=== PATIENT | male | born 1970 | race Caucasian/White ===

== ENCOUNTER 2022-10-02 09:51 | Emergency (ER) | payer MEDICAID, SELFPAY ==
[2022-10-02 10:01] VITALS: BP 131/90; PULSE 102; RESP 20; TEMP 36.6; O2SAT 99; BMI 19.4
[2022-10-02 10:34] LABS: Ammonia 62 umol/L (13-55)
[2022-10-02 10:37] LABS: Hemoglobin 12.1 g/dl (14.0-18.0); Mean Corpuscular HGB Conc 35.6 g/dl (31.0-36.0); Mean Corpuscular Hemoglobin 34.6 pg (27.0-33.0); Mean Corpuscular Volume 97.1 fL (80.0-98.0); Red Cell Distribution Width 13.5 % (11.0-16.0); White Blood Count 4.3 X10*3/uL (4.8-10.8)
[2022-10-02 10:43] LABS: Alanine Aminotransferase 107 U/L (0-40); Albumin Level 2.8 g/dL (3.5-5.0); Alkaline Phosphatase 347 U/L (39-117); Anion Gap 9 (12-20); Aspartate Amino Transferase 83 U/L (5-37); Bilirubin Direct 0.8 mg/dL (0.0-0.5); Bilirubin Total 1.5 mg/dL (0.0-1.0); Blood Urea Nitrogen 15 mg/dL (9-16); Calcium 8.6 mg/dL (8.4-10.2); Carbon Dioxide 26 mmol/L (22-29); Chloride 105 mmol/L (96-108); Creatinine Clr Calc Pharmacy 69.5; Estimated Glomerular Filt Rate > 60; Glucose Random 290 mg/dL (60-115); Lipase 21 U/L (8-78); Potassium 4.4 mmol/L (3.3-5.1); Sodium 136 mmol/L (135-145); Total Protein 8.1 g/dL (6.5-8.0)
[2022-10-02 10:44] LABS: B Type Natriuretic Peptide < 10 pg/mL (<100)
[2022-10-02 11:30] LABS: Mean Platelet Volume 10.5 fL (9.4-12.4); Platelet Count 87 X10*3/uL (160-400)
--- NOTE | 2022-10-02 17:39 | ED_ITS ---
POC Glucose 251 H (60-115) mg/dL Random Glucose (60-115) mg/dL Calcium (8.4-10.2) mg/dL Total Bilirubin (0.0-1.0) mg/dL Direct Bilirubin (0.0-0.5) mg/dL AST (5-37) U/L ALT (0-40) U/L Alkaline Phosphatase (39-117) U/L Ammonia (13-55) umol/L B-Natriuretic Peptide < 10 (<100) pg/mL Total Protein (6.5-8.0) g/dL Albumin (3.5-5.0) g/dL Lipase (8-78) U/L Medications Administered Discontinued Medications Generic Name Dose Route Start Last Admin Trade Name Freq PRN Reason Stop Dose Admin Carvedilol 3.125 mg 10/02/22 18:06 10/02/22 18:18 Carvedilol 3.125 Mg Tablet PO 10/02/22 18:07 3.125 mg ONCE ONE Administration Protocol Furosemide 20 mg 10/02/22 18:06 10/02/22 18:18 Furosemide 20 Mg Tablet PO 10/02/22 18:07 20 mg ONCE ONE Administration Protocol Lactulose 20 gm 10/02/22 18:06 10/02/22 18:18 Lactulose 20 Gm/30 Ml Solution PO 10/02/22 18:07 20 gm ONCE ONE Administration Discharge Plan Discharge Clinical Impression: Hepatic cirrhosis due to chronic hepatitis C infection Patient Disposition: Home, Self-Care Instructions: Cirrhosis (ED), Ascites (ED) Additional Instructions: 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 Follow-up as outpatient report to ED if increase Shortness of breath Prescriptions: New Biktarvy 50-200-25 mg tablet 1 tab PO DAILY Qty: 30 3RF carvedilol 3.125 mg tablet 3.125 mg PO BID Qty: 60 2RF Rx Instructions: must administer with a meal/food doxepin 25 mg capsule 25 mg PO BEDTIME Qty: 30 2RF furosemide 20 mg tablet 20 mg PO QAM Qty: 30 2RF gabapentin 400 mg capsule 800 mg PO BID Qty: 120 2RF lactulose 20 gram/30 mL solution 10 g PO BID Qty: 1200 0RF paroxetine HCl [Paxil] 10 mg tablet 10 mg PO QPM Qty: 30 2RF sofosbuvir-velpatasvir [Epclusa] 400-100 mg tablet 1 tab PO DAILY Qty: 30 0RF spironolactone 50 mg tablet 50 mg PO QAM Qty: 30 2RF Referrals: Regis Frost MD [Physician] - 2 weeks Interventions: ED Discharge Assessment Last Done: 10/02/22 19:17 Discharge Date/Time: 10/02/22 19:17 HPI - Abdominal Pain General Chief Complaint: Abdominal Pain Stated Complaint: abd pain fluid back up Time Seen by Provider: 10/02/22 17:37 Source: patient Mode of arrival: ambulatory Limitations: no limitations History of Present Illness HPI narrative: Patient 52 years old with history of HIV hepatitis-C cirrhosis with ascites just moved from [place] asking for paracentesis. Patient had last% disease a month ago only 1 L of fluid was removed at this time patient does have slight distention of the abdomen without any significant shortness of breath no abdominal pain no fever. Patient ran out of his medication 2 days ago has not taking his furosemide denies any abdominal pain no fever or chills patient looking for GI and asking for medication refills denies any confusion. Blood pressure at time of examination was 102/65 pulse rate 78 saturating 96% at room air Related Data Previous Rx's Medication Instructions Recorded bictegravir 50 mg-emtricitabine 1 tab PO DAILY #30 tabs 10/02/22 200 mg-tenofovir alafenam 25 mg tablet (Biktarvy) carvedilol 3.125 mg tablet 3.125 mg PO BID #60 tabs 10/02/22 doxepin 25 mg capsule 25 mg PO BEDTIME #30 caps 10/02/22 furosemide 20 mg tablet 20 mg PO QAM #30 tabs 10/02/22 gabapentin 400 mg capsule 800 mg PO BID #120 caps 10/02/22 lactulose 20 gram/30 mL oral 10 g (15 mL) PO BID #1,200 mL 10/02/22 solution paroxetine HCl 10 mg tablet (Paxil) 10 mg PO QPM #30 tabs 10/02/22 sofosbuvir 400 mg-velpatasvir 100 1 tab PO DAILY #30 tabs 10/02/22 mg tablet (Epclusa) spironolactone 50 mg tablet 50 mg PO QAM #30 tabs 10/02/22 Allergies Allergy/AdvReac Type Severity Reaction Status Date / Time No Known Allergies Allergy Verified 10/02/22 17:47 Review of Systems Review of Systems Yes all other systems are reviewed and are negative [facility] Past Medical History Medical History (Updated 10/03/22 @ 00:00 by Bibiana Frye) Diabetes mellitus Social History Social History Smoked in Last 30 Days: No Use of substances other than those prescribed or required for medical reasons: No Advance Directives: No Advance Directives Information Provided: No Physical Exam ED Vital Signs: Vital Signs - 24 hr 10/02/22 10:01 10/02/22 17:40 Temperature 97.9 F 98.3 F Pulse Rate 102 H 78 Respiratory Rate 20 18 Blood Pressure 131/90 H 102/65 Pulse Oximetry 99 96 Oxygen Delivery Method Room Air Room Air BMI result Body Mass Index 19.4 Appearance: Alert. Oriented X3. No acute distress. Emaciated Eyes: PERRLA, No Nystagmus ENT: Pharynx normal. Oral Mucosa moist Neck: Normal inspection. Neck supple. CVS: Normal heart rate and rhythm. Pulses normal. Respiratory: No respiratory distress. Equal air entry bilateral, no wheezing/rales/rhonchi Abdomen: Soft free fluid+. Bowel sounds are present, no mass palpable, no CVA tenderness Skin: Skin warm and dry. Normal skin color. Normal skin turgor. Extremities: No lower extremity edema. No calf tenderness Neuro: Oriented X 3. No motor deficit. Medical Decision Making Lab Data MDM Lab Attestation statement: I reviewed the patient's lab results. Result Diagrams: 10/02/22 10:15 10/02/22 10:15 Labs: Lab Results 10/02/22 10/02/22 10/02/22 Range/Units 10:15 10:15 10:15 WBC 4.3 L (4.8-10.8) X10*3/uL RBC 3.50 L (4.60-5.80) X10*6/uL Hgb 12.1 L (14.0-18.0) g/dl Hct 34.0 L (42.0-52.0) % MCV 97.1 (80.0-98.0) fL MCH 34.6 H (27.0-33.0) pg MCHC 35.6 (31.0-36.0) g/dl RDW 13.5 (11.0-16.0) % Plt Count 87 L (160-400) X10*3/uL MPV 10.5 (9.4-12.4) fL Absolute Nucleated RBC 0.000 (0.0-0.012) X10*3/uL Nucleated RBC % (auto) 0.0 (0.0-0.2) /100WBC Sodium 136 (135-145) mmol/L Potassium 4.4 (3.3-5.1) mmol/L Chloride 105 (96-108) mmol/L Carbon Dioxide 26 (22-29) mmol/L Anion Gap 9 L (12-20) BUN 15 (9-16) mg/dL Creatinine 0.83 (0.5-1.4) mg/dL Estim Creat Clear Calc 69.5 Estimated GFR > 60 POC Glucose (60-115) mg/dL Random Glucose 290 H (60-115) mg/dL Calcium 8.6 (8.4-10.2) mg/dL Total Bilirubin 1.5 H (0.0-1.0) mg/dL Direct Bilirubin 0.8 H (0.0-0.5) mg/dL AST 83 H (5-37) U/L ALT 107 H (0-40) U/L Alkaline Phosphatase 347 H (39-117) U/L Ammonia 62 H (13-55) umol/L B-Natriuretic Peptide (<100) pg/mL Total Protein 8.1 H (6.5-8.0) g/dL Albumin 2.8 L (3.5-5.0) g/dL Lipase 21 (8-78) U/L 10/02/22 10/02/22 Range/Units 10:15 18:07 WBC (4.8-10.8) X10*3/uL RBC (4.60-5.80) X10*6/uL Hgb (14.0-18.0) g/dl Hct (42.0-52.0) % MCV (80.0-98.0) fL MCH (27.0-33.0) pg MCHC (31.0-36.0) g/dl RDW (11.0-16.0) % Plt Count (160-400) X10*3/uL MPV (9.4-12.4) fL Absolute Nucleated RBC (0.0-0.012) X10*3/uL Nucleated RBC % (auto) (0.0-0.2) /100WBC Sodium (135-145) mmol/L Potassium (3.3-5.1) mmol/L Chloride (96-108) mmol/L Carbon Dioxide (22-29) mmol/L Anion Gap (12-20) BUN (9-16) mg/dL Creatinine (0.5-1.4) mg/dL Estim Creat Clear Calc Estimated GFR
[2022-10-02 17:40] VITALS: BP 102/65; PULSE 78; RESP 18; TEMP 36.8; O2SAT 96
[2022-10-02 18:12] LABS: Glucose, Whole Blood 251 mg/dL (60-115)
[2022-10-02] MEDS: carvediloL 3.125 MG TABLET PO (18:18)
[2022-10-02] MEDS: Lactulose 20 GM/30 ML SOLUTION PO (18:18)
[2022-10-02] MEDS: Furosemide 20 MG TABLET PO (18:18)
--- NOTE | 2022-10-02 19:17 | PC.NURSE ---
Discharge instructions reviewed with pt. Pt verbalizes understanding.
== END 2022-10-02 19:17 | disposition home or self-care (01) ==
LOC: HO.ED 18:49
PROVIDERS: Emergency Provider Internal Medicine
DX: B18.2 Chronic viral hepatitis C (principal); K74.60 Unspecified cirrhosis of liver; R06.02 Shortness of breath; Z79.899 Other long term (current) drug therapy
CPT/HCPCS: 36415; 80048; 80076; 82140; 82947; 83690; 83880; 85027; 99283; 99284

== ENCOUNTER 2022-10-27 14:40 | Outpatient (REF) | payer OTHER, SELFPAY | END 2022-10-27 14:41 | disposition home or self-care (01) | LOC: HO.LAB 14:40 | PROVIDERS: Visit Provider Internal Medicine | DX: B18.2 Chronic viral hepatitis C (principal); K74.60 Unspecified cirrhosis of liver; B20 Human immunodeficiency virus [HIV] disease; Z79.899 Other long term (current) drug therapy | CPT/HCPCS: 99202 ==

== ENCOUNTER 2022-11-01 10:50 | Outpatient (REF) | payer OTHER, SELFPAY ==
[2022-11-01 12:30] LABS: INTERNATIONAL NORM RATIO 1.1 (0.9-1.1); Prothrombin Time 12.8 SEC (10.0-13.1)
[2022-11-01 13:07] LABS: Alanine Aminotransferase 87 U/L (0-40); Albumin Level 3.1 g/dL (3.5-5.0); Alkaline Phosphatase 200 U/L (39-117); Aspartate Amino Transferase 82 U/L (5-37); Bilirubin Direct 0.6 mg/dL (0.0-0.5); Bilirubin Total 1.3 mg/dL (0.0-1.0); Gamma Glutamyl Transpeptidase 322 U/L (11-51); Iron 76 mcg/dL (45-160); Percent Iron Saturation 27 % (15-50); Total Iron Binding Capacity 280 mcg/dL (228-428); Total Protein 8.6 g/dL (6.5-8.0); Unsaturated Iron Binding 204 ug/dL
[2022-11-01 13:41] LABS: Folate 15.3 ng/mL (> or = 4.0); Vitamin B12 1897 pg/mL (200-900)
[2022-11-01 13:49] LABS: Ferritin 76 ng/mL (20-250); Vitamin D 25-OH Total 17.7 ng/mL (>30)
[2022-11-02 10:18] LABS: HBS Num1 18.67 mIU/mL (0-7.99); HBsAGNum1 0.26 S/CO (0.00-0.99); Hepatitis B Surface Antigen Negative (Negative); ~Hepatitis B Surface Antibody REACTIVE (Nonreactive)
[2022-11-02 10:21] LABS: Hepatitis A Antibody IgG REACTIVE (Nonreactive); ~Hepatitis A Antibody IgG 10.11 S/CO (0.00-0.99)
[2022-11-02 12:14] LABS: HIV AB/AG Reactive (Nonreactive)
[2022-11-02 12:48] LABS: Absolute CD4 Count 365 cells/uL (490-1740); Absolute CD8 Count 342 cells/uL (180-1170); Absolute Lymphocytes 1146 cells/uL (850-3900); CD4 CD8 Ratio 1.07 (0.86-5.00); Percent CD4 Cells 32 % (30-61); Percent CD8 Cells 30 % (12-42)
[2022-11-02 12:49] LABS: HBc Num1 8.12 S/CO (0.00-0.79)
[2022-11-02 12:53] LABS: HBc Num2 7.63 S/CO; HBc Num3 8.43 S/CO; Hepatitis B Core Antibody Reactive (Nonreactive)
== END 2022-11-01 10:51 | disposition home or self-care (01) ==
LOC: HO.LAB 10:50
PROVIDERS: Visit Provider Internal Medicine
DX: B20 Human immunodeficiency virus [HIV] disease (principal); B18.2 Chronic viral hepatitis C; K74.60 Unspecified cirrhosis of liver
CPT/HCPCS: 36415; 80076; 82306; 82607; 82728; 82746; 82784; 82977; 83540; 85610; 86015; 86255; 86256; 86360; 86376; 86704; 86706; 86708; 86803; 87340; 87389

== ENCOUNTER → 2022-11-08 11:24 | Outpatient (BNVA) | payer OTHER, SELFPAY | PROVIDERS: Visit Provider Internal Medicine | DX: B20 Human immunodeficiency virus [HIV] disease (principal); B19.20 Unspecified viral hepatitis C without hepatic coma; K74.60 Unspecified cirrhosis of liver; A63.0 Anogenital (venereal) warts | CPT/HCPCS: 99202 ==

== ENCOUNTER 2022-11-24 10:02 | Outpatient (REF) | payer MEDICAID, SELFPAY ==
[2022-11-24 11:03] LABS: Potassium Urine Random 21.2 mmol/L
[2022-12-01 09:33] LABS: Hepatitis C Genotype 1a
== END 2022-11-24 10:03 | disposition home or self-care (01) ==
LOC: HO.LAB 10:02
PROVIDERS: Visit Provider Internal Medicine
DX: B18.2 Chronic viral hepatitis C (principal); K74.60 Unspecified cirrhosis of liver
CPT/HCPCS: 36415; 84133; 84300; 87902

== ENCOUNTER → 2022-11-28 12:33 | Outpatient (BNVA) | payer MEDICAID, SELFPAY | PROVIDERS: Visit Provider Internal Medicine | DX: B18.2 Chronic viral hepatitis C (principal); K74.60 Unspecified cirrhosis of liver; B20 Human immunodeficiency virus [HIV] disease; R76.8 Other specified abnormal immunological findings in serum | CPT/HCPCS: 99212 ==

== ENCOUNTER 2022-11-30 08:07 | Outpatient (REF) | payer MEDICAID, SELFPAY ==
[2022-11-30 09:31] LABS: Anion Gap 12 (12-20); Blood Urea Nitrogen 11 mg/dL (9-16); Calcium 8.3 mg/dL (8.4-10.2); Carbon Dioxide 27 mmol/L (22-29); Chloride 100 mmol/L (96-108); Estimated Glomerular Filt Rate > 60; Glucose Random 359 mg/dL (60-115); Potassium 3.9 mmol/L (3.3-5.1); Sodium 135 mmol/L (135-145)
[2022-12-03 08:03] LABS: HIV RNA PCR Qn Copies <20 DETECTED copies/mL (NOT DETECTED); HIV RNA PCR Qn Log Copies <1.30 DETECTED (NOT DETECTED)
[2022-12-11 19:29] LABS: Hepatitis Delta Antibody NEGATIVE
== END 2022-11-30 08:08 | disposition home or self-care (01) ==
LOC: HO.LAB 08:07
PROVIDERS: Visit Provider Internal Medicine
DX: Z11.4 Encounter for screening for human immunodeficiency virus [HIV] (principal); K74.60 Unspecified cirrhosis of liver; B20 Human immunodeficiency virus [HIV] disease; R76.8 Other specified abnormal immunological findings in serum; Z79.899 Other long term (current) drug therapy
CPT/HCPCS: 36415; 80048; 82105; 86692; 87536

== ENCOUNTER 2023-01-02 08:15 | Outpatient (REF) | payer MEDICAID, SELFPAY ==
--- NOTE | ~2023-01-02 | US_ITS ---
EXAMINATION: US ABDOMEN COMPLETE CLINICAL INFORMATION: Chronic viral hepatitis C. COMPARISON: None available. TECHNIQUE: Real-time imaging of the abdominal viscera. FINDINGS: PANCREAS: The pancreas appears unremarkable, without masses or ductal dilatation, with the exception of the tail which is obscured by bowel gas. ABDOMINAL AORTA: The aorta demonstrates calcific atherosclerotic changes without evidence of aneurysm. INFERIOR VENA CAVA: Visualized portions are normal. LIVER: The liver is extremely heterogeneous in echotexture. There is an area of calcification in the left lobe of the liver that measures 3 x 4 x 4 mm. There is a 1.6 x 1.2 x 1.1 cm liver mass seen adjacent to the gallbladder fossa with heterogeneous echogenicity. There is no intrahepatic biliary duct dilatation seen. DOPPLER INTERROGATION: The portal venous system is patent with normal hepatopedal flow. The main, right and left hepatic arteries are patent. Velocity in the main hepatic artery is 45 cm/s. Middle left and right hepatic veins are normal and patent. The IVC is patent with a normal waveform. GALLBLADDER: The gallbladder wall is thickened at 6 mm with fluid seen within the wall of the gallbladder. A 3 mm gallbladder polyp is seen. COMMON BILE DUCT: Normal in caliber measuring 0.7 cm in diameter. RIGHT KIDNEY: Two cysts are noted in the right kidney measuring 1.4 and 1.6 cm. One has a thin septum. These are benign Bosniak class I and II and need no additional imaging or followup. No hydronephrosis. No renal calculi or focal parenchymal lesions. The kidney measures 8.9 cm in maximum dimension. LEFT KIDNEY: No hydronephrosis. No renal calculi or focal parenchymal lesions. The kidney measures 11.0 cm in maximum dimension. SPLEEN: The spleen is enlarged measuring 13.2 cm in maximum dimension. FREE FLUID: None. US/US duplex arterial venous comp IMPRESSION: 1. Heterogeneous liver with a 1.6 cm mass adjacent to the gallbladder fossa. MRI is recommended for further evaluation. 2. Thickened gallbladder wall with fluid in the wall and gallbladder polyp. Please correlate clinically.
== END 2023-01-02 08:16 | disposition home or self-care (01) ==
LOC: HO.US 08:15
PROVIDERS: Visit Provider Internal Medicine
DX: B18.2 Chronic viral hepatitis C (principal); K74.60 Unspecified cirrhosis of liver
CPT/HCPCS: 76700; 93975

== ENCOUNTER → 2023-01-15 13:21 | Outpatient (BNVA) | payer MEDICAID, SELFPAY | PROVIDERS: Visit Provider Internal Medicine | DX: K74.60 Unspecified cirrhosis of liver (principal); B18.2 Chronic viral hepatitis C; B20 Human immunodeficiency virus [HIV] disease; R16.0 Hepatomegaly, not elsewhere classified; R76.8 Other specified abnormal immunological findings in serum; Z79.899 Other long term (current) drug therapy | CPT/HCPCS: 99212 ==

== ENCOUNTER 2023-01-24 13:42 | Outpatient (REF) | payer MEDICAID, SELFPAY ==
--- NOTE | ~2023-01-24 | CT_ITS ---
EXAMINATION: CT ABDOMEN AND PELVIS WITH CONTRAST CLINICAL INFORMATION: Left lower quadrant abdominal pain COMPARISON: Ultrasound abdomen 01/02/2023 TECHNIQUE: Multidetector volumetric images were obtained from the superior aspect of the liver through the pubic symphysis following administration 85 mL of Omnipaque 350 intravenous contrast. Sagittal and coronal reformatted images were obtained on the technologist's workstation. Oral contrast: No This CT examination was performed using dose optimization techniques as appropriate, variously including the following: *Automated exposure control *Adjustment of mA and/or kV according to patient size (this includes techniques or standardized protocols for targeted exams where dose is matched to indication/reason for exam; i.e. extremities or head) *Use of iterative reconstruction technique DLP: 246 mGy-cm FINDINGS: LUNG BASES: The visualized lung bases are unremarkable. LIVER, GALLBLADDER, AND BILIARY TREE: The liver has a cirrhotic appearance without nodular border. Again seen is a mass adjacent to the gallbladder measuring 1.7 x 1.8 cm which is much better seen on both the prior ultrasound MRI. This is consistent with malignancy although not felt to be classic for hepatocellular carcinoma. Percutaneous biopsy could always be performed if necessary. No biliary ductal dilatation is seen. The gallbladder is contracted and not well evaluated. PANCREAS: Unremarkable. SPLEEN: Spleen is enlarged measuring 15 ccm. Splenic calcification is seen along with repeat imaging of a 1.4 cm subcapsular hypodensity thought to be a hemangioma on the prior MRI. ADRENAL GLANDS: Unremarkable. KIDNEYS AND URETERS: The kidneys are normal in size, shape, and attenuation. Multiple hypodensities seen in both kidneys are all of which measure water density with the exception of 1.5 cm right mid kidney mass which measures about 30 Hounsfield units, probably a hyperattenuating cyst as only cysts were seen on the prior ultrasound. No hydronephrosis, hydroureter, or calculi seen. No perinephric stranding. BLADDER: Unremarkable. GASTROINTESTINAL TRACT: The small and large bowel are unremarkable. The appendix is unremarkable. ABDOMINAL WALL: No significant hernia is appreciated. LYMPH NODES: No retroperitoneal lymphadenopathy. VASCULAR: Unremarkable. PELVIC VISCERA: Mild BPH. Seminal vesicles appear normal OSSEOUS STRUCTURES: Unremarkable. CT/CT abdomen pelvis w IV con IMPRESSION: 1. Cirrhotic-appearing liver with a 1.8 cm mass adjacent to the gallbladder. This is consistent with malignancy although not felt to be classic for hepatocellular carcinoma. Percutaneous biopsy could always be performed if necessary. 2. Splenomegaly. 3. Bilateral Bosniak class I renal cysts which need no additional follow-up. 4. Other incidental findings as described above. Fleischner guidelines were followed.
[2023-01-24] MEDS: iohexoL 350 MG/ML 100 ML INFUS..BTL IV (17:08)
[2023-01-24] MEDS: Barium Sulfate Oral (Berry) 450 ML ORAL.SUSP 900 ML PO (17:08)
== END 2023-01-24 13:43 | disposition home or self-care (01) ==
LOC: HO.CT 13:42
PROVIDERS: PCP General Practice; Visit Provider Nurse Practitioner Primary Care
DX: R10.32 Left lower quadrant pain (principal); R31.9 Hematuria, unspecified
CPT/HCPCS: 74177; Q9967

== ENCOUNTER 2023-01-25 13:44 | Outpatient (REF) | payer MEDICAID, SELFPAY ==
--- NOTE | ~2023-01-25 | MR_ITS ---
EXAMINATION: MR ABDOMEN WITHOUT AND WITH CONTRAST CLINICAL INFORMATION: Hepatomegaly. History of chronic hepatitis C. Mass identified within the liver on prior imaging exams. COMPARISON: Ultrasound abdomen from 01/02/2023. CT abdomen from 01/24/2023. Abdomen MRI from 08/26/2022. TECHNIQUE: MR abdomen was performed without and with use of 4 mL intravenous Gadavist. Postcontrast images are performed in multiphase dynamic sequences. Imaging was performed in 3 planes. FINDINGS: LUNG BASES: The visualized lung bases are unremarkable. LIVER, GALLBLADDER, AND BILIARY TREE: The cirrhotic liver is relatively small with right lobe measuring 10.8 cm in craniocaudal dimension. There is a slightly heterogeneous, reticular pattern of enhancement of the liver parenchyma, consistent with presence of liver fibrosis in this patient with history of chronic hepatitis. Compared to the prior MRI from 08/26/2022, there has been resolution of the complex T2 hyperintense, peripherally enhancing segment 4 lesion. Instead, this follow-up MRI shows a residual small 0.8 cm focus of intrinsic T1 signal shortening which could represent proteinaceous material or blood products at site of a prior hepatic abscess. No evidence of any arterial hyperenhancing liver lesion. There are no foci that exhibit contrast washout or capsular features. The portal and hepatic veins are patent. The gallbladder is underdistended and not optimally evaluated. No overt cholelithiasis. There are no dilated bile ducts. The common bile duct is 0.4 cm diameter. PANCREAS: Unremarkable. SPLEEN: Chronic splenomegaly. Spleen measures up to 14.5 cm maximum dimension. A 1.2 cm T2 hyperintense subcapsular lesion in the lateral spleen enhances heterogeneously after contrast administration and this is stable compared to 08/26/2022. Imaging features are suggestive of cavernous hemangioma. No new splenic lesion. ADRENAL GLANDS: Normal. KIDNEYS AND URETERS: Kidneys are normal in size. No hydronephrosis or perinephric edema. There are a few simple cysts of the kidneys. No renal imaging follow-up is recommended for simple cysts. GASTROINTESTINAL TRACT: No dilated loops of bowel. No mesenteric fat stranding or free fluid. ABDOMINAL WALL: Unremarkable. LYMPH NODES: No pathologic sized lymph nodes. VASCULAR: Abdominal aorta is normal in caliber. The celiac trunk and its branches are widely patent. The SMA, SUSANNE and renal arteries are normal. Inferior vena cava is normal. Splenic, portal and hepatic veins are patent. There are esophageal and perigastric varices. OSSEOUS STRUCTURES: No suspicious bone lesions. MR/MR abdomen wo/w con IMPRESSION: * Cirrhotic liver, varices and splenomegaly. * No imaging evidence of hepatocellular carcinoma. * Compared to prior MRI from 08/26/2022, there has been resolution of the complex rim-enhancing lesion of segment 4 that previously measured up to approximately 5 cm. Instead, this follow-up MRI shows a small 0.8 cm focus of intrinsic T1 signal shortening from blood products or proteinaceous material at the site of the suspected abscess. No interval development of a hyperenhancing liver lesion or lymphadenopathy.
== END 2023-01-25 13:45 | disposition home or self-care (01) ==
LOC: HO.MRI 13:44
PROVIDERS: Visit Provider Internal Medicine
DX: R16.0 Hepatomegaly, not elsewhere classified (principal); R74.01 Elevation of levels of liver transaminase levels
CPT/HCPCS: 74183; A9585

== ENCOUNTER → 2023-03-09 10:57 | Outpatient (BNVA) | payer MEDICAID, SELFPAY | PROVIDERS: PCP General Practice; Visit Provider Internal Medicine Endocrinology, Diabetes & Metabolism | DX: E11.9 Type 2 diabetes mellitus without complications (principal); Z79.4 Long term (current) use of insulin | CPT/HCPCS: 82947; 99202 ==

== ENCOUNTER → 2023-03-28 13:58 | Outpatient (BNVA) | payer MEDICAID, SELFPAY | PROVIDERS: PCP General Practice; Visit Provider Internal Medicine | DX: B18.2 Chronic viral hepatitis C (principal); K74.60 Unspecified cirrhosis of liver; B20 Human immunodeficiency virus [HIV] disease; R76.8 Other specified abnormal immunological findings in serum; R16.0 Hepatomegaly, not elsewhere classified | CPT/HCPCS: 99212 ==

== ENCOUNTER 2023-04-06 12:15 | Outpatient (REF) | payer MEDICAID, SELFPAY ==
[2023-04-06 13:00] LABS: Hematocrit 40.1 % (42.0-52.0); Hemoglobin 14.3 g/dl (14.0-18.0); Mean Corpuscular HGB Conc 35.7 g/dl (31.0-36.0); Mean Corpuscular Hemoglobin 32.9 pg (27.0-33.0); Mean Corpuscular Volume 92.2 fL (80.0-98.0); Mean Platelet Volume 11.5 fL (9.4-12.4); Red Blood Count 4.35 X10*6/uL (4.60-5.80); Red Cell Distribution Width 15.1 % (11.0-16.0); White Blood Count 3.5 X10*3/uL (4.8-10.8)
[2023-04-06 13:05] LABS: Platelet Count 75 X10*3/uL (160-400)
[2023-04-06 13:12] LABS: Prothrombin Time 11.6 SEC (10.0-13.1)
[2023-04-06 13:31] LABS: Amphetamine Screen Urine Not Detected (Not Detect); Barbiturates, Urine Not Detected (Not Detect); Benzodiazepines Screen Urine Not Detected (Not Detect); Cannabinoid Screen Urine Not Detected (Not Detect); Cocaine Screen Urine Not Detected (Not Detect); Fentanyl, urine Not Detected (Not Detect); Opiate Screen Urine Not Detected (Not Detect); Phencyclidine Screen Urine Not Detected (Not Detect); Potassium Urine Random 12.8 mmol/L
[2023-04-06 13:39] LABS: Alanine Aminotransferase 72 U/L (0-40); Albumin Level 2.9 g/dL (3.5-5.0); Alkaline Phosphatase 139 U/L (39-117); Anion Gap 8 (12-20); Aspartate Amino Transferase 77 U/L (5-37); Bilirubin Total 1.5 mg/dL (0.0-1.0); Blood Urea Nitrogen 14 mg/dL (9-16); Calcium 9.2 mg/dL (8.4-10.2); Carbon Dioxide 26 mmol/L (22-29); Chloride 109 mmol/L (96-108); Estimated Glomerular Filt Rate > 60; Glucose Random 153 mg/dL (60-115); Potassium 4.1 mmol/L (3.3-5.1); Sodium 139 mmol/L (135-145); Total Protein 7.4 g/dL (6.5-8.0)
[2023-04-07 18:48] LABS: HepC Viral Load 1270000 IU/mL (NOT DETECTED)
== END 2023-04-06 12:16 | disposition home or self-care (01) ==
LOC: HO.LAB 12:15
PROVIDERS: PCP General Practice; Visit Provider Internal Medicine
DX: B19.20 Unspecified viral hepatitis C without hepatic coma (principal)
CPT/HCPCS: 80053; 80307; 84133; 84300; 85027; 85610; 87522

== ENCOUNTER 2023-04-27 10:53 | Outpatient (AMB) | payer MEDICAID, SELFPAY ==
--- NOTE | 2023-04-27 11:42 | A.OFFVIS_ITS ---
Intake Intake Visit Reasons: DM Equipment Or Machinery Cleaner Required: No Accompanied by: Self / Same As Patient Allergies No Known Allergies Allergy (Verified 03/28/23 14:00) HPI Comprehensive Diabetes Asmnt Most Recent Diabetes Results: Creatinine 0.92 mg/dL (0.5-1.4) 04/06/23 Blood Urea Nitrogen 14 mg/dL (9-16) 04/06/23 Sodium 139 mmol/L (135-145) 04/06/23 Potassium 4.1 mmol/L (3.3-5.1) 04/06/23 Chloride 109 mmol/L (96-108) H 04/06/23 Carbon Dioxide 26 mmol/L (22-29) 04/06/23 Calcium 9.2 mg/dL (8.4-10.2) 04/06/23 AST 77 U/L (5-37) H 04/06/23 ALT 72 U/L (0-40) H 04/06/23 Total Protein 7.4 g/dL (6.5-8.0) 04/06/23 Albumin 2.9 g/dL (3.5-5.0) L 04/06/23 [facility] Medical History Cirrhosis Diabetes mellitus Hepatitis C HIV (human immunodeficiency virus infection) Venereal warts Surgical History History of esophagogastroduodenoscopy (EGD) Family History Paternal Grandfather Colon cancer Social History Alcohol intake: current Alcohol intake frequency: holidays/special occasions only Tobacco use type: Cigarette Cigarettes Per Day: 3 Assessment & Plan Assessment & Plan (1) Diabetes mellitus: Code(s): E11.9 - Type 2 diabetes mellitus without complications Plan: Diabetes self-management education and support participation record Assessment/scale: 1= needs instructed? 2= needs review? 3= comprehend keep point? 4= demonstrates understanding/ competent? NC= Not Covered Topics Learning Objective: Initial visit Initial or post srvc Initial or post srvc Initial or post srvc Initial or post srvc Initial or post srvc Post srvc Comments Pre Edu-assessment/plan Outcome or reassess Outcome or reassess Outcome or reassess Outcome or reassess Outcome or reassess Outcome or reassess Diabetes pathophysiology 1 Healthy eating 2 Being active 1 Taking medication 1 Monitoring glucose Acute complication Chronic complicated Lifestyle and healthy coping Diabetes distress in support ?Diabetes pathophysiology: ?Defined diabetes med identify own type of diabetes; list 3 options for treating diabetes Healthy eating: ?Described effect of type, amount and ?timing of food on blood glucose; list 3 methods for planning meal Being active: ?State effect of exercise on blood glucose level Taking medication: ?State effect of diabetes medications on diabetes; name diabetes medications taking, action and side effects Monitoring glucose: ?Identify recommended blood glucose targets and personal target Acute complication: ?List symptoms and treatment of hyper and hypoglycemia, DKA, sick day guidelines and guidelines for severe weather or situations of crisis and diabetes supply manage Chronic complication: ?To find the relationship of blood glucose levels to long- term complications of diabetes in screening and preventative measures Lifestyle and healthy coping: ?Described lifestyle and healthy coping strategies to rule out diabetes self-management Diabetes to stress and support: ?Recognize Diabetes to stress and be able to identified support options Learning objectives: The patient was provided with verbal and written education on the following topics as outlined below. The patient met all learning objectives and was able to verbalize understanding and provide teach back of education topics discussed . The patient was provided with the opportunity to ask questions and all questions were answered. Patient Assessment Assess patient education level/literacy/barriers Patient's last A1c on 01/01/2023 11%, patient has upcoming appointment with Dr. Jones May 2023 where he will be due for next A1c Patient questions/concerns, patient reports he has been taking Humalog 15 units before meals, Lantus 10 units at bedtime, patient does report that occasionally he will forget to take Lantus because he falls asleep. Recommended to patient he move Lantus 10 units to time of day where he will be able to take it consistently in addition increase Lantus to 14 units Discussed with patient insulin action of Humalog, patient reports he took 15 units approximately 845 a.m. had a glass of start very quick at time of appointment patient's glucose was 100 mg/dL, trend arrow was pointing straight downward. Explained to patient this indicated the patient would be at high risk for having hypoglycemic event if he did not treat with fast acting carbohydrate. Patient's prescription for Humalog reads start 5 units before meals, patient has increase this independently because he felt that 5 units was not stop enough insulin Recommended to patient he take Humalog 6 units with small meals, Humalog 10 units with large meals What is Diabetes? Pathophysiology How the body produces and uses insulin Identify type of DM Risk factors Signs of Diabetes Brief overview of Diabetes Management Monitoring blood sugar Following a meal plan Regular exercise Maintaining a healthy weight Taking medication as needed Members of the care team (PCP, RN, MA, RD, CDE, police booking officer) Blood glucose monitoring When/how often to test Target blood sugar ranges Patient is currently using freestyle Lyle 2, at this visit we were unable to connect to [facility] [employer] due to error on patient's smart phone Patient's average glucose for the last 14 days to 25 mg/dL Patient is 75% above target At target 24% Below target 1% Introduction to Nutrition Importance of healthy diet in managing DM Diet is personalized to individual preference Review patient?s regular diet/food preferences Who prepares meals/does food shopping/ Dining out?/ Barriers? How diet effects glucose Eating 3 balanced meals a day with small, healthy snacks between meals Review food groups Carbohydrates: What is a carbohydrate/Which food/food groups are considered carbohydrates Effect of carbohydrates on blood glucose Portion sizes Reading food labels Basic carb counting (if applicable per nursing assessment) Plate method Meal planning Recommendations: Follow plate method, consistent carbs and read nutritional labels. Smart Goal: Patient will test glucose prior to each meal, take Humalog 15 minutes prior to meal Educational Materials: The patient was provided with the following written educational materials: Planning Healthy Meals Handout Patient Response to instructions: Comprehension of Instructions: Fair Readiness to make changes: Contemplation How confident they feel about making fair Medications: Discontinued flash glucose sensor (FreeStyle Lyle 2 Sensor kit) Discontinued Reason: Doctor's Order As directed- change every 14 days 2 ea 5RF flash glucose scanning reader (FreeStyle Lyle 2 [place]) Discontinued Reason: Doctor's Order As directed 1 ea 0RF Patient Instructions: Include regular daily activity. ADA recommends 30 minutes of exercise 5 days a week. Weight loss talk to PCP or Pastry Cook Apprentice before starting new plan. Test blood sugar as directed; Fasting and 2hpp largest meal. Watch trends in results. Utilize results and to assess how food, physical activity and medications affect blood sugar results. Bring glucometer or CGM to next visit. Be knowledgeable about diabetes medication, its action, side effects, efficacy, toxicity, prescribed dosage, appropriate timing and frequency of administration, effect of missed and delayed doses and instructions for storage, travel and safety. Increase Lantus 10 units to Lantus 14 units Humalog 6 units small meals Humalog 10 units for large meals follow up with nurse in 6 weeks Coding Level of Care Code Est Pt Level 1 (19024) Diagnoses Diabetes mellitus E11.9
== END 2023-04-27 11:54 | disposition home or self-care (01) ==
PROVIDERS: PCP General Practice; Visit Provider Registered Nurse Diabetes Educator
DX: E11.9 Type 2 diabetes mellitus without complications (principal)

== ENCOUNTER → 2023-04-27 10:53 | Outpatient (BNVA) | payer MEDICAID, SELFPAY | PROVIDERS: Visit Provider Registered Nurse Diabetes Educator | DX: E11.9 Type 2 diabetes mellitus without complications (principal) | CPT/HCPCS: 99211 ==

== ENCOUNTER 2023-05-01 09:55 | Outpatient (AMB) | payer MEDICAID, SELFPAY ==
[2023-05-01 10:03] VITALS: BMI 19.5
--- NOTE | 2023-05-01 10:03 | MHC.AMNUTRGE ---
Intake VS Expanded 05/01/23 10:03 05/14/23 12:34 Height 5 ft 1 in 5 ft 1 in Weight 103 lb 4 oz 103 lb BMI 19.5 19.5 Intake Visit Reasons: DM2 Allergies No Known Allergies Allergy (Verified 03/28/23 14:00) HPI Nutrition Presentation Details Pt presents for MNT for T2DM . Pt was referred by Dr. Jones, optical fabricator Pt has hx of Hep C , cirrhosis and is currently on Lantus once/day and Humalog with meals and has rx for glucose sensor Pt reports doing well, having difficulties with trevor 3 gluc sensor (Pt was referred to DM educator who provided assistance at the end of the visit) Pt reports eating well. Pt verbalizes role of healthy plate method and role of lean protein foods for glucose control. Pt reports he is gradually gaining weight (from 95 lbs in 2021 and has maintained wt of 103 lbs since 02/2023. Food frequency fruits:0-1/d vegetables: 2 serving/d dairy: 1-2 /d protein : poultry/beef/fish/eggs/ starches: starchy veg/rice/pasta/breads, choosing complex/simple carbs combination ETH 1-2 yr smoking: denies CTT-Bcnible-Pf.Jeor Equation Height 5 ft 1 in Weight 103 lb Resting Metabolic Rate 1189.19 Calculated Activity Level Mild Activity Calories Needed to Maintain Weight 1635.14 Diagnosis Nutrition problem #1 food nutri know defi As related to (etiology) #1 diagnosis As evidenced by (sign/symptom) #1 knowledge deficit of diet Most Recent Diabetes Results: Creatinine 0.92 mg/dL (0.5-1.4) 04/06/23 Blood Urea Nitrogen 14 mg/dL (9-16) 04/06/23 Sodium 139 mmol/L (135-145) 04/06/23 Potassium 4.1 mmol/L (3.3-5.1) 04/06/23 Chloride 109 mmol/L (96-108) H 04/06/23 Carbon Dioxide 26 mmol/L (22-29) 04/06/23 Calcium 9.2 mg/dL (8.4-10.2) 04/06/23 AST 77 U/L (5-37) H 04/06/23 ALT 72 U/L (0-40) H 04/06/23 Total Protein 7.4 g/dL (6.5-8.0) 04/06/23 Albumin 2.9 g/dL (3.5-5.0) L 04/06/23 [facility] Medical History Cirrhosis Diabetes mellitus Hepatitis C HIV (human immunodeficiency virus infection) Venereal warts Surgical History History of esophagogastroduodenoscopy (EGD) Family History Paternal Grandfather Colon cancer Social History Alcohol intake: current Alcohol intake frequency: holidays/special occasions only Tobacco use type: Cigarette Cigarettes Per Day: 3 Assessment & Plan Assessment & Plan (1) Diabetes mellitus: Comment: RECOMMEND Nutritional Supplement related to Cirrhosis: Ensure high protein once a day Code(s): E11.9 - Type 2 diabetes mellitus without complications Plan: Est kcal needs as per MSJ: 47 kg (40% carb, 30% protein/fat) Est fluid needs as per 25-30 ml/d: 1170 Est prot per day as per 1 g/kg bw: 47 Recommend fiber intake : 8-10 g per day and gradually increase to 25-28 g per day for women and 35-38 g for men or as tolerated Recommend sodium intake per day : less than 2000 mg Educated patient on: ( R = reviewed V = verbalizes understanding N/R = needs review N/A = not applicable Food sources of carbohydrate, adequate serving sizes and its role in various health conditions: V Differences between complex carbohydrates a simple carbohydrates, role of fiber in diet: V Differences between types of fats and role in diet (mono on saturated fat fatty acids, saturated fatty acids, trans fats): V Food sources of sodium in salt and healthy modifications for heart health in kidney health: V Vitamins and minerals: V Healthy plate method concept: R V Physical activity: Benefits a precaution: R V Hypoglycemia protocol (rule of 15): R V Dietary prevention of Hyperglycemia: R V Patient Instructions: Choose low sodium sources of foods Follow healthy plate method at dinner time Include protein foods in each meal and snack, opt for variety (legumes, eggs, poultry , lean beef/pork, cheese , tofu ) Continue abstaining from alcohol Have a nutritional supplement instead of skipping a meal Coding Level of Care Code Nutr Indiv Intake (21018) Diagnoses Diabetes mellitus E11.9 Time Spent (min) 30
[2023-05-14 12:34] VITALS: BMI 19.5
== END 2023-05-01 10:45 | disposition home or self-care (01) ==
PROVIDERS: PCP General Practice; Visit Provider Dietitian, Registered
DX: E11.9 Type 2 diabetes mellitus without complications (principal)

== ENCOUNTER → 2023-05-01 09:55 | Outpatient (BNVA) | payer MEDICAID, SELFPAY | PROVIDERS: Visit Provider Dietitian, Registered | DX: E11.9 Type 2 diabetes mellitus without complications (principal) | CPT/HCPCS: 97802 ==

== ENCOUNTER 2023-05-25 13:55 | Outpatient (AMB) | payer MEDICAID, SELFPAY ==
--- NOTE | 2023-05-25 13:58 | A.OFFVIS_ITS ---
Intake Vital Signs 05/25/23 14:01 Height 5 ft 1 in Weight 104 lb 7.986 oz BMI 19.7 BP 112/82 Blood Pressure Location Lt brachial Position Sitting Pulse 74 Pulse Source Pulse Oximeter Intake Visit Reasons: F/up Type 2 DM Intake Note: Patient present today to follow up on Type 2 Diabetes Mellitus. Patient receives DME supplies through: Pharmacy Last Diabetic Eye exam: 02/2023 Last Podiatry Visit: 04/2023 Random Glucose: 442 mg/dl 2:12 pm, 425 mg/dl 3:22 pm, patient requested to have it checked again 449 mg/dl 3:23 pm. 284 mg/dl 4:12 pm. HgA1C: 9.1% Manager Surgery Required: No Accompanied by: Self / Same As Patient Allergies No Known Allergies Allergy (Verified 05/25/23 14:03) Medication List - Last Reconciled 05/25/23 by René Jones MD amiloride 10 mg (2 x 5 mg) PO DAILY 30 days wctvvwncf-kpsqlfsz-efczzms ala 50-200-25 mg (Biktarvy) 1 tab PO DAILY 30 days blood sugar diagnostic (FreeStyle Lite Strips) As directed-checks 4 X/day blood-glucose meter (FreeStyle Lite Meter kit) As directed blood-glucose sensor (FreeStyle Lyle 3 Sensor device) As directed change every 14 days carvedilol 3.125 mg PO BID doxepin 25 mg PO BEDTIME furosemide 40 mg (2 x 20 mg) PO QAM 30 days gabapentin 800 mg (2 x 400 mg) PO BID glucagon 3 mg/actuation (Baqsimi) 3 mg intranasal ONCE imiquimod 5% 1 appl topical 3XW 14 days insulin glargine (Lantus Solostar U-100 Insulin) 10 units (0.1 mL) subcut QPM insulin lispro (Humalog KwikPen (U-100) Insulin) 4 units (0.04 mL) subcut TID lancets (FreeStyle Lancets) As directed checks 4 X/day paroxetine HCl (Paxil) 10 mg PO QPM peg 3350-electrolytes 236-22.74-6.74 -5.86 gram (Golytely) 240 mL PO Q10M sofosbuvir-velpatasvir 400-100 mg (Epclusa) 1 tab PO DAILY 24 weeks HPI HPI Comments History of Present Illness Details 52 YO M who is seen in consultation for T2DM at the request of PCP. He has end-stage liver disease and cirrhosis Initially diagnosed with T2DM in 3 yrs . Was initially started on treatment with metformin . Current regimen 10 units Lantus Humalog 4 units prior to meals Unfortunately, patient did not bring any log book or sensor the follow-up visit Not Reports low sugars . Family history of T2DM in mother , father Type 2 DM . Has eyes checked yearly, last eye exam 3 mos ago , denies retinopathy. Denies neuropathy,Not sees podiatry. Denies nephropathy,Not on DOLORES/ARB. Has HLD, Not on statin. . Denies CAD. Not Had diabetes education. He was having difficulty obtaining Lyle as well as Lantus insulin and missed several doses. His point of care today's appointment is >400 PFSH Medical History Cirrhosis Diabetes mellitus Hepatitis C HIV (human immunodeficiency virus infection) Venereal warts Surgical History History of esophagogastroduodenoscopy (EGD) Family History Paternal Grandfather Colon cancer Social History Alcohol intake: current Alcohol intake frequency: holidays/special occasions only Tobacco use type: Cigarette Cigarettes Per Day: 3 Advance Directives: No Advance Directives Information Provided: No Physical Exam Vital Signs: Last Vital Signs Pulse 74 05/25/23 14:01 BP 112/82 05/25/23 14:01 BMI result Body Mass Index 19.7 Absence of Cushingoid features. Absence of acromegalic features. Neck exam reveals nl size thyroid about 15 gms. No thyroid nodules palpable. No carotid bruits present. Lungs CTA. Heart S1 S2, Reg R/R. No M/R/ G. Skin exam reveals absence of vitiligo or acanthosis nigricans. Abdominal exam reveals Soft NT/ND with NA BS. No organomegaly present. Neck Other: . Extrem Other: Visual exam of foot performed. No ulcerations or open lesions. No onchomycosis, no callouses.Pulses 2 + distally Sensation intact to monofilament exam. Vibratory sensation sensed is intact with 128 Hz tuning fork Office Meds Humalog U-100 Insulin Performing Provider: René Jones MD Administered by: Tato Paulino RN on 05/25/23 14:19 Dose Route Admin Location Lot Number Expiration Date [facility] [employer] Work[employer] 10 unit subcut [id number] 09/14/24 9522-5487-78 [employer] Comments: patient gave consent for insulin administration. 10 units of humalog given SQ per Dr. Jones's orders. Patient tolerated well. water given. Results AMB Hemoglobin A1c AMB Hemoglobin A1c 9.1 % Last Edit by Duyen Blanchard on 05/25/23 14:22 Results Reviewed Results Reviewed: 05/25/23 14:09 Glucose, Whole Blood Routine 05/25/23 15:22 Glucose, Whole Blood Routine Laboratory Last Values Glucose (Clinic) 425 mg/dL (60-115) H* 05/25/23 15:22 Hgb A1c (Clinic) 9.1 % (4.0-6.0) H 05/25/23 14:21 Assessment & Plan Assessment & Plan (1) Diabetes mellitus: Comment: RECOMMEND Nutritional Supplement related to Cirrhosis: Ensure high protein once a day Code(s): E11.9 - Type 2 diabetes mellitus without complications Plan: This is a 52-year-old male with a history of type 2 diabetes in the setting of end-stage liver disease and cirrhosis being treated with , basal- bolus insulin insulin with poor glycemic control and no known microvascular or macrovascular complications. The plan is reinitiate a Lyle 2 . Because of the end-stage liver disease and cirrhosis would discontinue the Januvia and use insulin to treat. He was given 10 units of Humalog insulin today's appointment. He was also given a sample of Lyle 3 as well as Tresiba insulin until he is able access Lantus. Also I prescribed a freestyle Lite glucometer which could be downloaded. Will also check lipid profile and microalbumin to creatinine ratio. Went over correlation of poor glycemic control to development and progression of complications. Tresiba U 100 samples given to patient lot number [id number] expiration date 01/12/2025 Because point care le about 1 hour after Humalog administration, patient was instructed to go the [facility] for further evaluation and hydration. However he reinstitute with the Lyle had a fingerstick done which showed is point care reduced down to the mid 200 range. He was sent home but told to go to the emergency room shows blood sugar rise over 400 Orders: Orders AMB Insulin Lispro Injection Practice Supplied Today E11.9 - Type 2 diabetes mellitus without complications AMB Hemoglobin A1c Today E11.9 - Type 2 diabetes mellitus without complications Coding Level of Care Code Est Pt Level 4 (40900) Diagnoses Diabetes mellitus E11.9
[2023-05-25 14:01] VITALS: BP 112/82; PULSE 74; BMI 19.7
[2023-05-25 14:13] LABS: Glucose, Whole Blood 442 mg/dL (60-115)
[2023-05-25 15:29] LABS: Glucose, Whole Blood 425 mg/dL (60-115)
[2023-05-28 07:30] LABS: Glucose, Whole Blood 449 mg/dL (60-115)
[2023-05-28 09:09] LABS: Glucose, Whole Blood 284 mg/dL (60-115)
== END 2023-05-25 15:31 | disposition home or self-care (01) ==
PROVIDERS: PCP General Practice; Visit Provider Internal Medicine Endocrinology, Diabetes & Metabolism
DX: E11.9 Type 2 diabetes mellitus without complications (principal)
CPT/HCPCS: 99214

== ENCOUNTER → 2023-05-25 13:55 | Outpatient (BNVA) | payer MEDICAID, SELFPAY | PROVIDERS: Visit Provider Internal Medicine Endocrinology, Diabetes & Metabolism | DX: E11.9 Type 2 diabetes mellitus without complications (principal); K72.10 Chronic hepatic failure without coma; K74.60 Unspecified cirrhosis of liver; B20 Human immunodeficiency virus [HIV] disease; B19.20 Unspecified viral hepatitis C without hepatic coma; Z83.3 Family history of diabetes mellitus; Z79.4 Long term (current) use of insulin; Z79.899 Other long term (current) drug therapy | CPT/HCPCS: 82947 ==

== ENCOUNTER 2023-05-25 15:55 | Emergency (ER) | payer MEDICAID, SELFPAY ==
--- NOTE | 2023-05-25 16:04 | ED_ITS ---
HPI - General Adult General Stated complaint: sugar is high/ sent from urgent care Related Data Home Medications ?Medication ?Instructions ?Recorded ?Confirmed doxepin 25 mg capsule 25 mg PO BEDTIME 01/15/23 07/27/23 Previous Rx's ?Medication ?Instructions ?Recorded gabapentin 400 mg capsule 800 mg (2 x 400 mg) PO BID #120 10/02/22 caps paroxetine HCl 10 mg tablet (Paxil) 10 mg PO QPM #30 tabs 10/02/22 furosemide 20 mg tablet 40 mg (2 x 20 mg) PO QAM 30 days 10/27/22 #60 tabs bictegravir 50 mg-emtricitabine 1 tab PO DAILY 30 days #30 tabs 11/08/22 200 mg-tenofovir alafenam 25 mg tablet (Biktarvy) imiquimod 5 % topical cream packet 1 appl topical 3XW 14 days #12 ea 11/08/22 blood-glucose meter (FreeStyle #1 ea 03/09/23 Lite Meter kit) glucagon 3 mg/actuation nasal 3 mg intranasal ONCE #2 ea 03/09/23 spray (Baqsimi) lancets 28 gauge (FreeStyle #100 ea 03/09/23 Lancets) insulin glargine 100 unit/mL (3 10 unit (0.1 mL) subcut QPM #15 mL 05/15/23 mL) subcutaneous pen (Lantus Solostar U-100 Insulin) carvedilol 3.125 mg tablet 6.25 mg (2 x 3.125 mg) PO BID #60 07/31/23 tabs insulin lispro 100 unit/mL 4 unit (0.04 mL) subcut TID #15 mL 08/06/23 subcutaneous pen atorvastatin 10 mg tablet 10 mg PO DAILY #90 tabs 08/27/23 blood-glucose sensor (FreeStyle #2 kits 09/17/23 Lyle 3 Sensor device) insulin pump cartridge,automated #1 ea 09/30/23 dose,BT with controller subcutaneous (Omnipod 5 G6 Intro Kit (Gen 5) subcutaneous cartridge with controller) blood-glucose sensor (Dexcom G6 #3 ea 10/16/23 Sensor device) insulin lispro 100 unit/mL See Rx Instructions subcut 10/18/23 subcutaneous solution (Humalog .COMPLEX #20 mL U-100 Insulin) blood-glucose transmitter (Dexcom #1 ea 11/05/23 G6 Transmitter device) insulin pump cart,automated,BT #5 ea 11/05/23 (Omnipod 5 G6 Pods (Gen 5) subcutaneous cartridge) blood sugar diagnostic (FreeStyle #100 strips 01/03/24 Lite Strips) Allergies Allergy/AdvReac Type Severity Reaction Status Date / Time No Known Allergies Allergy Verified 11/30/23 14:23 [facility] Past Medical History Medical History Hepatitis C Cirrhosis Venereal warts HIV (human immunodeficiency virus infection) Diabetes mellitus Surgical History History of esophagogastroduodenoscopy (EGD) Family History Family History Paternal Grandfather Colon cancer Social History Social History (Updated 07/31/23 @ 14:11 by Elodia Vera MD) Alcohol intake: current Alcohol intake frequency: holidays/special occasions only Patient Tobacco Use Status: Current everyday Tobacco user Tobacco use type: Cigarette Cigarettes Per Day: 4 Substance Use Type: IV Drugs Course Course Course Narrative: This is an RME: Additional HPI, ROS, PE not included below will be deferred to primary provider. Patient is a 52 year old male with a history of HIV, Hep B, Hep C and diabetes presenting today from endocriology after his blood glucose was found to be in the 400s. Given insulin and reportedly went up per endocrine. Reports intermittent blurred vision. Respiratory rate 16. Well- appearing. Plan: labs, urine Discharge Plan Discharge Clinical Impression: Eloped from emergency department Patient Disposition: Left Without Being Seen Interventions: LWBS Worksheet Last Done: 05/25/23 16:35 Discharge Date/Time: 05/25/23 16:36
== END 2023-05-25 16:36 | disposition left against medical advice (07) ==
LOC: HO.ED 16:32
PROVIDERS: Emergency Provider Emergency Medicine; PCP General Practice
DX: E11.65 Type 2 diabetes mellitus with hyperglycemia (principal); B20 Human immunodeficiency virus [HIV] disease; B19.10 Unspecified viral hepatitis B without hepatic coma; B19.20 Unspecified viral hepatitis C without hepatic coma; K74.60 Unspecified cirrhosis of liver; F17.210 Nicotine dependence, cigarettes, uncomplicated; Z79.899 Other long term (current) drug therapy; Z79.4 Long term (current) use of insulin
CPT/HCPCS: 82947; 83036; 96372; 99212; J1815

== ENCOUNTER 2023-05-31 10:54 | Outpatient (REF) | payer MEDICAID, SELFPAY ==
[2023-05-31 13:07] LABS: Potassium Urine Random 18.6 mmol/L
[2023-05-31 13:11] LABS: Cholesterol 218 mg/dL; HDL Cholesterol 53 mg/dL; LDL Cholesterol Calculated 138 mg/dl; Triglycerides 138 mg/dL
[2023-05-31 13:12] LABS: Creatinine Urine 35.33 mg/dL; Microalbum/Creatinine Ratio Ur 441.5 ug/mg cr
[2023-05-31 13:15] LABS: Anion Gap 7 (12-20); Blood Urea Nitrogen 17 mg/dL (9-16); Calcium 9.3 mg/dL (8.4-10.2); Carbon Dioxide 30 mmol/L (22-29); Chloride 106 mmol/L (96-108); Estimated Glomerular Filt Rate > 60; Glucose Random 102 mg/dL (60-115); Sodium 139 mmol/L (135-145)
== END 2023-05-31 10:55 | disposition home or self-care (01) ==
LOC: HO.LAB 10:54
PROVIDERS: Absent Provider Internal Medicine Endocrinology, Diabetes & Metabolism; PCP General Practice; Visit Provider Internal Medicine
DX: E11.9 Type 2 diabetes mellitus without complications (principal); Z79.899 Other long term (current) drug therapy
CPT/HCPCS: 36415; 80048; 80061; 82043; 84133; 84300

== ENCOUNTER 2023-06-08 13:49 | Outpatient (AMB) | payer MEDICAID, SELFPAY ==
--- NOTE | 2023-06-08 14:39 | A.OFFVIS_ITS ---
Intake Intake Visit Reasons: DM Application Integrator Required: No Accompanied by: Nephew or Niece Allergies No Known Allergies Allergy (Verified 05/25/23 14:03) HPI Comprehensive Diabetes Asmnt Most Recent Diabetes Results: Microalb/Creat Ratio 441.5 ug/mg cr 05/31/23 Cholesterol 218 mg/dL 05/31/23 HDL Cholesterol 53 mg/dL 05/31/23 Triglycerides 138 mg/dL 05/31/23 Creatinine 1.14 mg/dL (0.5-1.4) 05/31/23 Blood Urea Nitrogen 17 mg/dL (9-16) H 05/31/23 Sodium 139 mmol/L (135-145) 05/31/23 Potassium 4.0 mmol/L (3.3-5.1) 05/31/23 Chloride 106 mmol/L (96-108) 05/31/23 Carbon Dioxide 30 mmol/L (22-29) H 05/31/23 Calcium 9.3 mg/dL (8.4-10.2) 05/31/23 AST 77 U/L (5-37) H 04/06/23 ALT 72 U/L (0-40) H 04/06/23 Total Protein 7.4 g/dL (6.5-8.0) 04/06/23 Albumin 2.9 g/dL (3.5-5.0) L 04/06/23 [facility] Medical History Cirrhosis Diabetes mellitus Hepatitis C HIV (human immunodeficiency virus infection) Venereal warts Surgical History History of esophagogastroduodenoscopy (EGD) Family History Paternal Grandfather Colon cancer Social History Alcohol intake: current Alcohol intake frequency: holidays/special occasions only Tobacco use type: Cigarette Cigarettes Per Day: 3 Assessment & Plan Assessment & Plan (1) Diabetes mellitus: Comment: RECOMMEND Nutritional Supplement related to Cirrhosis: Ensure high protein once a day Code(s): E11.9 - Type 2 diabetes mellitus without complications Plan: Personal Continuous Glucose Monitor: Patients CGM information reviewed Reviewed patient's sensor data: Hypoglycemia: ? 1% Hyperglycemia:? 74% Time in Range:? 25% Average glucose for the last 2 weeks? 227 mg/dL Patient's insulin plan reads Lantus 10 units daily, and 4 units of Humalog before meals Patient reports Dr. Jones increased Humalog to 6 units and 8 units before large meals. Cannot find work load or documentation of this in visit notes Patient reports he took 10 units before meal of eggs, new 2 pieces of toast and small amount of hash browns, at visit today glucose was 64 mg/dL. Reviewed with patient how to treat hypoglycemia, patient given 4 oz of tea bibiana at visit, patient's glucose was 117 on Lyle 3 after drinking soda. Patient is interested in obtaining Omnipod 5. Reviewed with patient how to estimate carbohydrates at meals, patient given carb list of [place] foods and healthy plate handout Ask patient to fill out food logs for 2 weeks prior to next appointment with estimate of carbohydrates per meal and portion sizes. At next visit will review with patient how to calculate mealtime doses using insulin to carb ratio and sensitivity factor Patient also requested prescription for Glucerna, message sent to Dr. Jones. Reviewed how to interpret trend arrows Reminded patient that to check finger sticks if symptoms do not match sensor reading. Discussed lag time between finger stick and sensor data.? Patient able to insert sensor independently at home without issue.? Patient Instructions: Follow-up with Diabetes Education nurse in 1 month Coding Level of Care Code Est Pt Level 1 (73340) Diagnoses Diabetes mellitus E11.9
== END 2023-06-08 14:45 | disposition home or self-care (01) ==
PROVIDERS: PCP General Practice; Visit Provider Registered Nurse Diabetes Educator
DX: E11.9 Type 2 diabetes mellitus without complications (principal)

== ENCOUNTER → 2023-06-08 13:49 | Outpatient (BNVA) | payer MEDICAID, SELFPAY | PROVIDERS: PCP General Practice; Visit Provider Registered Nurse Diabetes Educator | DX: E11.9 Type 2 diabetes mellitus without complications (principal) | CPT/HCPCS: 99211 ==

== ENCOUNTER 2023-06-14 10:00 | Outpatient (AMB) | payer MEDICAID, SELFPAY ==
[2023-06-14 10:28] VITALS: BMI 19.5
--- NOTE | 2023-06-14 10:28 | A.OFFVIS_ITS ---
Intake VS Expanded 06/14/23 10:28 06/20/23 08:41 Height 5 ft 1 in 5 ft 1 in Weight 103 lb 2.821 oz 103 lb BMI 19.5 19.5 Intake Visit Reasons: DM Allergies No Known Allergies Allergy (Verified 05/25/23 14:03) HPI Nutrition Presentation Details Pt presents for MNT for T2DM .? Pt was referred by Dr. Jones, manager portable Pt has hx of Hep C , cirrhosis and is currently on Lantus once/day? and? Humalog with meals. Pt is utilizing trevor 3 gluc sensor ?with variable glucose level, ranging from 67'-300s. Pt admits to inconsistent carbohydrate intake depending on appetite. Pt reports appetite fluctuates. He is concerned about his weight, reports his usual weight is 110-115 lbs however he is maintaining at 103 mg/dl. Pt reports his diet varies: Breakfast: bagel with ham/cheese or egg/cheese , coffee with diet sugar and cream L: skips or fast food meals D: rice/beans, chicken > 3 cups of rice, 1 cup beans, 4 oz chicken, water or glass of milk snack glass of milk and pastry (strawberry short cake) Recent A1c at 9.1 % on 05/2023, and has rx for glucose sensor. PCP Dr. Flakita Dallas from [facility] Pt requesting ensure shakes , he reports shakes were provided in the past related to cirrhosis. EHY-Ivsrqzy-Qj.Jeor Equation Height 5 ft 1 in Weight 103 lb Resting Metabolic Rate 1189.19 Calculated Activity Level Mild Activity Calories Needed to Maintain Weight 1635.14 Most Recent Diabetes Results: Microalb/Creat Ratio 441.5 ug/mg cr 05/31/23 Cholesterol 218 mg/dL 05/31/23 HDL Cholesterol 53 mg/dL 05/31/23 Triglycerides 138 mg/dL 05/31/23 Creatinine 1.14 mg/dL (0.5-1.4) 05/31/23 Blood Urea Nitrogen 17 mg/dL (9-16) H 05/31/23 Sodium 139 mmol/L (135-145) 05/31/23 Potassium 4.0 mmol/L (3.3-5.1) 05/31/23 Chloride 106 mmol/L (96-108) 05/31/23 Carbon Dioxide 30 mmol/L (22-29) H 05/31/23 Calcium 9.3 mg/dL (8.4-10.2) 05/31/23 AST 77 U/L (5-37) H 04/06/23 ALT 72 U/L (0-40) H 04/06/23 Total Protein 7.4 g/dL (6.5-8.0) 04/06/23 Albumin 2.9 g/dL (3.5-5.0) L 04/06/23 [facility] Medical History Cirrhosis Diabetes mellitus Hepatitis C HIV (human immunodeficiency virus infection) Venereal warts Surgical History History of esophagogastroduodenoscopy (EGD) Family History Paternal Grandfather Colon cancer Social History Alcohol intake: current Alcohol intake frequency: holidays/special occasions only Tobacco use type: Cigarette Cigarettes Per Day: 3 Assessment & Plan Assessment & Plan (1) Diabetes mellitus: Comment: PCP: RECOMMEND Nutritional Supplement related to Cirrhosis: Ensure high protein once a day , Code(s): E11.9 - Type 2 diabetes mellitus without complications Plan: HPI Nutrition Presentation ? ? ? Details Pt presents for MNT for T2DM .? Pt was referred by Dr. Jones, manager portable Pt has hx of Hep C , cirrhosis and is currently on Lantus once/day? and? Humalog with meals? and has rx for glucose sensor Pt reports doing well, having difficulties? with trevor 3 gluc sensor (Pt was referred to DM educator who provided assistance at the end of the visit) Pt reports? eating well.? Pt verbalizes role of healthy plate method and role of lean protein foods for glucose control. Pt reports he is gradually gaining weight (from 95 lbs in 2021 and has maintained wt of 103 lbs since 02/2023. ? Food frequency fruits:0-1/d vegetables:? 2 serving/d dairy: 1-2 /d protein : poultry/beef/fish/eggs/ starches: starchy veg/rice/pasta/breads, choosing complex/simple carbs combination ETH 1-2 yr smoking: denies? ? XQZ-Zsivadz-OaStephaneor Equation ? ? ? Height 5 ft 1 in ? ? Weight 103 lb ? ? Resting Metabolic Rate 1189.19 ? ? Calculated Activity Level Mild Activity ? ? Calories Needed to Maintain Weight 1635.14 ? Diagnosis ? ? ? Nutrition problem #1 food nutri know defi ? ? As related to (etiology) #1 diagnosis ? ? As evidenced by (sign/symptom) #1 knowledge deficit of diet ? Most Recent Diabetes Results: ?? ? Creatinine 0.92 mg/dL (0.5-1.4) 04/06/23 ?? ? Blood Urea Nitrogen 14 mg/dL (9-16) 04/06/23 ?? ? Sodium 139 mmol/L (135-145) 04/06/23 ?? ? Potassium 4.1 mmol/L (3.3-5.1) 04/06/23 ?? ? Chloride 109 mmol/L (96-108)? H 04/06/23 ?? ? Carbon Dioxide 26 mmol/L (22-29) 04/06/23 ?? ? Calcium 9.2 mg/dL (8.4-10.2) 04/06/23 ?? ? AST 77 U/L (5-37)? H 04/06/23 ?? ? ALT 72 U/L (0-40)? H 04/06/23 ?? ? Total Protein 7.4 g/dL (6.5-8.0) 04/06/23 ?? ? Albumin 2.9 g/dL (3.5-5.0)? L 04/06/23 ? Est kcal needs as per MSJ:? 47 kg?(40% carb, 30% protein/fat) Est fluid needs as per 25-30 ml/d:???1600? Est prot per day as per 1 g/kg bw:???47?Recommend?fiber?intake :? 8-10 g per day and gradually increase to 25-28 g per day for women and 35-38 g for men or as tolerated Recommend?sodium?intake per day? : ? ? less than 2000 mg Educated patient on: (?R?= reviewed??V?= verbalizes understanding ??N/R?= needs review ??N/A?=? not applicable * Food sources of carbohydrate, adequate serving sizes and its role in various health conditions:? V? * protein sources of foods : R * Differences between complex carbohydrates a simple carbohydrates, role of fiber in diet:? V? * Differences between types of fats and role in diet (mono on saturated fat fatty acids, saturated fatty acids, trans fats):??V? * Food sources of sodium in salt and healthy modifications for heart health in kidney health:??? V * Vitamins and minerals: ???V * Healthy plate method concept:??R? V * Physical activity:? Benefits a precaution:??R? V? * Hypoglycemia protocol (rule of 15):??R? V? * Dietary prevention of Hyperglycemia:??R? V? Patient Instructions: Count grams of carbohydrates at dinner time, become familiar with carbohydrate counting. Choose high fiber sources of foods (beans, whole wheat breads, cereals, non starchy vegetables ) HAve a high protein ensure once a day instead of skipping meals Keep hydrated Coding Level of Care Code Nutr Indiv Subseq (53821) Diagnoses Diabetes mellitus E11.9 Time Spent (min) 30
[2023-06-20 08:41] VITALS: BMI 19.5
== END 2023-06-14 11:17 | disposition home or self-care (01) ==
PROVIDERS: PCP General Practice; Visit Provider Dietitian, Registered
DX: E11.9 Type 2 diabetes mellitus without complications (principal)

== ENCOUNTER → 2023-06-14 10:00 | Outpatient (BNVA) | payer MEDICAID, SELFPAY | PROVIDERS: PCP General Practice; Visit Provider Dietitian, Registered | DX: E11.9 Type 2 diabetes mellitus without complications (principal); Z79.4 Long term (current) use of insulin; Z71.3 Dietary counseling and surveillance | CPT/HCPCS: 97803 ==

== ENCOUNTER 2023-07-11 10:54 | Outpatient (REF) | payer MEDICAID, SELFPAY ==
[2023-07-11 11:10] LABS: MANUAL DIFF FLAG NO
[2023-07-11 11:42] LABS: Basophils Percent Auto 0.3 % (0-2); Eosinophils Absolute Auto 0.1 X10*3/uL (0.0-0.4); Eosinophils Percent Auto 1.6 % (0-4); Hematocrit 38.4 % (42.0-52.0); Hemoglobin 13.7 g/dl (14.0-18.0); Imm Gran Abs Auto 0.01 X10*3/uL (0.00-0.03); Imm Gran Pct Auto 0.3 % (0.0-0.4); Lymphocytes Absolute Auto 0.7 X10*3/uL (1.2-4.9); Lymphocytes Percent Auto 23.1 % (20-40); Mean Corpuscular HGB Conc 35.7 g/dl (31.0-36.0); Mean Corpuscular Hemoglobin 33.7 pg (27.0-33.0); Mean Corpuscular Volume 94.6 fL (80.0-98.0); Mean Platelet Volume 10.6 fL (9.4-12.4); Monocytes Absolute Auto 0.3 X10*3/uL (0.1-1.2); Monocytes Percent Auto 10.3 % (2-11); Neutrophils Percent Auto 64.4 % (45-73); Red Blood Count 4.06 X10*6/uL (4.60-5.80); Red Cell Distribution Width 14.5 % (11.0-16.0); White Blood Count 3.1 X10*3/uL (4.8-10.8)
[2023-07-11 11:44] LABS: Platelet Count 82 X10*3/uL (160-400)
[2023-07-11 12:25] LABS: Alanine Aminotransferase 55 U/L (0-40); Albumin Level 2.9 g/dL (3.5-5.0); Alkaline Phosphatase 122 U/L (39-117); Anion Gap 8 (12-20); Aspartate Amino Transferase 51 U/L (5-37); Bilirubin Total 1.3 mg/dL (0.0-1.0); Blood Urea Nitrogen 15 mg/dL (9-16); Calcium 8.4 mg/dL (8.4-10.2); Carbon Dioxide 28 mmol/L (22-29); Chloride 105 mmol/L (96-108); Estimated Glomerular Filt Rate > 60; Glucose Random 252 mg/dL (60-115); Potassium 3.8 mmol/L (3.3-5.1); Sodium 137 mmol/L (135-145); Total Protein 6.7 g/dL (6.5-8.0)
[2023-07-12 11:59] LABS: Absolute CD3 Count 498 cells/uL (840-3060); Absolute CD4 Count 264 cells/uL (490-1740); Absolute CD8 Count 228 cells/uL (180-1170); Absolute Lymphocytes 819 cells/uL (850-3900); CD4 CD8 Ratio 1.16 (0.86-5.00); Percent CD3 Cells 61 % (57-85); Percent CD4 Cells 32 % (30-61); Percent CD8 Cells 28 % (12-42)
[2023-07-12 15:43] LABS: HIV RNA PCR Qn Copies NOT DETECTED copies/mL (NOT DETECTED); HIV RNA PCR Qn Log Copies NOT DETECTED (NOT DETECTED)
== END 2023-07-11 10:55 | disposition home or self-care (01) ==
LOC: HO.LAB 10:54
PROVIDERS: PCP General Practice; Visit Provider Internal Medicine
DX: Z21 Asymptomatic human immunodeficiency virus [HIV] infection status (principal)
CPT/HCPCS: 36415; 80053; 85025; 86359; 86360; 87536

== ENCOUNTER 2023-07-31 11:02 | Day surgery (SDC) | payer MEDICAID, SELFPAY ==
[2023-07-27 12:37] VITALS: BMI 19.6
--- NOTE | 2023-07-30 10:38 | HO.ANESPROP2 ---
Documented by User: iSs Ramos NP 07/30/23 10:43 HPI - Anesthesia Eval Consult details Narrative: 52yo M for Upper Endoscopy and Colonoscopy HCV with cirrhosis - no ascites / para's noted in record. [facility] Active Problems Active Problems: All Active Problems (Updated 06/20/23 @ 08:45 by Lacey Mello, RD, LDN) Liver mass (Acute) Hepatitis B core antibody positive (Acute) senior living current use of diuretic (Acute) Colon cancer screening (Acute) HIV (human immunodeficiency virus infection) (Acute) Hepatitis C (Acute) Cirrhosis (Acute) Venereal warts (Acute) Diabetes mellitus (Acute) Past Medical History Medical History Hepatitis C Cirrhosis Venereal warts HIV (human immunodeficiency virus infection) Diabetes mellitus Family History Family History Paternal Grandfather Colon cancer Surgical History Surgical History History of esophagogastroduodenoscopy (EGD) Social History Social History (Updated 07/31/23 @ 14:11 by Elodia Vera MD) Alcohol intake: current Alcohol intake frequency: holidays/special occasions only Patient Tobacco Use Status: Current everyday Tobacco user Tobacco use type: Cigarette Cigarettes Per Day: 4 Substance Use Type: IV Drugs Meds Allergies Allergy/AdvReac Type Severity Reaction Status Date / Time No Known Allergies Allergy Verified 07/31/23 11:56 Home Medications Medication Instructions Recorded Confirmed Last Taken Type doxepin 25 mg capsule 25 mg PO BEDTIME 01/15/23 07/27/23 07/29/23 History Exam Exam Date and Time: July 30, 2023 1038 Height,Weight and Vital Signs: Height 5 ft 1 in Weight 47.174 kg Pertinent Lab Results Pertinent Lab Results: Laboratory Tests 07/11/23 11:09 Sodium 137 Potassium 3.8 Chloride 105 Carbon Dioxide 28 Anion Gap 8 L BUN 15 Creatinine 1.03 Calcium 8.4 D Total Bilirubin 1.3 H AST 51 H ALT 55 H Alkaline Phosphatase 122 H Total Protein 6.7 Albumin 2.9 L Total Lymphocytes 819 L % CD3 Cells 61 Absolute CD3 Count 498 L % CD4 Cells 32 Absolute CD4 Count 264 L Narrative Narrative: MR abdomen wo/w con 2022 IMPRESSION: * Cirrhotic liver, varices and splenomegaly. * No imaging evidence of hepatocellular carcinoma. CT abdomen pelvis w IV con 2022 IMPRESSION: 1. Cirrhotic-appearing liver with a 1.8 cm mass adjacent to the gallbladder. This is consistent with malignancy although not felt to be classic for hepatocellular carcinoma. Percutaneous biopsy could always be performed if necessary. 2. Splenomegaly. 3. Bilateral Bosniak class I renal cysts which need no additional follow-up. 4. Other incidental findings as described above. Assessment and Plan Assessment Anesthesia Assessment: Chart Reviewed Documented by User: Elodia Vera MD 07/31/23 14:25 HPI - Anesthesia Eval Consult details Narrative: 52yo M for Upper Endoscopy and Colonoscopy HCV with cirrhosis - Patient has had abdominal paracentesis in the past while in [place]. H/o drug use in the past. Stopped 1 year ago after he developed ?cancer. Unclear. 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 Needed upper endoscopy Past Medical History Medical History Hepatitis C Cirrhosis Venereal warts HIV (human immunodeficiency virus infection) Diabetes mellitus Family History Family History Paternal Grandfather Colon cancer Family history of problems with anesthesia: No Surgical History Surgical History History of esophagogastroduodenoscopy (EGD) History of Problems with Anesthesia: No Social History Social History (Updated 07/31/23 @ 14:11 by Elodia Vera MD) Alcohol intake: current Alcohol intake frequency: holidays/special occasions only Patient Tobacco Use Status: Current everyday Tobacco user Tobacco use type: Cigarette Cigarettes Per Day: 4 Substance Use Type: IV Drugs Meds Allergies Allergy/AdvReac Type Severity Reaction Status Date / Time No Known Allergies Allergy Verified 07/31/23 11:56 Home Medications Medication Instructions Recorded Confirmed Last Taken Type doxepin 25 mg capsule 25 mg PO BEDTIME 01/15/23 07/27/23 07/29/23 History Exam Height,Weight and Vital Signs: Height 5 ft 1 in Weight 47.174 kg Vital Signs Temp Pulse Resp BP Pulse Ox O2 Del Method 07/31/23 11:52 97.4 F 78 16 146/83 H 99 Room Air Pertinent Lab Results Pertinent Lab Results: Laboratory Tests 07/11/23 11:09 Sodium 137 Potassium 3.8 Chloride 105 Carbon Dioxide 28 Anion Gap 8 L BUN 15 Creatinine 1.03 Calcium 8.4 D Total Bilirubin 1.3 H AST 51 H ALT 55 H Alkaline Phosphatase 122 H Total Protein 6.7 Albumin 2.9 L Total Lymphocytes 819 L % CD3 Cells 61 Absolute CD3 Count 498 L % CD4 Cells 32 Absolute CD4 Count 264 L Lab Results 07/31/23 07/31/23 Range/Units 12:08 13:35 WBC 3.6 L (4.8-10.8) X10*3/uL RBC 4.43 L (4.60-5.80) X10*6/uL Hgb 14.9 (14.0-18.0) g/dl Hct 41.2 L (42.0-52.0) % MCV 93.0 (80.0-98.0) fL MCH 33.6 H (27.0-33.0) pg MCHC 36.2 H (31.0-36.0) g/dl RDW 13.8 (11.0-16.0) % Plt Count 69 L (160-400) X10*3/uL MPV 10.9 (9.4-12.4) fL Absolute Nucleated RBC 0.000 (0.0-0.012) X10*3/uL Nucleated RBC % (auto) 0.0 (0.0-0.2) /100WBC PT 12.8 (11.1-13.3) SEC INR 1.1 (0.9-1.1) POC Glucose 137 H (60-115) mg/dL Airway Mallampati Class: II TM Dist: >3cm Neck ROM: Full Loose/Missing/Broken Teeth: Yes (Poor dentition. Broken front teeth, many missing) Heart: RRR Lungs: CTAB Assessment and Plan Assessment Anesthesia Assessment: Anesthesia Plan Discussed Final Anesthetic Review Family History of Problems with Anesthesia: No History of Problems with Anesthesia: No NPO: Yes ASA Class: III Final Preanesthetic Review: No Changes in Pt Med Stat, Meds/Allgs Chart Reviewed, Consent Obtained/Reviewed and Anes Risks/Benef Reviewed Patient Risk: Intermediate Procedure Risk: Intermediate Assessment/Block/Sedation in SS: Assess/Block/Sedation-SS Anesthetic Plan Anesthetic Plan: MAC: Disposition: Standard PACU
[2023-07-31 11:43] VITALS: BMI 19.3
[2023-07-31 11:52] VITALS: BP 146/83; PULSE 78; RESP 16; TEMP 36.3; O2SAT 99
[2023-07-31] MEDS: Lactated Ringers 1,000 ML 100 ML IVCONT (12:07)
[2023-07-31 12:12] LABS: Glucose, Whole Blood 137 mg/dL (60-115)
[2023-07-31] MEDS: Sodium Phosphate,Mono-Dibasic 133 ML ENEMA PR (12:40)
--- NOTE | 2023-07-31 13:10 | PC.NURSE ---
Fleet enema administered per Dr Weaver as prep results were not clear. Pt self administered with improved/clear results.
--- NOTE | 2023-07-31 13:49 | P.OP_ITS ---
Operative Note Operative Note Date of Service: 07/31/23 Narrative: Procedure:?Esophagogastroduodenoscopy and colonoscopy Endoscopist:?Maame Weaver MD Indication:?Cirrhosis, anemia Anesthesia Provider:?Dr Mario Alberto Ponce Anesthesia Type:?MAC Instrument:?Olympus GIF-H190, PCF-H190L EGD Procedure:?? The procedure, indications, preparation and potential complications were reviewed with the patient who indicated understanding and gave written informed consent to proceed. A physical exam was performed. The endoscope was introduced through the mouth, and advanced to the second part of duodenum. The mucosa was carefully examined on slow withdrawal of the endoscope. There were no immediate complications. Patient tolerated the pro cedure well. EGD Findings:? * Esophagus:? Normal mucosa noted in the entire esophagus. 3 large columns of varices without high risk stigmata were noted in the lower esophagus extending from GEJ at 38 to 30 cm. * Stomach:? Diffuse congestion and erythema in mosaic pattern consistent with portal hypertensive gastropathy was noted in the whole stomach. * Duodenum:? Congestion and edema was noted in the duodenum to the extent examined. Cold forceps biopsies were taken from the duodenum bulb and 2nd portion of duodenum to rule out celiac sprue. Additional intervention: The scope was removed and a HeartThis 7-shooter kit was installed on the gastroscope in the usual fashion. The scope was then reintroduced through the mouth and 3 bands were deployed in a spiral fashion from 37 cm to 33 cm. Complete collapse of esophageal varices was noted at the end of banding. Colonoscopy Procedure:? The patient was then turned for the colonoscopy. A digital rectal exam was performed which was normal.? A distal attachment cap was affixed to the tip of the scope and the colonoscope was then inserted through the anus and advanced through the colon to the cecum at 70 cm and terminal ileum. Appendiceal orifice and ileocecal valve were identified. Mucosa was carefully examined under high definition white light as the instrument was slowly withdrawn in a retrograde panoramic fashion. Retroflexion was performed in rectum. The procedure was not difficult. There were no immediate obvious complications. The quality of the prep was BBPS: 3+2+2 = adequate Withdrawal time: 12 minutes Limitations: No limitation. Findings: Mucosa: Normal mucosa to cecum and terminal ileum. Protruding lesions: * 2 sessile polyp of size 2-4 mm were noted in the transverse colon. Cold snare polypectomy and cold forceps polypectomy was performed. The polyps were completely removed and retrieved. * 1 sessile polyp of size 3 mm was noted in the sigmoid colon. Cold snare polypectomy was performed. The polyp was completely removed and retrieved. * Medium internal hemorrhoids without stigmata of recent bleeding. Impression: 1. Esophageal varices (banding) 2. Portal hypertensive gastropathy 3. Portal hypertensive duodenopathy 4. Normal colon and terminal ileum mucosa 5. Total of 3 polyps removed 6. Medium internal hemorrhoids Recommendations:?? * Carvedilol dose will be increased to 6.25mg BID * Await pathology results. * Colonoscopy in 3-5 years depending on the path * Will review liver function including MELD-Na after completing HCV tx to determine transplant candidacy
[2023-07-31 13:58] LABS: Hematocrit 41.2 % (42.0-52.0); Hemoglobin 14.9 g/dl (14.0-18.0); Mean Corpuscular HGB Conc 36.2 g/dl (31.0-36.0); Mean Corpuscular Hemoglobin 33.6 pg (27.0-33.0); Mean Platelet Volume 10.9 fL (9.4-12.4); Red Blood Count 4.43 X10*6/uL (4.60-5.80); Red Cell Distribution Width 13.8 % (11.0-16.0); White Blood Count 3.6 X10*3/uL (4.8-10.8)
[2023-07-31 14:00] LABS: Platelet Count 69 X10*3/uL (160-400)
[2023-07-31 14:12] LABS: INTERNATIONAL NORM RATIO 1.1 (0.9-1.1); Prothrombin Time 12.8 SEC (11.1-13.3)
[2023-07-31 15:38] VITALS: BP 109/72; PULSE 93; RESP 17; TEMP 36.1; O2SAT 99
[2023-07-31 15:53] VITALS: BP 137/95; PULSE 80; RESP 16; O2SAT 100
[2023-07-31 16:08] VITALS: BP 149/89; PULSE 76; RESP 14; TEMP 36.4; O2SAT 100
--- NOTE | 2023-07-31 16:30 | PC.NURSE ---
Addendum entered by Edmund Bentley 07/31/23 16:49: Dr. Weaver at bedside cleared patient to be discharged after receiving magic mouthwash. Original Note: Patient has small amount of rectal bleeding and discomfort in throat. Dr. Weaver made aware. Will order magic mouthwash and to see patient again prior to his discharge
[2023-07-31] MEDS: Mag&Al/Sim/Diphenhyd/Lidocaine 10 ML ORAL.SUSP PO (16:42)
== END 2023-07-31 16:49 ==
LOC: HO.SSS 11:03
PROVIDERS: Nurse Practitioner; PCP General Practice; Visit Provider Internal Medicine
PROC: (CPT 45385; principal; 2023-07-31 13:10)
DX: K74.60 Unspecified cirrhosis of liver (principal); D64.9 Anemia, unspecified; R16.1 Splenomegaly, not elsewhere classified; E11.9 Type 2 diabetes mellitus without complications; Z86.010 Personal history of colon polyps; D12.3 Benign neoplasm of transverse colon; K63.5 Polyp of colon; K64.8 Other hemorrhoids; K76.6 Portal hypertension; K31.89 Other diseases of stomach and duodenum; I85.00 Esophageal varices without bleeding; A63.0 Anogenital (venereal) warts; B20 Human immunodeficiency virus [HIV] disease; B18.2 Chronic viral hepatitis C; Z79.899 Other long term (current) drug therapy; Z79.4 Long term (current) use of insulin; F17.210 Nicotine dependence, cigarettes, uncomplicated
CPT/HCPCS: 45385; 45380; 43244; 43239; 36415; 82947; 85027; 85610; 88305

== ENCOUNTER → 2023-07-31 11:02 | Outpatient (BNV) | payer MEDICAID, SELFPAY | PROVIDERS: PCP General Practice; Visit Provider Internal Medicine | DX: K74.60 Unspecified cirrhosis of liver (principal); I85.00 Esophageal varices without bleeding; D64.9 Anemia, unspecified; K64.8 Other hemorrhoids; D12.3 Benign neoplasm of transverse colon; K63.5 Polyp of colon | CPT/HCPCS: 43239; 43244; 45380; 45385 ==

== ENCOUNTER 2023-08-20 08:51 | Outpatient (AMB) | payer MEDICAID, SELFPAY ==
[2023-08-20 09:12] VITALS: BMI 20.1
--- NOTE | 2023-08-20 09:12 | A.OFFVIS_ITS ---
Intake VS Expanded 08/20/23 09:12 Height 5 ft 1 in Weight 106 lb 4.205 oz BMI 20.1 Intake Visit Reasons: T2DM Allergies No Known Allergies Allergy (Verified 07/31/23 11:56) HPI Nutrition Presentation Details Pt presents for MNT follow up for T2DM. Patient has cirrhosis Pt reports doing well, no questions or concerns expressed at this time. Reports not on nutritional supplements due to insurance not covering them. P atient reports currently having good appetite, sometimes has increased appetite particularly for sweets Pt reports his blood glucose is gradually reducing from 300 to 200 range . Pt reports he has episodes of increasing on foods high in sugar d/t to increased appetite for sweets Pt reports including 3-4 serving of vegetables/day and choosing high fiber foods (oatmeal, wheat bread, beans ) He reports including fish 2 x/wk week, likes to fish Dairy: Greater than 4 servings a day(cheese, milk, ice cream) denies constipation, denies diarrhea Physical activity: daily life activities Alcohol intake: 1-2 servings a week KXK-Fpaohoz-To.Jeor Equation Height 5 ft 1 in Weight 106 lb Resting Metabolic Rate 1202.78 Calculated Activity Level Sedentary Calories Needed to Maintain Weight 1443.34 Diagnosis Nutrition problem #1 other (excessive consumption of high sugar/high salt intake > 15 g sugar/day , >50 mg sodium per snack) As related to (etiology) #1 diagnosis (T2DM, cirrhosis) As evidenced by (sign/symptom) #1 food recall Most Recent Diabetes Results: Creatinine 1.03 mg/dL (0.5-1.4) 07/11/23 Blood Urea Nitrogen 15 mg/dL (9-16) 07/11/23 Sodium 137 mmol/L (135-145) 07/11/23 Potassium 3.8 mmol/L (3.3-5.1) 07/11/23 Chloride 105 mmol/L (96-108) 07/11/23 Carbon Dioxide 28 mmol/L (22-29) 07/11/23 Calcium 8.4 mg/dL (8.4-10.2) 07/11/23 AST 51 U/L (5-37) H 07/11/23 ALT 55 U/L (0-40) H 07/11/23 Total Protein 6.7 g/dL (6.5-8.0) 07/11/23 Albumin 2.9 g/dL (3.5-5.0) L 07/11/23 [facility] Medical History Hepatitis C Cirrhosis Venereal warts HIV (human immunodeficiency virus infection) Diabetes mellitus Surgical History History of esophagogastroduodenoscopy (EGD) Family History Paternal Grandfather Colon cancer Social History (Updated 07/31/23 @ 14:11 by Elodia Vera MD) Alcohol intake: current Alcohol intake frequency: holidays/special occasions only Patient Tobacco Use Status: Current everyday Tobacco user Tobacco use type: Cigarette Cigarettes Per Day: 4 Substance Use Type: IV Drugs Assessment & Plan Assessment & Plan (1) T2DM (type 2 diabetes mellitus): Code(s): E11.9 - Type 2 diabetes mellitus without complications Plan: wt: 48 kg Est kcal needs as per MSJ: 1500 (40% carb, 30% protein/fat) Est fluid needs as per 25-30 ml/d: 1200- 1400 Est prot per day as per 1 g/kg bw: 48g Recommend fiber intake : 8-10 g per day and gradually increase to 25-28 g per day for women and 35-38 g for men or as tolerated Recommend sodium intake per day : less than 2000 mg Educated patient on: ( R = reviewed V = verbalizes understanding N/R = needs review N/A = not applicable * Food sources of carbohydrate, adequate serving sizes and its role in various health conditions: R , V * Differences between complex carbohydrates a simple carbohydrates, role of fiber in diet: R ,V * Differences between types of fats and role in diet (mono on saturated fat fatty acids, saturated fatty acids, trans fats): R V * Food sources of sodium in salt and healthy modifications for heart health in kidney health: R V * Vitamins and minerals: R V * Healthy plate method concept: R V * Physical activity: Benefits a precaution: R V * Hypoglycemia protocol (rule of 15): R V * Dietary prevention of Hyperglycemia: R V Patient Instructions: Choose low sodium options ( low sodium cheese, crackers, cook with less sodium) see list of ideas Choose a fruit in place of pastries twice a day to reduce on salt /sodium /sugar and increase fiber Choose yogurt in place of ice cream Choose lean protein foods : eggs, poultry, fish, lean beef, legumes , quinoa, oatmeal monitor your blood sugar Coding Level of Care Code Nutr Indiv Subseq (51835) Diagnoses T2DM (type 2 diabetes mellitus) E11.9 Time Spent (min) 20
== END 2023-08-20 09:33 | disposition home or self-care (01) ==
PROVIDERS: PCP General Practice; Visit Provider Dietitian, Registered
DX: E11.9 Type 2 diabetes mellitus without complications (principal)

== ENCOUNTER → 2023-08-20 08:51 | Outpatient (BNVA) | payer MEDICAID, SELFPAY | PROVIDERS: PCP General Practice; Visit Provider Dietitian, Registered | DX: E11.9 Type 2 diabetes mellitus without complications (principal); Z71.3 Dietary counseling and surveillance | CPT/HCPCS: 97803 ==

== ENCOUNTER 2023-08-22 11:03 | Outpatient (AMB) | payer MEDICAID, SELFPAY ==
--- NOTE | 2023-08-22 11:52 | A.OFFVIS_ITS ---
Intake Intake Visit Reasons: DM Administrative Assistant Coordinator Required: No Accompanied by: Self / Same As Patient Allergies No Known Allergies Allergy (Verified 07/31/23 11:56) HPI Comprehensive Diabetes Asmnt Most Recent Diabetes Results: Microalb/Creat Ratio 441.5 ug/mg cr 05/31/23 Cholesterol 218 mg/dL 05/31/23 HDL Cholesterol 53 mg/dL 05/31/23 Triglycerides 138 mg/dL 05/31/23 Creatinine 1.03 mg/dL (0.5-1.4) 07/11/23 Blood Urea Nitrogen 15 mg/dL (9-16) 07/11/23 Sodium 137 mmol/L (135-145) 07/11/23 Potassium 3.8 mmol/L (3.3-5.1) 07/11/23 Chloride 105 mmol/L (96-108) 07/11/23 Carbon Dioxide 28 mmol/L (22-29) 07/11/23 Calcium 8.4 mg/dL (8.4-10.2) 07/11/23 AST 51 U/L (5-37) H 07/11/23 ALT 55 U/L (0-40) H 07/11/23 Total Protein 6.7 g/dL (6.5-8.0) 07/11/23 Albumin 2.9 g/dL (3.5-5.0) L 07/11/23 [facility] Medical History Hepatitis C Cirrhosis Venereal warts HIV (human immunodeficiency virus infection) Diabetes mellitus Surgical History History of esophagogastroduodenoscopy (EGD) Family History Paternal Grandfather Colon cancer Social History (Updated 07/31/23 @ 14:11 by Elodia Vera MD) Alcohol intake: current Alcohol intake frequency: holidays/special occasions only Patient Tobacco Use Status: Current everyday Tobacco user Tobacco use type: Cigarette Cigarettes Per Day: 4 Substance Use Type: IV Drugs Assessment & Plan Assessment & Plan (1) Diabetes mellitus: Comment: PCP: RECOMMEND Nutritional Supplement related to Cirrhosis: Ensure high protein once a day , Code(s): E11.9 - Type 2 diabetes mellitus without complications Plan: Pump Assessment: Type of DM: type 2 Current Insulin Rx: MDI Patient takes insulin as prescribed: yes Patient? checks BG Lyle 3 sensor Downloaded meter today? yes Patient? reports glycemic control as: fair Most recent Hgb A1C: 9.1%, 05/25/2023 Frequency of low BG: once or twice a week Low BG treatment: glucose tabs Frequency of high BG: daily Does patient check Ketones? no Has pt been on a pump in the past? no Reviewed insulin pump basics today with Patient. Explained pros and cons of insulin pumps. Showed pt various pumps, infusion sets, and cgms currently available. Reviewed need to wear pump 24/ and need to change infusion set every 3 days. Also stressed importance of frequent BG checks, 4x daily minimum or use pump that is integrated with CGM.? patient's total daily dose estimate of insulin 25 units insulin to carb ratio to calculated to 1-18, however patient would prefer 1-15 correction factor calculated to 1-60 patient will corrects to 120 mg/dL downloaded bolus calc ling on patient's phone reviewed patient how to use ling to calculate correction and mealtime insulin doses patient is interested in Omnipod 5 integrated with Dexcom G6 Patient demonstrated motivation for continued insulin pump education and understands the need to complete education prior to starting insulin pump for best outcome. Will follow up for continued education. Next visit will include review of Advanced Carb Counting. Coding Level of Care Code Est Pt Level 1 (73598) Diagnoses Diabetes mellitus E11.9
== END 2023-08-22 11:54 | disposition home or self-care (01) ==
PROVIDERS: PCP General Practice; Visit Provider Registered Nurse Diabetes Educator
DX: E11.9 Type 2 diabetes mellitus without complications (principal)

== ENCOUNTER → 2023-08-22 11:03 | Outpatient (BNVA) | payer MEDICAID, SELFPAY | PROVIDERS: PCP General Practice; Visit Provider Registered Nurse Diabetes Educator | DX: E11.9 Type 2 diabetes mellitus without complications (principal) | CPT/HCPCS: 99211 ==

== ENCOUNTER 2023-09-25 07:57 | Outpatient (REF) | payer MEDICAID, SELFPAY ==
[2023-09-25 08:20] LABS: MANUAL DIFF FLAG NO
[2023-09-25 08:59] LABS: Basophils Percent Auto 0.4 % (0-2); Eosinophils Absolute Auto 0.1 X10*3/uL (0.0-0.4); Eosinophils Percent Auto 1.6 % (0-4); Hematocrit 43.4 % (42.0-52.0); Hemoglobin 15.4 g/dl (14.0-18.0); Imm Gran Abs Auto 0.01 X10*3/uL (0.00-0.03); Imm Gran Pct Auto 0.2 % (0.0-0.4); Lymphocytes Absolute Auto 1.1 X10*3/uL (1.2-4.9); Lymphocytes Percent Auto 21.9 % (20-40); Mean Corpuscular HGB Conc 35.5 g/dl (31.0-36.0); Mean Corpuscular Hemoglobin 33.2 pg (27.0-33.0); Mean Corpuscular Volume 93.5 fL (80.0-98.0); Mean Platelet Volume 11.7 fL (9.4-12.4); Monocytes Absolute Auto 0.6 X10*3/uL (0.1-1.2); Monocytes Percent Auto 11.9 % (2-11); Neutrophils Absolute Auto 3.2 x10*3/uL (2.0-8.3); Red Blood Count 4.64 X10*6/uL (4.60-5.80); Red Cell Distribution Width 13.6 % (11.0-16.0)
[2023-09-25 09:00] LABS: Platelet Count 75 X10*3/uL (160-400)
[2023-09-25 09:27] LABS: Alanine Aminotransferase 59 U/L (0-40); Albumin Level 3.3 g/dL (3.5-5.0); Alkaline Phosphatase 137 U/L (39-117); Anion Gap 10 (12-20); Aspartate Amino Transferase 44 U/L (5-37); Bilirubin Total 0.9 mg/dL (0.0-1.0); Blood Urea Nitrogen 17 mg/dL (9-16); Calcium 8.6 mg/dL (8.4-10.2); Carbon Dioxide 27 mmol/L (22-29); Chloride 106 mmol/L (96-108); Estimated Glomerular Filt Rate > 60; Glucose Random 158 mg/dL (60-115); Potassium 3.8 mmol/L (3.3-5.1); Sodium 139 mmol/L (135-145); Total Protein 7.4 g/dL (6.5-8.0)
[2023-09-28 16:03] LABS: HCV Log PCR <1.18 NOT DETECTED Log IU/mL (NOT DETECTED); HepC Viral Load <15 NOT DETECTED IU/mL (NOT DETECTED)
== END 2023-09-25 07:58 | disposition home or self-care (01) ==
LOC: HO.LAB 07:57
PROVIDERS: PCP General Practice; Visit Provider Internal Medicine Gastroenterology
DX: K75.81 Nonalcoholic steatohepatitis (NASH) (principal); R76.8 Other specified abnormal immunological findings in serum; B19.20 Unspecified viral hepatitis C without hepatic coma
CPT/HCPCS: 36415; 80053; 85025; 87522

== ENCOUNTER 2023-09-28 12:14 | Outpatient (AMB) | payer MEDICAID, SELFPAY ==
--- NOTE | 2023-09-28 12:52 | MHC.AMDMED ---
Intake Intake Visit Reasons: DM-LVM Allergies No Known Allergies Allergy (Verified 07/31/23 11:56) HPI Comprehensive Diabetes Asmnt Most Recent Diabetes Results: Creatinine 1.03 mg/dL (0.5-1.4) 09/25/23 Blood Urea Nitrogen 17 mg/dL (9-16) H 09/25/23 Sodium 139 mmol/L (135-145) 09/25/23 Potassium 3.8 mmol/L (3.3-5.1) 09/25/23 Chloride 106 mmol/L (96-108) 09/25/23 Carbon Dioxide 27 mmol/L (22-29) 09/25/23 Calcium 8.6 mg/dL (8.4-10.2) 09/25/23 AST 44 U/L (5-37) H 09/25/23 ALT 59 U/L (0-40) H 09/25/23 Total Protein 7.4 g/dL (6.5-8.0) 09/25/23 Albumin 3.3 g/dL (3.5-5.0) L 09/25/23 [facility] Medical History Hepatitis C Cirrhosis Venereal warts HIV (human immunodeficiency virus infection) Diabetes mellitus Surgical History History of esophagogastroduodenoscopy (EGD) Family History Paternal Grandfather Colon cancer Social History (Updated 07/31/23 @ 14:11 by Elodia Vera MD) Alcohol intake: current Alcohol intake frequency: holidays/special occasions only Patient Tobacco Use Status: Current everyday Tobacco user Tobacco use type: Cigarette Cigarettes Per Day: 4 Substance Use Type: IV Drugs Assessment & Plan Assessment & Plan (1) T2DM (type 2 diabetes mellitus): Code(s): E11.9 - Type 2 diabetes mellitus without complications Plan: Reviewed the basic principles of carbohydrate counting.? Insulin to carb ratio, and insulin sensitivity factor calculated based on rule of 450 for insulin to carb ratio, and rule of 1500 for insulin sensitivity factor. Instructed patient on the importance of accurate calculation of the amount of carbs per meal Reviewed how to calculate mealtime bolus with insulin to carb ratio reduced to 1:14 from 1:15 Reviewed how to calculate correction dose with insulin sensitivity factor reduced from 1:60 to 1:50 in Bolus calc ling Pt reports that desired blood glucose target is 120 mg/dL Explained the importance of accurate carb counting when using insulin pump. recommended to patient he continue to practice carbohydrate estimation at mealtimes, always using ling for mealtime and corrections Pt able to calculated needed insulin based on estimated carbohydrate content Pt demonstrated at visit how to calculate mealtime insulin bolus and correction bolus. Instructed patient that there may need to be adjustment to insulin to carb ratio and sensitivity factor based on blood glucose trends. Pt will review Carb Counting handout provided by [employer] Patient Instructions: patient will call when he receives insulin pump supplies and Dexcom G6 sensor for training Coding Level of Care Code Est Pt Level 1 (10659) Diagnoses T2DM (type 2 diabetes mellitus) E11.9
== END 2023-09-28 12:54 | disposition home or self-care (01) ==
PROVIDERS: PCP General Practice; Visit Provider Registered Nurse Diabetes Educator
DX: E11.9 Type 2 diabetes mellitus without complications (principal)

== ENCOUNTER → 2023-09-28 12:14 | Outpatient (BNVA) | payer MEDICAID, SELFPAY | PROVIDERS: PCP General Practice; Visit Provider Registered Nurse Diabetes Educator | DX: E11.9 Type 2 diabetes mellitus without complications (principal) | CPT/HCPCS: 99211 ==

== ENCOUNTER 2023-10-18 12:26 | Outpatient (AMB) | payer MEDICAID, SELFPAY ==
--- NOTE | 2023-10-18 13:32 | MHC.AMDMED ---
Intake Intake Visit Reasons: Pump set up/CONFIRMED Film Flat Inspector Required: No Accompanied by: Self / Same As Patient Allergies No Known Allergies Allergy (Verified 07/31/23 11:56) HPI Comprehensive Diabetes Asmnt Most Recent Diabetes Results: Microalb/Creat Ratio 441.5 ug/mg cr 05/31/23 Cholesterol 218 mg/dL 05/31/23 HDL Cholesterol 53 mg/dL 05/31/23 Triglycerides 138 mg/dL 05/31/23 Creatinine 1.03 mg/dL (0.5-1.4) 09/25/23 Blood Urea Nitrogen 17 mg/dL (9-16) H 09/25/23 Sodium 139 mmol/L (135-145) 09/25/23 Potassium 3.8 mmol/L (3.3-5.1) 09/25/23 Chloride 106 mmol/L (96-108) 09/25/23 Carbon Dioxide 27 mmol/L (22-29) 09/25/23 Calcium 8.6 mg/dL (8.4-10.2) 09/25/23 AST 44 U/L (5-37) H 09/25/23 ALT 59 U/L (0-40) H 09/25/23 Total Protein 7.4 g/dL (6.5-8.0) 09/25/23 Albumin 3.3 g/dL (3.5-5.0) L 09/25/23 [facility] Medical History Hepatitis C Cirrhosis Venereal warts HIV (human immunodeficiency virus infection) Diabetes mellitus Surgical History History of esophagogastroduodenoscopy (EGD) Family History Paternal Grandfather Colon cancer Social History (Updated 07/31/23 @ 14:11 by Elodia Vera MD) Alcohol intake: current Alcohol intake frequency: holidays/special occasions only Patient Tobacco Use Status: Current everyday Tobacco user Tobacco use type: Cigarette Cigarettes Per Day: 4 Substance Use Type: IV Drugs Assessment & Plan Assessment & Plan (1) T2DM (type 2 diabetes mellitus): Code(s): E11.9 - Type 2 diabetes mellitus without complications Plan: Patient presents for pump training for Omni Pod 5 pump and CGM training today. The following topics were reviewed today: -Pump therapy basic concepts: Basal/bolus, insulin to carb ratio, correction factor, insulin on board -Device settings: Bluetooth/mobile connection (if applicable), correct date and time, sound volume -CGM settings(if integrated system): CGM graft views and trend arrows, alerts and alarms, Start new sensor ??? High Alert: 200 mg/dl ??? Low Alert: 70 mg/dl Omnipod user ID: [id number] Password: [id number] Insulin delivery settings Program insulin to carb ratio, correction factor, target blood glucose, suspend or resume insulin delivery, bolus limit and basal limit settings Instructed patient to only use room temperature insulin, how to load cartridge or fill pod, with insulin. Fill tubing and cannula (if applicable) Patient did not bring insulin to today's visit Will return tomorrow, to start new pods and connect Dexcom G6 sensor and transmitter to Omnipod 5 PDM Troubleshooting after starting new pod or inserting new insulin set: Occlusion, adhesive tape sensitivity, redness Check BG 2 hours after site change Safety information: Importance of a backup plan, for manual injections, proper prescriptions and emergency supplies ketone strips, and rules for testing for ketones Patient was able to insert insulin set today without difficulty. Patient understands the basic concepts of pump therapy, how to give insulin for meals and snacks, how to troubleshoot for hyper and hypoglycemia. Setting verified by CDCES Basal rate(s) (units/hour) : 12 AM? to 12 AM? 0.5 units / hr Bolus setting Insulin Carbohydrate Ratio (s) 12 AM? to 12 AM? 1:14 Correction Factor / Sensitivity Factor 12 AM? to 12 AM? 1:50 Active Insulin Time:? 4 hours Target(s): 12 AM? to 12 AM? 120 mg/dL Correction Threshold 130 mg/dL Patient will follow up with CDE as instructed Patient will contact CDE with questions or concerns, patient given IT number to support in any technical issues related to insulin pump Coding Level of Care Code Est Pt Level 1 (24630) Diagnoses T2DM (type 2 diabetes mellitus) E11.9
== END 2023-10-18 14:44 | disposition home or self-care (01) ==
PROVIDERS: PCP General Practice; Visit Provider Registered Nurse Diabetes Educator
DX: E11.9 Type 2 diabetes mellitus without complications (principal)

== ENCOUNTER → 2023-10-18 12:26 | Outpatient (BNVA) | payer MEDICAID, SELFPAY | PROVIDERS: PCP General Practice; Visit Provider Registered Nurse Diabetes Educator | DX: Z46.81 Encounter for fitting and adjustment of insulin pump (principal); E11.9 Type 2 diabetes mellitus without complications; Z79.4 Long term (current) use of insulin | CPT/HCPCS: 99211 ==

== ENCOUNTER 2023-10-19 08:57 | Outpatient (AMB) | payer MEDICAID, SELFPAY ==
--- NOTE | 2023-10-19 09:24 | MHC.AMDMED ---
Intake Intake Visit Reasons: 60 min/CONFIRMED Attending Radiologist Required: No Accompanied by: Self / Same As Patient Allergies No Known Allergies Allergy (Verified 07/31/23 11:56) HPI Comprehensive Diabetes Asmnt Most Recent Diabetes Results: Creatinine 1.03 mg/dL (0.5-1.4) 09/25/23 Blood Urea Nitrogen 17 mg/dL (9-16) H 09/25/23 Sodium 139 mmol/L (135-145) 09/25/23 Potassium 3.8 mmol/L (3.3-5.1) 09/25/23 Chloride 106 mmol/L (96-108) 09/25/23 Carbon Dioxide 27 mmol/L (22-29) 09/25/23 Calcium 8.6 mg/dL (8.4-10.2) 09/25/23 AST 44 U/L (5-37) H 09/25/23 ALT 59 U/L (0-40) H 09/25/23 Total Protein 7.4 g/dL (6.5-8.0) 09/25/23 Albumin 3.3 g/dL (3.5-5.0) L 09/25/23 [facility] Medical History Hepatitis C Cirrhosis Venereal warts HIV (human immunodeficiency virus infection) Diabetes mellitus Surgical History History of esophagogastroduodenoscopy (EGD) Family History Paternal Grandfather Colon cancer Social History (Updated 07/31/23 @ 14:11 by Elodia Vera MD) Alcohol intake: current Alcohol intake frequency: holidays/special occasions only Patient Tobacco Use Status: Current everyday Tobacco user Tobacco use type: Cigarette Cigarettes Per Day: 4 Substance Use Type: IV Drugs Assessment & Plan Assessment & Plan (1) Diabetes mellitus: Comment: PCP: RECOMMEND Nutritional Supplement related to Cirrhosis: Ensure high protein once a day Code(s): E11.9 - Type 2 diabetes mellitus without complications Plan: Patient presents for pump training for Omni Pod 5 pump and CGM training today. The following topics were reviewed today: -Connected PDM to Dexcom g6 transmitter ??? High Alert: 200 mg/dl ??? Low Alert: 70 mg/dl Omnipod user ID: [id number] Password: [email or web address]! Instructed patient to only use room temperature insulin, how to load cartridge or fill pod, with insulin. Fill tubing and cannula (if applicable) Inserting infusion set or starting pod Troubleshooting after starting new pod or inserting new insulin set: Occlusion, adhesive tape sensitivity, redness Check BG 2 hours after site change Safety information: Importance of a backup plan, for manual injections, proper prescriptions and emergency supplies ketone strips, and rules for testing for ketones Patient was able to insert insulin set today without difficulty. Troubleshooting after starting new pod or inserting new insulin set: Occlusion, adhesive tape sensitivity, redness Check BG 2 hours after site change Safety information: Importance of a backup plan, for manual injections, proper prescriptions and emergency supplies ketone strips, and rules for testing for ketones Patient was able to insert insulin set today without difficulty. Patient understands the basic concepts of pump therapy, how to give insulin for meals and snacks, how to troubleshoot for hyper and hypoglycemia. Setting verified by CDCES Basal rate(s) (units/hour) : 12 AM? to 12 AM? 0.5 units / hr Bolus setting Insulin Carbohydrate Ratio (s) 12 AM? to 12 AM? 1:14 Correction Factor / Sensitivity Factor 12 AM? to 12 AM? 1:50 Active Insulin Time:? 4 hours Target(s): 12 AM? to 12 AM? 120 mg/dL Correction Threshold 130 mg/dL Patient Instructions: Pt will follow up with nurse educator in 2 weeks Coding Level of Care Code Est Pt Level 1 (95449) Diagnoses Diabetes mellitus E11.9
== END 2023-10-19 09:27 | disposition home or self-care (01) ==
PROVIDERS: PCP General Practice; Visit Provider Registered Nurse Diabetes Educator
DX: E11.9 Type 2 diabetes mellitus without complications (principal)

== ENCOUNTER → 2023-10-19 08:57 | Outpatient (BNVA) | payer MEDICAID, SELFPAY | PROVIDERS: PCP General Practice; Visit Provider Registered Nurse Diabetes Educator | DX: Z46.81 Encounter for fitting and adjustment of insulin pump (principal); E11.9 Type 2 diabetes mellitus without complications; Z79.4 Long term (current) use of insulin | CPT/HCPCS: 99211 ==

== ENCOUNTER 2023-11-09 10:49 | Outpatient (AMB) | payer MEDICAID, SELFPAY ==
--- NOTE | 2023-11-09 11:08 | MHC.AMDMED ---
Intake Intake Visit Reasons: 2 week f/u Plaster Maker Required: No Accompanied by: Self / Same As Patient Allergies No Known Allergies Allergy (Verified 07/31/23 11:56) HPI Comprehensive Diabetes Asmnt Most Recent Diabetes Results: Microalb/Creat Ratio 441.5 ug/mg cr 05/31/23 Cholesterol 218 mg/dL 05/31/23 HDL Cholesterol 53 mg/dL 05/31/23 Triglycerides 138 mg/dL 05/31/23 Creatinine 1.03 mg/dL (0.5-1.4) 09/25/23 Blood Urea Nitrogen 17 mg/dL (9-16) H 09/25/23 Sodium 139 mmol/L (135-145) 09/25/23 Potassium 3.8 mmol/L (3.3-5.1) 09/25/23 Chloride 106 mmol/L (96-108) 09/25/23 Carbon Dioxide 27 mmol/L (22-29) 09/25/23 Calcium 8.6 mg/dL (8.4-10.2) 09/25/23 AST 44 U/L (5-37) H 09/25/23 ALT 59 U/L (0-40) H 09/25/23 Total Protein 7.4 g/dL (6.5-8.0) 09/25/23 Albumin 3.3 g/dL (3.5-5.0) L 09/25/23 [facility] Medical History Hepatitis C Cirrhosis Venereal warts HIV (human immunodeficiency virus infection) Diabetes mellitus Surgical History History of esophagogastroduodenoscopy (EGD) Family History Paternal Grandfather Colon cancer Social History (Updated 07/31/23 @ 14:11 by Elodia Vera MD) Alcohol intake: current Alcohol intake frequency: holidays/special occasions only Patient Tobacco Use Status: Current everyday Tobacco user Tobacco use type: Cigarette Cigarettes Per Day: 4 Substance Use Type: IV Drugs Assessment & Plan Assessment & Plan (1) Diabetes mellitus: Comment: PCP: RECOMMEND Nutritional Supplement related to Cirrhosis: Ensure high protein once a day Code(s): E11.9 - Type 2 diabetes mellitus without complications Plan: Patient presents for pump training for Omni Pod 5 pump and CGM training today. The following topics were reviewed today: Patient was unable to product picker refill of pods, called [facility] pharmacy in [facility] to let them know patient has approval for Omnipod 5 pods Patient also given Dexcom sensor to restart system Patient has been resumed MDI after November 03 when he was unable to refill prescription for pods Patient has data through November 03 2023 Patient's average glucose on pump data 159 mg/dL Patient above target 29% Patient at target 70% Patient below target 1% ??? High Alert: 200 mg/dl ??? Low Alert: 70 mg/dl Omnipod user ID: [id number] Password: [email or web address]! Instructed patient to only use room temperature insulin, how to load cartridge or fill pod, with insulin. Fill tubing and cannula (if applicable) Patient stated he understands how to reinitiate Omnipod 5 Inserting infusion set or starting pod Troubleshooting after starting new pod or inserting new insulin set: Occlusion, adhesive tape sensitivity, redness Check BG 2 hours after site change Troubleshooting after starting new pod or inserting new insulin set: Occlusion, adhesive tape sensitivity, redness Check BG 2 hours after site change Safety information: Importance of a backup plan, for manual injections, proper prescriptions and emergency supplies ketone strips, and rules for testing for ketones Patient was able to insert insulin set today without difficulty. Patient understands the basic concepts of pump therapy, how to give insulin for meals and snacks, how to troubleshoot for hyper and hypoglycemia. Setting verified by CDCES Basal rate(s) (units/hour) : 12 AM? to 12 AM? 0.5 units / hr Bolus setting Insulin Carbohydrate Ratio (s) 12 AM? to 12 AM? 1:14 Correction Factor / Sensitivity Factor 12 AM? to 12 AM? 1:50 Active Insulin Time:? 4 hours Target(s): 12 AM? to 12 AM? 120 mg/dL Correction Threshold 130 mg/dL Patient Instructions: Follow-up with Diabetes Education nurse in 1 month Coding Level of Care Code Est Pt Level 1 (38698) Diagnoses Diabetes mellitus E11.9
== END 2023-11-09 11:14 | disposition home or self-care (01) ==
PROVIDERS: PCP General Practice; Visit Provider Registered Nurse Diabetes Educator
DX: E11.9 Type 2 diabetes mellitus without complications (principal)

== ENCOUNTER → 2023-11-09 10:49 | Outpatient (BNVA) | payer MEDICAID, SELFPAY | PROVIDERS: PCP General Practice; Visit Provider Registered Nurse Diabetes Educator | DX: Z46.81 Encounter for fitting and adjustment of insulin pump (principal); E11.9 Type 2 diabetes mellitus without complications | CPT/HCPCS: 99211 ==

== ENCOUNTER 2023-11-13 12:33 | Outpatient (AMB) | payer MEDICAID, SELFPAY ==
--- NOTE | 2023-11-13 12:56 | MHC.AMDMED ---
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 Wellness Required: No Accompanied by: Self / Same As Patient Allergies No Known Allergies Allergy (Verified 07/31/23 11:56) HPI Comprehensive Diabetes Asmnt Most Recent Diabetes Results: Creatinine 1.03 mg/dL (0.5-1.4) 09/25/23 Blood Urea Nitrogen 17 mg/dL (9-16) H 09/25/23 Sodium 139 mmol/L (135-145) 09/25/23 Potassium 3.8 mmol/L (3.3-5.1) 09/25/23 Chloride 106 mmol/L (96-108) 09/25/23 Carbon Dioxide 27 mmol/L (22-29) 09/25/23 Calcium 8.6 mg/dL (8.4-10.2) 09/25/23 AST 44 U/L (5-37) H 09/25/23 ALT 59 U/L (0-40) H 09/25/23 Total Protein 7.4 g/dL (6.5-8.0) 09/25/23 Albumin 3.3 g/dL (3.5-5.0) L 09/25/23 [facility] Medical History Hepatitis C Cirrhosis Venereal warts HIV (human immunodeficiency virus infection) Diabetes mellitus Surgical History History of esophagogastroduodenoscopy (EGD) Family History Paternal Grandfather Colon cancer Social History (Updated 07/31/23 @ 14:11 by Elodia Vera MD) Alcohol intake: current Alcohol intake frequency: holidays/special occasions only Patient Tobacco Use Status: Current everyday Tobacco user Tobacco use type: Cigarette Cigarettes Per Day: 4 Substance Use Type: IV Drugs Assessment & Plan Assessment & Plan (1) T2DM (type 2 diabetes mellitus): Code(s): E11.9 - Type 2 diabetes mellitus without complications Plan: Patient walked into clinic because he has been unable to reconnect Dexcom G6 sensor to Omnipod 5 Dexcom transmitter appears to be functioning, instructed patient to insert new sensor in attached transmitter. Reviewed with patient how to set up new pod. Patient left visit with pods in place and Dexcom G6 in warmup Instructed patient if he is difficulty with Dexcom sensor he should contact [employer]com for troubleshooting and 2 request replacement sensors Patient Instructions: Patient has follow-up appointment on 12/10/2023 Coding Level of Care Code Est Pt Level 1 (75011) Diagnoses T2DM (type 2 diabetes mellitus) E11.9
== END 2023-11-13 14:06 | disposition home or self-care (01) ==
LOC: HO.ENCR 12:33
PROVIDERS: PCP General Practice; Visit Provider Registered Nurse Diabetes Educator
DX: E11.9 Type 2 diabetes mellitus without complications (principal)

== ENCOUNTER → 2023-11-13 12:33 | Outpatient (BNVA) | payer MEDICAID, SELFPAY | PROVIDERS: PCP General Practice; Visit Provider Registered Nurse Diabetes Educator | DX: E11.9 Type 2 diabetes mellitus without complications (principal) | CPT/HCPCS: 99211 ==

== ENCOUNTER 2023-11-14 09:04 | Outpatient (REF) | payer MEDICAID, SELFPAY ==
[2023-11-14 11:09] LABS: Cholesterol 160 mg/dL (<200); HDL Cholesterol 59 mg/dL (>40); LDL Cholesterol Calculated 84 mg/dL (<100); Triglycerides 88 mg/dL (<150)
[2023-11-14 11:31] LABS: Reflex LDLD? No
[2023-11-16 07:38] LABS: RPR Rapid Plasma Reagin NON-REACTIVE (NON-REACTIVE)
[2023-11-16 10:34] LABS: Absolute CD3 Count 709 cells/uL (840-3060); Absolute CD4 Count 357 cells/uL (490-1740); Absolute CD8 Count 339 cells/uL (180-1170); Absolute Lymphocytes 1226 cells/uL (850-3900); CD4 CD8 Ratio 1.05 (0.86-5.00); Percent CD3 Cells 58 % (57-85); Percent CD4 Cells 29 % (30-61); Percent CD8 Cells 28 % (12-42)
[2023-11-16 14:22] LABS: HIV RNA PCR Qn Copies NOT DETECTED copies/mL (NOT DETECTED); HIV RNA PCR Qn Log Copies NOT DETECTED (NOT DETECTED)
== END 2023-11-14 09:05 | disposition home or self-care (01) ==
LOC: HO.LAB 09:04
PROVIDERS: PCP General Practice; Visit Provider Internal Medicine
DX: B20 Human immunodeficiency virus [HIV] disease (principal)
CPT/HCPCS: 36415; 80061; 86359; 86360; 86592; 87536

== ENCOUNTER 2023-11-21 13:01 | Outpatient (AMB) | payer MEDICAID, SELFPAY ==
--- NOTE | 2023-11-21 13:57 | A.OFFVIS_ITS ---
Intake Intake Visit Reasons: dm Geological Technician Required: No Accompanied by: Self / Same As Patient Allergies No Known Allergies Allergy (Verified 07/31/23 11:56) HPI Comprehensive Diabetes Asmnt Most Recent Diabetes Results: Cholesterol 160 mg/dL (<200) 11/14/23 HDL Cholesterol 59 mg/dL (>40) 11/14/23 Triglycerides 88 mg/dL (<150) 11/14/23 Creatinine 1.03 mg/dL (0.5-1.4) 09/25/23 Blood Urea Nitrogen 17 mg/dL (9-16) H 09/25/23 Sodium 139 mmol/L (135-145) 09/25/23 Potassium 3.8 mmol/L (3.3-5.1) 09/25/23 Chloride 106 mmol/L (96-108) 09/25/23 Carbon Dioxide 27 mmol/L (22-29) 09/25/23 Calcium 8.6 mg/dL (8.4-10.2) 09/25/23 AST 44 U/L (5-37) H 09/25/23 ALT 59 U/L (0-40) H 09/25/23 Total Protein 7.4 g/dL (6.5-8.0) 09/25/23 Albumin 3.3 g/dL (3.5-5.0) L 09/25/23 [facility] Medical History Hepatitis C Cirrhosis Venereal warts HIV (human immunodeficiency virus infection) Diabetes mellitus Surgical History History of esophagogastroduodenoscopy (EGD) Family History Paternal Grandfather Colon cancer Social History (Updated 07/31/23 @ 14:11 by Elodia Vera MD) Alcohol intake: current Alcohol intake frequency: holidays/special occasions only Patient Tobacco Use Status: Current everyday Tobacco user Tobacco use type: Cigarette Cigarettes Per Day: 4 Substance Use Type: IV Drugs Assessment & Plan Assessment & Plan (1) T2DM (type 2 diabetes mellitus): Code(s): E11.9 - Type 2 diabetes mellitus without complications Plan: Patient came in because he is having difficulty with pods the disconnecting from PDM. Called Omnipod customer support with patient in office Omnipod customer support recommended we shut down PDM wait 5 minutes and then turn it back on Patient has lost 4 pods due to this issue patient did not lot number of pods so we were unable to get replacement pods Patient given Omnipod customer support and recommended to call back with lot number. Patient will belt picker prescription of pods at [facility] on [facility], so he does not run out of Omnipod Patient has follow-up appointment on 12/10/2023 Coding Level of Care Code Est Pt Level 1 (70480) Diagnoses T2DM (type 2 diabetes mellitus) E11.9
== END 2023-11-21 15:00 | disposition home or self-care (01) ==
PROVIDERS: PCP General Practice; Visit Provider Registered Nurse Diabetes Educator
DX: E11.9 Type 2 diabetes mellitus without complications (principal)

== ENCOUNTER → 2023-11-21 13:01 | Outpatient (BNVA) | payer MEDICAID, SELFPAY | PROVIDERS: PCP General Practice; Visit Provider Registered Nurse Diabetes Educator | DX: E11.9 Type 2 diabetes mellitus without complications (principal) | CPT/HCPCS: 99211 ==

== ENCOUNTER 2023-11-29 10:37 | Outpatient (AMB) | payer MEDICAID, SELFPAY ==
--- NOTE | 2023-11-29 12:41 | MHC.AMDMED ---
Intake Intake Visit Reasons: DM/CONFIRMED Accounting Practice Manager Required: No Accompanied by: Self / Same As Patient Allergies No Known Allergies Allergy (Verified 07/31/23 11:56) HPI Comprehensive Diabetes Asmnt Most Recent Diabetes Results: Microalb/Creat Ratio 441.5 ug/mg cr 05/31/23 Cholesterol 160 mg/dL (<200) 11/14/23 HDL Cholesterol 59 mg/dL (>40) 11/14/23 Triglycerides 88 mg/dL (<150) 11/14/23 Creatinine 1.03 mg/dL (0.5-1.4) 09/25/23 Blood Urea Nitrogen 17 mg/dL (9-16) H 09/25/23 Sodium 139 mmol/L (135-145) 09/25/23 Potassium 3.8 mmol/L (3.3-5.1) 09/25/23 Chloride 106 mmol/L (96-108) 09/25/23 Carbon Dioxide 27 mmol/L (22-29) 09/25/23 Calcium 8.6 mg/dL (8.4-10.2) 09/25/23 AST 44 U/L (5-37) H 09/25/23 ALT 59 U/L (0-40) H 09/25/23 Total Protein 7.4 g/dL (6.5-8.0) 09/25/23 Albumin 3.3 g/dL (3.5-5.0) L 09/25/23 [facility] Medical History Hepatitis C Cirrhosis Venereal warts HIV (human immunodeficiency virus infection) Diabetes mellitus Surgical History History of esophagogastroduodenoscopy (EGD) Family History Paternal Grandfather Colon cancer Social History (Updated 07/31/23 @ 14:11 by Elodia Vera MD) Alcohol intake: current Alcohol intake frequency: holidays/special occasions only Patient Tobacco Use Status: Current everyday Tobacco user Tobacco use type: Cigarette Cigarettes Per Day: 4 Substance Use Type: IV Drugs Assessment & Plan Assessment & Plan (1) T2DM (type 2 diabetes mellitus): Code(s): E11.9 - Type 2 diabetes mellitus without complications Plan: Patient is still having difficulty with getting pods to keep communication with PDM. Called [employer] once again gave them the information regarding the failed pods and serial number and error log e-mail directly to them for the PDM. Insulin agreed to replace 7 of the lost pods Plan Patient will insert new pods on same arm as Dexcom G6 sensor If he continues to have this issue he will contact [employer] again for new PDM Patient Instructions: Patient has follow-up appointment scheduled on 12/10/2023 Coding Level of Care Code Est Pt Level 1 (83362) Diagnoses T2DM (type 2 diabetes mellitus) E11.9
== END 2023-11-29 11:21 | disposition home or self-care (01) ==
PROVIDERS: PCP General Practice; Visit Provider Registered Nurse Diabetes Educator
DX: E11.9 Type 2 diabetes mellitus without complications (principal)

== ENCOUNTER → 2023-11-29 10:37 | Outpatient (BNVA) | payer MEDICAID, SELFPAY | PROVIDERS: PCP General Practice; Visit Provider Registered Nurse Diabetes Educator | DX: E11.9 Type 2 diabetes mellitus without complications (principal) | CPT/HCPCS: 99211 ==

== ENCOUNTER 2023-11-30 14:13 | Outpatient (AMB) | payer MEDICAID, SELFPAY ==
--- NOTE | 2023-11-30 14:17 | MHC.OFFVIS ---
Intake Vital Signs 11/30/23 14:18 Height 5 ft 1 in Weight 113 lb BMI 21.3 BP 137/65 Blood Pressure Location Rt brachial Position Sitting Pulse 62 Pulse Source Monitor Intake Visit Reasons: follow up Intake Note: Patient states hes been having frequent bloating after eating. No other GI concerns at the moment. 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 Accompanied by nephad Hartley. 10/27/22: Moved from [place] a month ago. 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 Reports being told about HCV almost 20 years ago. Thinks may be was sexually transmitted, reports remote hx of IVDU. Not aware of hepatitis status of family/first degree relatives. Drinks etOH socially may be 2-3 times a year. Former smoker. Was diagnosed with cirrhosis almost 11 months ago when he developed ascites. Has been on lasix 20mg and spironolactone 50mg since then. Often has to get paracentesis every week. Also had an admission for hepatic encephaloapthy a few months ago and now takes lactulose, although does report that is not taking it daily. Had an EGD in April/May 2022 - had small varices. Has been on coreg since then. Never had a colonoscopy. Last ultrasound was may be 3-4 months ago, not aware of findings. Also has concurrent HIV, on Biktarvy through dept of public health. 11/28/22: Took spironolactone for only 3 weeks before he started noticing breast tenderness and enlargement so he discontinued the medication. However, when he was taking the medication, notice significant improvement in his ascites. Has not started watching his salt intake yet. Today, he also mentions that almost a year ago, when he was incarcerated, he was found to have a 2.5 cm spot on his liver. He was initially told this could be cancer. He then underwent a biopsy. However, does not recall what he was told. Also does not recall getting any treatment including resection, locoregional or systemic therapy. This is the first time pt brought up this information. Pt insists he did report this to the ER provider who referred him to GI however I do not see any previous documentation. Has been seen by ID for HIV, continues on biktarvy. 01/02/23 US Abd: 1. Heterogeneous liver with a 1.6 cm mass adjacent to the gallbladder fossa. MRI is recommended for further evaluation. 2. Thickened gallbladder wall with fluid in the wall and gallbladder polyp. Please correlate clinically. 01/15/23: Records were reviewed from [facility]. Was admitted in the hospital August 2022 for altered mental status and found to have 5 cm liver mass 5 cm on MRI. A liver biopsy was completed how inadequate sample was obtained. Repeat IR guided biopsy was not pursued due to necrosis. Plan was for interval AFP and MRI. He was not deemed a transplant candidate by that facility due to relapse of substance use and poor social support. Today, going for his MRI after this appt. Main complaint is unchanged which is R sided abd pain that goes to both his flanks, intermittent, cramping in nature. Otherwise, no nausea, vomiting, changes in appetite, or stool. Has been taking his Lasix and amiloride. Due for blood work. Salt restriction remains a barrier although patient has been trying to limit Na intake as much as possible. Remains abstinent from substance use x more than 2 years. EtOH use limited to 2-3 times a year. MRI 01/25/23: *? Cirrhotic liver, varices and splenomegaly. *? No imaging evidence of hepatocellular carcinoma. *? Compared to prior MRI from 08/26/2022, there has been resolution of the complex rim-enhancing lesion of segment 4 that previously measured up to approximately 5 cm. Instead, this follow-up MRI shows a small 0.8 cm focus of intrinsic T1 signal shortening from blood products or proteinaceous material at the site of the suspected abscess. No interval development of a hyperenhancing liver lesion or lymphadenopathy.? 03/28/23: No acute issues today. Feels that ascites is pretty much gone despite some nondiscretion with dietary salt. Has not had any confusional spells so he has reduced lactulose to 3-4 times per week. Energy levels are good. No report of abd pain, N,V, fatigue. MRI results were already relayed to him. 07/31/23: EGD/colo: 1. Esophageal varices (banding) 2. Portal hypertensive gastropathy 3. Portal hypertensive duodenopathy 4. Normal colon and terminal ileum mucosa 5. Total of 3 polyps removed 6. Medium internal hemorrhoids Path: A. Duodenum, biopsy: Duodenal mucosa with preserved villi and no specific change. B. Colon, transverse, polyps: Tubular adenoma, one; negative for high-grade dysplasia and carcinoma. C. Colon, sigmoid, polyp: Consistent with hyperplastic polyp 11/30/23: Here for follow up after his EGD/colo as well as completion of HCV tx. Has been doing well. No gastrointestinal complaints. No abd distention. Does not report trouble concentrating. No N/V/D. No blood in stool. Not completely adherent to salt restriction but has also not noticed any increase in abd girth. Reports good energy levels. Completed Epclusa 09/2023. Due for SVR12 labs. Last MRI was January 2023 - overdue for repeat imaging. Current meds: Carvedilol 6.25 BID Furosemide 20 once daily PFSH Medical History Hepatitis C Cirrhosis Venereal warts HIV (human immunodeficiency virus infection) Diabetes mellitus Surgical History History of esophagogastroduodenoscopy (EGD) Family History Paternal Grandfather Colon cancer Social History (Updated 07/31/23 @ 14:11 by Elodia Vera MD) Alcohol intake: current Alcohol intake frequency: holidays/special occasions only Patient Tobacco Use Status: Current everyday Tobacco user Tobacco use type: Cigarette Cigarettes Per Day: 4 Substance Use Type: IV Drugs Review of Systems Const All systems reviewed & are unremarkable except as noted in HPI and below Physical Exam Vital Signs: Last Vital Signs Pulse 62 11/30/23 14:18 BP 137/65 11/30/23 14:18 BMI result Body Mass Index 21.3 Gen appear: No acute distress HEENT: no icterus, no cervical lymphadenopathy, temporal wasting Chest: No overt resp distress CVS: S1/S2, regular Abd: soft, non distended, no shifting dullness to percussion Psych: Stable affect, answering questions appropriately, no asterixis Neuro: A/Ox3 noted to move all extremities spontaneously Ext: no peripheral edema, spider angioma on chest Assessment & Plan Assessment & Plan (1) Hepatic cirrhosis due to chronic hepatitis C infection: Code(s): B18.2 - Chronic viral hepatitis C; K74.60 - Unspecified cirrhosis of liver (2) HIV (human immunodeficiency virus infection): Code(s): B20 - Human immunodeficiency virus [HIV] disease (3) Hepatitis B core antibody positive: Code(s): R76.8 - Other specified abnormal immunological findings in serum (4) Liver mass: Code(s): R16.0 - Hepatomegaly, not elsewhere classified (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 Immediate post viral labs promising. Due for SVR 12 check next month. Since has HBV core AB positive, will also check HBV DNA. He is also overdue for HCC screening. MRI ordered. 1. HCV viral load ordered 2. HBV viral load ordered 3. Ascites/peripheral edema: No ascites on exam today. Cont Amiloride 10mg and furosemide 40mg Recheck BMP, urine Na and K. Low salt 2g diet reinforced. Pt was also advised to weigh himself frequently and to call office for weight gain of 3lbs in 2days or 5 lbs in 7 days. 4. Variceal screening: Last EGD 07/2023. On Coreg 6.25 BID for primary prophylaxis. Can consider repeat EGD in 2024. 5. HCC screening: Overdue. MRI ordered. 6. Resolved HBV status: will need prophylaxis prior to any immunosuppression. Checkign HBV DNA as compelted Epclusa. 7. Hepatic encephalopathy: Resolved. Educated on early s/sx of encephalopathy in which case he is to resume lactulose for goal 2-3 BMs per day. Avoid benzos, opiates, Benadryl and other OTC sedatives. 8. Pain control: NSAIDs to be completely avoided. Also reviewed avoidance of opiates due to hx of HE as above. Tylenol up to 2g/day is okay. 9. Nutrition: Reviewed 2g Na diet as above. Do not restrict protein. Add a night time snack to avoid prolonged period of fasting. 10. CRC screening: Had x1 tubular adenoma on colo 07/2023. Repeat recommended in 2029. 11. Labs: Updated MELD labs ordered. Follow up in 3 months. Orders: Orders MR abdomen wo/w con 11/30/23 R16.0 - Hepatomegaly, not elsewhere classified, B19.20 - Unspecified viral hepatitis C without hepatic coma Comprehensive Met. Panel 12/05/23 K74.60 - Unspecified cirrhosis of liver Hepatitis B Viral DNA Qn 12/05/23 R76.8 - Other specified abnormal immunological findings in serum, B19.20 - Unspecified viral hepatitis C without hepatic coma Hepatitis C Viral Load 12/05/23 R76.8 - Other specified abnormal immunological findings in serum, B19.20 - Unspecified viral hepatitis C without hepatic coma Complete Blood Count no Diff 12/05/23 K74.60 - Unspecified cirrhosis of liver Prothrombin Time INR 12/05/23 K74.60 - Unspecified cirrhosis of liver Coding Level of Care Code Est Pt Level 4 (84890) Diagnoses Hepatic cirrhosis due to chronic hepatitis C infection B18.2; K74.60 HIV (human immunodeficiency virus infection) B20 Hepatitis B core antibody positive R76.8 Liver mass R16.0 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
[2023-11-30 14:18] VITALS: BP 137/65; PULSE 62; BMI 21.3
== END 2023-11-30 15:20 | disposition home or self-care (01) ==
PROVIDERS: PCP General Practice; Visit Provider Internal Medicine
DX: B18.2 Chronic viral hepatitis C (principal); K74.60 Unspecified cirrhosis of liver; B20 Human immunodeficiency virus [HIV] disease; R76.8 Other specified abnormal immunological findings in serum; R16.0 Hepatomegaly, not elsewhere classified; Z79.899 Other long term (current) drug therapy
CPT/HCPCS: 99214

== ENCOUNTER → 2023-11-30 14:13 | Outpatient (BNVA) | payer MEDICAID, SELFPAY | PROVIDERS: PCP General Practice; Visit Provider Internal Medicine | DX: K74.60 Unspecified cirrhosis of liver (principal); B18.2 Chronic viral hepatitis C; B20 Human immunodeficiency virus [HIV] disease; R76.8 Other specified abnormal immunological findings in serum; R16.0 Hepatomegaly, not elsewhere classified; Z79.899 Other long term (current) drug therapy | CPT/HCPCS: 99212 ==

== ENCOUNTER 2023-12-05 11:11 | Outpatient (REF) | payer MEDICAID, SELFPAY ==
[2023-12-05 11:59] LABS: Hematocrit 44.2 % (42.0-52.0); Hemoglobin 16.1 g/dl (14.0-18.0); Mean Corpuscular HGB Conc 36.4 g/dl (31.0-36.0); Mean Corpuscular Hemoglobin 33.8 pg (27.0-33.0); Mean Corpuscular Volume 92.7 fL (80.0-98.0); Mean Platelet Volume 10.2 fL (9.4-12.4); PLT CLUMP 1; Red Blood Count 4.77 X10*6/uL (4.60-5.80); Red Cell Distribution Width 14.2 % (11.0-16.0)
[2023-12-05 12:01] LABS: Platelet Count 83 X10*3/uL (160-400); Prothrombin Time 12.4 SEC (11.1-13.3); White Blood Count 4.8 X10*3/uL (4.8-10.8)
[2023-12-05 12:28] LABS: Alanine Aminotransferase 54 U/L (0-40); Albumin Level 3.3 g/dL (3.5-5.0); Alkaline Phosphatase 161 U/L (39-117); Anion Gap 9 (12-20); Aspartate Amino Transferase 62 U/L (5-37); Bilirubin Total 1.5 mg/dL (0.0-1.0); Blood Urea Nitrogen 18 mg/dL (9-16); Carbon Dioxide 27 mmol/L (22-29); Chloride 108 mmol/L (96-108); Estimated Glomerular Filt Rate > 60; Glucose Random 114 mg/dL (60-115); Potassium 4.3 mmol/L (3.3-5.1); Sodium 140 mmol/L (135-145); Total Protein 7.8 g/dL (6.5-8.0)
[2023-12-07 15:53] LABS: Hepatitis B Viral DNA Qn - cp NOT DETECTED Log IU/mL (NOT DETECTED); Hepatitis B Viral DNA Qn-IU/mL NOT DETECTED (NOT DETECTED)
[2023-12-08 08:19] LABS: HCV Log PCR <1.18 NOT DETECTED Log IU/mL (NOT DETECTED); HepC Viral Load <15 NOT DETECTED IU/mL (NOT DETECTED)
== END 2023-12-05 11:12 | disposition home or self-care (01) ==
LOC: HO.LAB 11:11
PROVIDERS: PCP General Practice; Visit Provider Internal Medicine
DX: K74.60 Unspecified cirrhosis of liver (principal); R76.8 Other specified abnormal immunological findings in serum; B19.20 Unspecified viral hepatitis C without hepatic coma
CPT/HCPCS: 36415; 80053; 85027; 85610; 87517; 87522

== ENCOUNTER 2023-12-10 10:11 | Outpatient (REF) | payer MEDICAID, SELFPAY ==
--- NOTE | ~2023-12-10 | XR_ITS ---
EXAMINATION: XR RIBS, RIGHT CLINICAL INFORMATION: Pain after fall approximately 2 weeks ago COMPARISON: None available. TECHNIQUE: 3 views of the right ribs were obtained. FINDINGS: Cardiac silhouette is normal in size. The lungs are well aerated. There is no lobar consolidation. No pleural effusion or pneumothorax. No acute right-sided rib fracture identified. XR/XR ribs RT min 3V w CXR1V IMPRESSION: No acute right-sided rib fracture.
== END 2023-12-10 10:12 | disposition home or self-care (01) ==
LOC: HO.HHCX 10:11
PROVIDERS: Visit Provider Internal Medicine Geriatric Medicine
DX: R07.81 Pleurodynia (principal); E11.9 Type 2 diabetes mellitus without complications
CPT/HCPCS: 71101; 99211

== ENCOUNTER 2023-12-10 10:50 | Outpatient (AMB) | payer MEDICAID, SELFPAY ==
--- NOTE | 2023-12-10 11:35 | A.OFFVIS_ITS ---
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 Accompanied by: Self / Same As Patient Allergies No Known Allergies Allergy (Verified 11/30/23 14:23) HPI Comprehensive Diabetes Asmnt Most Recent Diabetes Results: Microalb/Creat Ratio 441.5 ug/mg cr 05/31/23 Cholesterol 160 mg/dL (<200) 11/14/23 HDL Cholesterol 59 mg/dL (>40) 11/14/23 Triglycerides 88 mg/dL (<150) 11/14/23 Creatinine 0.94 mg/dL (0.5-1.4) 12/05/23 Blood Urea Nitrogen 18 mg/dL (9-16) H 12/05/23 Sodium 140 mmol/L (135-145) 12/05/23 Potassium 4.3 mmol/L (3.3-5.1) 12/05/23 Chloride 108 mmol/L (96-108) 12/05/23 Carbon Dioxide 27 mmol/L (22-29) 12/05/23 Calcium 9.0 mg/dL (8.4-10.2) 12/05/23 AST 62 U/L (5-37) H 12/05/23 ALT 54 U/L (0-40) H 12/05/23 Total Protein 7.8 g/dL (6.5-8.0) 12/05/23 Albumin 3.3 g/dL (3.5-5.0) L 12/05/23 [facility] Medical History Hepatitis C Cirrhosis Venereal warts HIV (human immunodeficiency virus infection) Diabetes mellitus Surgical History History of esophagogastroduodenoscopy (EGD) Family History Paternal Grandfather Colon cancer Social History (Updated 07/31/23 @ 14:11 by Elodia Vera MD) Alcohol intake: current Alcohol intake frequency: holidays/special occasions only Patient Tobacco Use Status: Current everyday Tobacco user Tobacco use type: Cigarette Cigarettes Per Day: 4 Substance Use Type: IV Drugs Assessment & Plan Assessment & Plan (1) Diabetes mellitus: Comment: PCP: RECOMMEND Nutritional Supplement related to Cirrhosis: Ensure high protein once a day Code(s): E11.9 - Type 2 diabetes mellitus without complications Plan: Patient presents for pump training for Omni Pod 5 pump and CGM training today. The following topics were reviewed today: -set up Omnipod 5 ling on patient's cellphone ??? High Alert: 200 mg/dl ??? Low Alert: 70 mg/dl Patient's average glucose 146 mg/dL Patient above target 19% Patient at target 80% Patient below target 1% Patient's glucose has improved significantly since initiation of Omnipod 5 Patient's last A1c was 9.2 in May 2023, patient does not have another appointment with Dr. Jones until February 2024 Instructed patient to have A1c drawn, patient is overdue. A1c is already in patient's lab order Set up Omnipod 5 ling on patient's cellphone to see if it can improve can activity with pods. Instructed patient at next pods change to use Omnipod 5 ling on his cellphone instead of PDM Omnipod user ID: [id number] Password: [email or web address] Instructed patient to only use room temperature insulin, how to load cartridge or fill pod, with insulin. Fill tubing and cannula (if applicable) Troubleshooting after starting new pod or inserting new insulin set: Occlusion, adhesive tape sensitivity, redness Check BG 2 hours after site change Safety information: Importance of a backup plan, for manual injections, proper prescriptions and emergency supplies ketone strips, and rules for testing for ketones Patient was able to insert insulin set today without difficulty. Patient understands the basic concepts of pump therapy, how to give insulin for meals and snacks, how to troubleshoot for hyper and hypoglycemia. Setting verified by CDCES, no changes to pump settings at today's visit Basal rate(s) (units/hour) : 12 AM? to 12 AM? 0.5 units / hr Bolus setting Insulin Carbohydrate Ratio (s) 12 AM? to 12 AM? 1:14 Correction Factor / Sensitivity Factor 12 AM? to 12 AM? 1:50 Active Insulin Time:? 4 hours Target(s): 12 AM? to 12 AM? 120 mg/dL Correction Threshold 130 mg/dL Patient Instructions: Patient will follow-up with Diabetes Education nurse in 2 months Coding Level of Care Code Est Pt Level 1 (53981) Diagnoses Diabetes mellitus E11.9
== END 2023-12-10 11:39 | disposition home or self-care (01) ==
PROVIDERS: PCP General Practice; Visit Provider Registered Nurse Diabetes Educator
DX: E11.9 Type 2 diabetes mellitus without complications (principal)

== ENCOUNTER 2023-12-28 11:08 | Outpatient (REF) | payer MEDICAID, SELFPAY ==
--- NOTE | ~2023-12-28 | MR_ITS ---
EXAMINATION: MR ABDOMEN WITHOUT AND WITH CONTRAST CLINICAL INFORMATION: Hepatomegaly COMPARISON: MR abdomen 01/25/2023 TECHNIQUE: MRI of the abdomen before and after the IV administration of 4.5 mL of Gadavist was obtained using routine sequences. FINDINGS: LUNG BASES: The visualized lung bases are unremarkable. KIDNEYS AND URETERS: Bosniak 1 bilateral renal cysts and bosniak 2 T1 bright left renal cyst, no follow-up imaging recommended. GALLBLADDER: Gallbladder wall thickening which may reflect sequelae of underlying liver disease. No cholelithiasis or other findings to suggest cholecystitis. LIVER AND BILIARY TREE: Cirrhotic morphology of the liver. Early arterial phase of contrast timing limits assessment for arterially hyperenhancing observations. Within limitations no suspicious liver lesion or LI-RADS 5 observation. No intra or extrahepatic biliary duct dilatation. PANCREAS: Unremarkable SPLEEN: Spleen is enlarged measuring 13.7 cm in span, previously 13.2 cm slightly increased from prior. T2 bright splenic cysts. ADRENAL GLANDS: Unremarkable GASTROINTESTINAL TRACT: Unremarkable. LYMPH NODES: No lymphadenopathy. VASCULAR: Periesophageal and perigastric varices. ABDOMINAL WALL: Unremarkable. OSSEOUS STRUCTURES: Unremarkable. OTHER: Trace ascites. MR/MR abdomen wo/w con IMPRESSION: 1. Cirrhotic morphology of the liver. Early arterial phase of contrast timing limits assessment for arterially hyperenhancing observations. Within limitations no suspicious liver lesion or LI-RADS 5 observation. 2. Sequelae of portal hypertension including splenomegaly, varices and trace ascites. 3. Gallbladder wall thickening which may reflect sequelae of underlying liver disease. No cholelithiasis or other findings to suggest cholecystitis.
[2023-12-28] MEDS: gadobutroL 7.5 ML VIAL IVPUSH (12:06)
== END 2023-12-28 11:09 | disposition home or self-care (01) ==
LOC: HO.MRI 11:08
PROVIDERS: PCP General Practice; Visit Provider Internal Medicine
DX: R16.0 Hepatomegaly, not elsewhere classified (principal); B19.20 Unspecified viral hepatitis C without hepatic coma
CPT/HCPCS: 74183; A9585

== ENCOUNTER 2024-02-13 14:07 | Outpatient (AMB) | payer MEDICAID, SELFPAY ==
[2024-02-13 14:11] VITALS: BP 138/88; PULSE 72; BMI 21.0
--- NOTE | 2024-02-13 14:11 | A.OFFVIS_ITS ---
Vital Signs 02/13/24 14:11 Height 5 ft 1 in Weight 110 lb 14.28 oz BMI 21.0 BP 138/88 Blood Pressure Location Rt brachial Position Sitting Pulse 72 Pulse Source Pulse Oximeter Intake Visit Reasons: T2DM Intake Note: Patient presents today to follow up on D2MT. 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 He has end- stage liver disease and cirrhosis Initially diagnosed with T2DM in 3 yrs . Was initially started on treatment with metformin . saw CDE today Current regimen Omnipod 5 Basal rate(s) (units/hour) : 12 AM? to 12 AM? 0.5 units / hr Bolus setting Insulin Carbohydrate Ratio (s) 12 AM? to 12 AM? 1:14 Correction Factor / Sensitivity Factor 12 AM? to 12 AM? 1:50 Active Insulin Time:? 4 hours Target(s): 12 AM? to 12 AM? 120 mg/dL Correction Threshold 130 mg/d Total daily dose of insulin 31.1 units, 44% basal with 56% bolus.. He is using the automated mode 100% of the time Dexcom download shows Patient's average glucose 151 mg/dL Patient above target 24% Patient at target 74% Patient below target 2% Reports low sugars rarely . Family history of T2DM in mother , father Type 2 DM . Has eyes checked yearly, last eye exam 5-6 mos a go , denies retinopathy. Denies neuropathy,Not sees podiatry. Denies nephropathy,Not on DOLORES/ARB. Has HLD, Not on statin. . Denies CAD. Not Had diabetes education. He was having difficulty obtaining Lyle as well as Lantus insulin and missed several doses. His point of care today's appointment is >400 PFSH Medical History Hepatitis C Cirrhosis Venereal warts HIV (human immunodeficiency virus infection) Diabetes mellitus Surgical History History of esophagogastroduodenoscopy (EGD) Family History Paternal Grandfather Colon cancer Social History Alcohol intake: current Alcohol intake frequency: holidays/special occasions only Patient Tobacco Use Status: Current everyday Tobacco user Tobacco use type: Cigarette Cigarettes Per Day: 4 Substance Use Type: IV Drugs Physical Exam Vital Signs: Last Vital Signs Pulse 72 02/13/24 14:11 BP 138/88 02/13/24 14:11 BMI result Body Mass Index 21.0 Absence of Cushingoid features. Absence of acromegalic features. Neck exam reveals nl size thyroid about 15 gms. No thyroid nodules palpable. No carotid bruits present. Lungs CTA. Heart S1 S2, Reg R/R. No M/R/ G. Skin exam reveals absence of vitiligo or acanthosis nigricans. Abdominal exam reveals Soft NT/ND with NA BS. No organomegaly present. Neck Other: . Extrem Other: Visual exam of foot performed. No ulcerations or open lesions. No onchomycosis, no callouses.Pulses 2 + distally Sensation intact to monofilament exam. Vibratory sensation sensed is intact with 128 Hz tuning fork Results AMB Hemoglobin A1c AMB Hemoglobin A1c 6.8 % Last Edit by NAKUL Valdez on 02/13/24 14:54 Results Reviewed Results Reviewed: Laboratory Last Values Glucose (Clinic) 163 mg/dL (60-115) H 02/13/24 14:45 Assessment & Plan Assessment & Plan (1) Diabetes mellitus: Comment: PCP: RECOMMEND Nutritional Supplement related to Cirrhosis: Ensure high protein once a day Code(s): E11.9 - Type 2 diabetes mellitus without complications Category: Medical Plan: This is a 53-year-old male with a history of type 2 diabetes in the setting of end-stage liver disease and cirrhosis being treated with ,Omnipod 5 pump with excellent improved glycemic control and no known microvascular or macrovascular complications. The plan is to continue the current regimen Orders: Orders AMB Hemoglobin A1c Today E11.9 - Type 2 diabetes mellitus without complications, Z13.9 - Encounter for screening, unspecified Coding Level of Care Code Est Pt Level 4 (62873) Diagnoses Diabetes mellitus E11.9
[2024-02-13 14:50] LABS: Glucose, Whole Blood 163 mg/dL (60-115)
== END 2024-02-13 15:07 | disposition home or self-care (01) ==
PROVIDERS: PCP General Practice; Referring Provider General Practice; Visit Provider Internal Medicine Endocrinology, Diabetes & Metabolism
DX: Z13.9 Encounter for screening, unspecified (principal); E11.9 Type 2 diabetes mellitus without complications
CPT/HCPCS: 99214

== ENCOUNTER 2024-02-13 14:07 | Outpatient (AMB) | payer MEDICAID, SELFPAY ==
--- NOTE | 2024-02-13 14:30 | MHC.AMDMED ---
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 Accompanied by: Self / Same As Patient Allergies No Known Allergies Allergy (Verified 02/13/24 14:43) HPI Comprehensive Diabetes Asmnt Most Recent Diabetes Results: Microalb/Creat Ratio 441.5 ug/mg cr 05/31/23 Cholesterol 160 mg/dL (<200) 11/14/23 HDL Cholesterol 59 mg/dL (>40) 11/14/23 Triglycerides 88 mg/dL (<150) 11/14/23 Creatinine 0.94 mg/dL (0.5-1.4) 12/05/23 Blood Urea Nitrogen 18 mg/dL (9-16) H 12/05/23 Sodium 140 mmol/L (135-145) 12/05/23 Potassium 4.3 mmol/L (3.3-5.1) 12/05/23 Chloride 108 mmol/L (96-108) 12/05/23 Carbon Dioxide 27 mmol/L (22-29) 12/05/23 Calcium 9.0 mg/dL (8.4-10.2) 12/05/23 AST 62 U/L (5-37) H 12/05/23 ALT 54 U/L (0-40) H 12/05/23 Total Protein 7.8 g/dL (6.5-8.0) 12/05/23 Albumin 3.3 g/dL (3.5-5.0) L 12/05/23 [facility]CLUDES [facility] Medical History Hepatitis C Cirrhosis Venereal warts HIV (human immunodeficiency virus infection) Diabetes mellitus Surgical History History of esophagogastroduodenoscopy (EGD) Family History Paternal Grandfather Colon cancer Social History (Updated 07/31/23 @ 14:11 by Elodia Vera MD) Alcohol intake: current Alcohol intake frequency: holidays/special occasions only Patient Tobacco Use Status: Current everyday Tobacco user Tobacco use type: Cigarette Cigarettes Per Day: 4 Substance Use Type: IV Drugs Assessment & Plan Assessment & Plan (1) T2DM (type 2 diabetes mellitus): Code(s): E11.9 - Type 2 diabetes mellitus without complications Plan: Patient presents for pump training for Omni Pod 5 pump and CGM training today. The following topics were reviewed today: -set up Omnipod 5 ling on patient's cellphone ??? High Alert: 200 mg/dl ??? Low Alert: 70 mg/dl Patient's average glucose 151 mg/dL Patient above target 24% Patient at target 74% Patient below target 2% Patient's glucose has improved significantly since initiation of Omnipod 5. Patient has had a few hypoglycemic events, however reports he knew that he had overestimated carbohydrate amounts. Patient treats hypoglycemia with fruit juice Discussed with patient some postprandial hyperglycemia after meals. At this time patient is not ready to make any adjustments to pump settings. Patient's last A1c was done at [facility], 7.2% on 12/14/2023 Also discussed HIP benefit which is part of his SNAP benefits Omnipod user ID: [id number] Password: [email or web address]! Instructed patient to only use room temperature insulin, how to load cartridge or fill pod, with insulin. Fill tubing and cannula (if applicable) Troubleshooting after starting new pod or inserting new insulin set: Occlusion, adhesive tape sensitivity, redness Check BG 2 hours after site change Safety information: Importance of a backup plan, for manual injections, proper prescriptions and emergency supplies ketone strips, and rules for testing for ketones Patient understands the basic concepts of pump therapy, how to give insulin for meals and snacks, how to troubleshoot for hyper and hypoglycemia. Setting verified by CDCES, no changes to pump settings at today's visit Pt has visit with Dr. Jones today Basal rate(s) (units/hour) : 12 AM? to 12 AM? 0.5 units / hr Bolus setting Insulin Carbohydrate Ratio (s) 12 AM? to 12 AM? 1:14 Correction Factor / Sensitivity Factor 12 AM? to 12 AM? 1:50 Active Insulin Time:? 4 hours Target(s): 12 AM? to 12 AM? 120 mg/dL Correction Threshold 130 mg/dL Coding Level of Care Code Est Pt Level 1 (64527) Diagnoses T2DM (type 2 diabetes mellitus) E11.9
== END 2024-02-13 15:07 | disposition home or self-care (01) ==
PROVIDERS: PCP General Practice; Visit Provider Registered Nurse Diabetes Educator
DX: E11.9 Type 2 diabetes mellitus without complications (principal)

== ENCOUNTER → 2024-02-13 14:07 | Outpatient (BNVA) | payer MEDICAID, SELFPAY | PROVIDERS: PCP General Practice; Visit Provider Internal Medicine Endocrinology, Diabetes & Metabolism | DX: E11.65 Type 2 diabetes mellitus with hyperglycemia (principal); E11.22 Type 2 diabetes mellitus with diabetic chronic kidney disease; N18.6 End stage renal disease; E78.5 Hyperlipidemia, unspecified; Z79.4 Long term (current) use of insulin; Z96.41 Presence of insulin pump (external) (internal); Z46.81 Encounter for fitting and adjustment of insulin pump | CPT/HCPCS: 82947; 83036; 99211; 99212 ==

== ENCOUNTER 2024-04-08 22:56 | Emergency (ER) | payer MEDICAID, SELFPAY ==
--- NOTE | ~2024-04-08 | CT_ITS ---
EXAMINATION: CT ABDOMEN AND PELVIS WITHOUT CONTRAST CLINICAL INFORMATION: Abdominal pain. COMPARISON: Abdominal MRI dated 12/28/[address] dated 01/24/2023 TECHNIQUE: Multidetector volumetric imaging was performed from the superior aspect of the liver through the pubic symphysis. Sagittal and coronal reformatted images were obtained on the technologist's workstation. This CT examination was performed using dose optimization techniques as appropriate, variously including the following: *Automated exposure control *Adjustment of mA and/or kV according to patient size (this includes techniques or standardized protocols for targeted exams where dose is matched to indication/reason for exam; i.e. extremities or head) *Use of iterative reconstruction technique DLP: 298 mGy-cm FINDINGS: LUNG BASES: Mild dependent atelectasis. There is fullness around the distal esophagus which could be due to esophageal distention or a small hiatal hernia. Paraesophageal varices are also suspected. LIVER, GALLBLADDER, AND BILIARY TREE: Subtle nodularity to the liver is again noted, though better seen on prior MRI. A small calcification is present within the left hepatic lobe. No focal hepatic lesions. The gallbladder is unremarkable with no evidence of radiopaque gallstones, gallbladder wall thickening, or obvious pericholecystic inflammatory changes. PANCREAS: Unremarkable. SPLEEN: Enlarged, measuring 15.5 cm in diameter. ADRENAL GLANDS: Unremarkable. KIDNEYS AND URETERS: The kidneys are normal in size, shape, and attenuation. No hydronephrosis, hydroureter, or calculi seen. No perinephric stranding. Again seen is a simple cyst in the right kidney. A subcentimeter hypodense cyst in the left kidney is better assessed on the prior MRI. No recommend imaging follow-up. Focal cortical scarring is suspected at the anterior margin of the right upper renal pole.. BLADDER: Unremarkable. GASTROINTESTINAL TRACT: Stomach, small bowel, and colon are normal in caliber. There is mild generalized colonic wall thickening, particularly at the ascending colon, transverse colon, and rectum, potentially due to portal hypertensive colopathy. Superimposed colitis cannot be excluded. Appendix is normal. No intracranial free air. No appreciable ascites. ABDOMINAL WALL: No significant hernia is appreciated. LYMPH NODES: No appreciable adenopathy, though sensitivity for adenopathy is somewhat limited by the extensive portosystemic collaterals within the retroperitoneum and central abdominal mesentery. 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 Portal systemic collaterals are also evident in the retroperitoneum, better seen on the prior MRI. PELVIC VISCERA: Unremarkable. OSSEOUS STRUCTURES: Mild osteoarthritis in both hips. 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 CT/CT abdomen pelvis wo IV con IMPRESSION: 1. Mild generalized colonic wall thickening, potentially due to portal hypertensive colopathy. Superimposed colitis cannot be excluded. 2. Cirrhosis with sequela of portal hypertension including splenomegaly and portosystemic collaterals. No ascites. Fleischner guidelines were followed.
[2024-04-08 22:58] VITALS: BP 130/82; PULSE 88; RESP 16; TEMP 36.7; O2SAT 99; BMI 21.0
[2024-04-08 23:28] LABS: MANUAL DIFF FLAG NO
[2024-04-08 23:29] LABS: Basophils Percent Auto 0.4 % (0-2); Eosinophils Absolute Auto 0.1 X10*3/uL (0.0-0.4); Eosinophils Percent Auto 0.7 % (0-4); Hematocrit 38.9 % (42.0-52.0); Hemoglobin 14.6 g/dl (14.0-18.0); Imm Gran Abs Auto 0.03 X10*3/uL (0.00-0.03); Imm Gran Pct Auto 0.4 % (0.0-0.4); Lymphocytes Absolute Auto 0.7 X10*3/uL (1.2-4.9); Lymphocytes Percent Auto 10.7 % (20-40); Mean Corpuscular HGB Conc 37.5 g/dl (31.0-36.0); Mean Corpuscular Hemoglobin 34.9 pg (27.0-33.0); Mean Corpuscular Volume 93.1 fL (80.0-98.0); Mean Platelet Volume 10.1 fL (9.4-12.4); Monocytes Absolute Auto 0.5 X10*3/uL (0.1-1.2); Monocytes Percent Auto 7.3 % (2-11); Neutrophils Absolute Auto 5.5 x10*3/uL (2.0-8.3); Neutrophils Percent Auto 80.5 % (45-73); Platelet Count 104 X10*3/uL (160-400); Red Blood Count 4.18 X10*6/uL (4.60-5.80); Red Cell Distribution Width 14.2 % (11.0-16.0); White Blood Count 6.8 X10*3/uL (4.8-10.8)
[2024-04-08 23:36] LABS: Appearance Urine Clear; Color Urine Yellow; Glucose Urine UA 100 mg/dL (Negative); Leukocyte Esterase Urine Negative (Negative); Nitrite Urine Negative (Negative); Specific Gravity - Urine 1.015 (1.005-1.025); UMIC TRIGGER UACC YES; Urine Blood Small (1+) (Negative); Urine Ketones Negative (Negative); Urine Protein 100 (2+) mg/dL (Neg-Trace)
[2024-04-08 23:43] LABS: Alanine Aminotransferase 50 U/L (0-40); Albumin Level 3.2 g/dL (3.5-5.0); Alkaline Phosphatase 133 U/L (39-117); Anion Gap 10 (12-20); Aspartate Amino Transferase 55 U/L (5-37); Bilirubin Total 1.4 mg/dL (0.0-1.0); Blood Urea Nitrogen 18 mg/dL (9-16); Calcium 8.4 mg/dL (8.4-10.2); Carbon Dioxide 24 mmol/L (22-29); Chloride 110 mmol/L (96-108); Creatinine Clr Calc Pharmacy 51.8; Estimated Glomerular Filt Rate > 60; Glucose Random 246 mg/dL (60-115); Lipase 47 U/L (8-78); Potassium 4.5 mmol/L (3.3-5.1); Sodium 139 mmol/L (135-145); Total Protein 7.3 g/dL (6.5-8.0)
[2024-04-08 23:44] LABS: Bacteria Urine None Seen (None Seen); Hyaline Casts Urine 0-2 /LPF (0-2); Squamous Epithelial Cell Urine 0-2 /HPF (0-2); WBC Urine 0-5 /HPF (0-5)
--- NOTE | 2024-04-08 23:53 | ED.ABDPAIN ---
HPI - Abdominal Pain General Chief Complaint: Abdominal Pain Stated Complaint: back pain Time Seen by Provider: 04/08/24 23:26 Source: patient Mode of arrival: ambulatory Limitations: no limitations History of Present Illness ED Provider: DR. Kaur HPI narrative: 53-year-old male with past medical history of decompensated cirrhosis, HCV, HIV, remote history of IV drug abuse. Came in complaining of abdominal pain for about 10 days pain is crampy, constant for the past 10 days but waxes and wanes, pain is associated with nausea but no vomiting. No fever, no chills, last bowel movement was this morning which is small and loose stool. No history of intra-abdominal surgery. Related Data Home Medications ?Medication ?Instructions ?Recorded ?Confirmed doxepin 25 mg capsule 25 mg PO BEDTIME 01/15/23 07/27/23 Previous Rx's ?Medication ?Instructions ?Recorded gabapentin 400 mg capsule 800 mg (2 x 400 mg) PO BID #120 10/02/22 caps paroxetine HCl 10 mg tablet (Paxil) 10 mg PO QPM #30 tabs 10/02/22 furosemide 20 mg tablet 40 mg (2 x 20 mg) PO QAM 30 days 10/27/22 #60 tabs bictegravir 50 mg-emtricitabine 1 tab PO DAILY 30 days #30 tabs 11/08/22 200 mg-tenofovir alafenam 25 mg tablet (Biktarvy) imiquimod 5 % topical cream packet 1 appl topical 3XW 14 days #12 ea 11/08/22 blood-glucose meter (FreeStyle #1 03/09/23 Lite Meter kit) glucagon 3 mg/actuation nasal 3 mg intranasal ONCE #2 03/09/23 spray (Baqsimi) lancets 28 gauge (FreeStyle #100 03/09/23 Lancets) insulin glargine 100 unit/mL (3 10 unit (0.1 mL) subcut QPM #15 mL 05/15/23 mL) subcutaneous pen (Lantus Solostar U-100 Insulin) carvedilol 3.125 mg tablet 6.25 mg (2 x 3.125 mg) PO BID #60 07/31/23 tabs insulin lispro 100 unit/mL 4 unit (0.04 mL) subcut TID #15 mL 08/06/23 subcutaneous pen atorvastatin 10 mg tablet 10 mg PO DAILY #90 tabs 08/27/23 blood-glucose sensor (FreeStyle #2 kits 09/17/23 Lyle 3 Sensor device) insulin pump cartridge,automated #1 ea 09/30/23 dose,BT with controller subcutaneous (Omnipod 5 G6 Intro Kit (Gen 5) subcutaneous cartridge with controller) insulin lispro 100 unit/mL See Rx Instructions subcut 10/18/23 subcutaneous solution (Humalog .COMPLEX #20 mL U-100 Insulin) blood-glucose transmitter (Dexcom #1 ea 11/05/23 G6 Transmitter device) insulin pump cart,automated,BT #5 ea 11/05/23 (Omnipod 5 G6 Pods (Gen 5) subcutaneous cartridge) blood sugar diagnostic (FreeStyle #100 strips 01/03/24 Lite Strips) blood-glucose sensor (Dexcom G6 #3 ea 03/18/24 Sensor device) Allergies Allergy/AdvReac Type Severity Reaction Status Date / Time No Known Allergies Allergy Verified 04/08/24 23:01 Review of Systems Review of Systems All other systems are reviewed and are negative Constitutional: Reports as per HPI and Reports no additional constitutional complaints Eyes: Reports as per HPI and Reports no additional eye complaints Reports system reviewed and no additional complaints, except as documented Cardiovascular: Reports as per HPI and Reports no additional cardiovascular complaints Respiratory: Reports as per HPI and Reports no additional respiratory complaints Gastrointestinal: Reports as per HPI and Reports no additional gastrointestinal complaints Genitourinary: Reports no additional female genitourinary complaints Musculoskeletal: Reports no additional musculoskeletal complaints Skin/Breast: Reports system reviewed and no additional complaints, except as docu Psychiatric: Reports no additional psychiatric complaints Endocrine: Reports no additional endocrine complaints Hematologic/Lymphatic: Reports no additional hematologic/lymphatic complaints Allergic/Immunologic: Reports no additional allergic/immunologic complaints Reports system reviewed and no additional complaints, except as documented and Reports Abnormal speech present [facility] Past Medical History Medical History Hepatitis C Cirrhosis Venereal warts HIV (human immunodeficiency virus infection) Diabetes mellitus Surgical History History of esophagogastroduodenoscopy (EGD) Family History Family History Paternal Grandfather Colon cancer Social History Social History Alcohol intake: former Patient Tobacco Use Status: Current everyday Tobacco user Tobacco use type: Cigarette Cigarettes Per Day: 4 Smoked in Last 30 Days: No Use of substances other than those prescribed or required for medical reasons: No Substance Use Type: IV Drugs Advance Directives: No Advance Directives Information Provided: No Do you have a plan to hurt others: No Plan Physical Exam ED Vital Signs: Vital Signs - 24 hr 04/08/24 22:58 Temperature 98.0 F Pulse Rate 88 Respiratory Rate 16 Blood Pressure 130/82 Pulse Oximetry 99 Oxygen Delivery Method Room Air BMI result Body Mass Index 21.0 Vital signs have been reviewed and appear to be correct. Blood pressure elevated. Heart rate normal. Respiratory rate normal. Temperature normal. Oxygen saturation normal. Appearance: Alert. Oriented X3. No acute distress. Head: Normal external exam. Normocephalic. Atraumatic. No Baires signs noted. No raccoon eyes noted Eyes: PERRLA. EOMI. Conjunctiva and sclera normal. Eyelids normal. ENT: TM's Normal. Pharynx normal. Uvula midline. Moist mucous membranes. No trismus noted. No drooling noted. No muffled voice noted. Neck: Normal inspection. Neck supple. FROM. No adenopathy. Thyroid Normal. No meningeal signs. No neck mass noted. CVS: Normal heart rate and rhythm. Heart sound normal. No murmurs noted. Pulses normal throughout. Respiratory: No respiratory distress. Painless inspiration. Breath sounds normal. No wheezes/rales/rhonchi noted. Chest nontender. No accessory muscle usage noted or decreased air movement noted. Abdomen: Soft and nontender. Bowel sounds normal in all 4 quadrants. No distention noted. No organomegaly noted. No visible injury noted. Back: No CVA tenderness. Full range of motion noted. Skin: Skin warm and dry. Normal skin color. Normal skin turgor. No rashes/lesions/lacerations noted. Extremities: No lower extremity edema. Extremities exhibit normal range of motion. Extremities nontender. Neuro: Oriented X 3. Cranial nerve exam: II-XII are grossly intact No motor deficit. No sensory deficit. Reflexes normal. Course Reevaluation(s) Reevaluation #1: 53-year-old female with abdominal pain, had to times of nonbloody watery diarrhea, CT is raising concern of colitis, no nausea, no vomiting. Unremarkable labs, will discharge to follow-up with GI. Colitis patient was instructed to drink plenty of fluids take NSAIDs if needed for pain. Time: 01:58 Medical Decision Making Differential Diagnosis Differential Diagnoses: The differential diagnosis associated with the presentation includes (Ascites, colitis, diverticulitis, acute appendicitis, pancreatitis, gastritis, electrolyte derangement, severe anemia.) Admission/Observation Consideration of admission/observation: Escalation of care including admission/observation considered Lab Data MDM Lab Attestation statement: I reviewed the patient's lab results. 04/08/24 23:21 04/08/24 23:21 Labs: Lab Results 04/08/24 Range/Units 23:21 WBC 6.8 (4.8-10.8) X10*3/uL RBC 4.18 L (4.60-5.80) X10*6/uL Hgb 14.6 (14.0-18.0) g/dl Hct 38.9 L (42.0-52.0) % MCV 93.1 (80.0-98.0) fL MCH 34.9 H (27.0-33.0) pg MCHC 37.5 H (31.0-36.0) g/dl RDW 14.2 (11.0-16.0) % Plt Count 104 L D (160-400) X10*3/uL MPV 10.1 (9.4-12.4) fL Immature Gran % (Auto) 0.4 (0.0-0.4) % Neut % (Auto) 80.5 H (45-73) % Lymph % (Auto) 10.7 L (20-40) % Murray % (Auto) 7.3 (2-11) % Eos % (Auto) 0.7 (0-4) % Baso % (Auto) 0.4 (0-2) % Lymph # (Auto) 0.7 L (1.2-4.9) X10*3/uL Murray # (Auto) 0.5 (0.1-1.2) X10*3/uL Eos # (Auto) 0.1 (0.0-0.4) X10*3/uL Baso # (Auto) 0.0 (0.0-0.2) X10*3/uL Abs Immat Gran (auto) 0.03 (0.00-0.03) X10*3/uL Absolute Neuts (auto) 5.5 (2.0-8.3) x10*3/uL Absolute Nucleated RBC 0.000 (0.0-0.012) X10*3/uL Nucleated RBC % (auto) 0.0 (0.0-0.2) /100WBC Sodium 139 (135-145) mmol/L Potassium 4.5 (3.3-5.1) mmol/L Chloride 110 H (96-108) mmol/L Carbon Dioxide 24 (22-29) mmol/L Anion Gap 10 L (12-20) BUN 18 H (9-16) mg/dL Creatinine 1.19 (0.5-1.4) mg/dL Estim Creat Clear Calc 51.8 Estimated GFR > 60 Random Glucose 246 H (60-115) mg/dL Calcium 8.4 D (8.4-10.2) mg/dL Total Bilirubin 1.4 H (0.0-1.0) mg/dL AST 55 H (5-37) U/L ALT 50 H (0-40) U/L Alkaline Phosphatase 133 H (39-117) U/L Total Protein 7.3 (6.5-8.0) g/dL Albumin 3.2 L (3.5-5.0) g/dL Lipase 47 (8-78) U/L Urine Color Yellow Urine Appearance Clear Urine pH 6.0 (5.0-9.0) Ur Specific [place] 1.015 (1.005-1.025) Urine Protein 100 (2+) H (Neg-Trace) mg/dL Urine Glucose (UA) 100 H (Negative) mg/dL Urine Ketones Negative (Negative) mg/dL Urine Blood Small (1+) H (Negative) Urine Nitrite Negative (Negative) Ur Leukocyte Esterase Negative (Negative) Urine RBC 3-5 H (0-2) /HPF Urine WBC 0-5 (0-5) /HPF Ur Squamous Epith Cells 0-2 (0-2) /HPF Urine Bacteria None Seen (None Seen) Hyaline Casts 0-2 (0-2) /LPF Independent Interpretation I performed an independent interpretation of an: CT Scan (Abdomen and pelvis:1. Mild generalized colonic wall thickening, potentially due to portal hypertensive colopathy. Superimposed colitis cannot be excluded. 2. Cirrhosis with sequela of portal hypertension including splenomegaly and portosystemic collaterals. No ascites. Fleischner guidelines were) Radiology Impression Discussion of test interpretation with radiology: I have reviewed the radiologist's reading. Chronic Conditions Patient?s care impacted by: Other (Liver cirrhosis, HIV.) Discharge Plan Discharge Clinical Impression: Colitis Prescriptions: No Action insulin glargine [Lantus Solostar U-100 Insulin] 100 unit/mL (3 mL) insulin pen 10 unit subcut QPM Qty: 15 5RF insulin lispro 100 unit/mL insulin pen 4 unit subcut TID Qty: 15 4RF atorvastatin 10 mg tablet 10 mg PO DAILY Qty: 90 4RF (DME) FreeStyle Lyle 3 Sensor Device See Rx Instructions .ROUTE .COMPLEX Qty: 2 0RF Dose Instruction: Use as directed, change every 14 days Rx Instructions: Use as directed, change every 14 days (DME) Omnipod 5 G6 Intro Kit (Gen 5) Cartridge See Rx Instructions .Route Qty: 1 0RF Rx Instructions: As directed insulin lispro [Humalog U-100 Insulin] 100 unit/mL solution See Rx Instructions subcut .COMPLEX Qty: 20 4RF Rx Instructions: Infuse up to 50 units per day via insulin pump subcutaneously; (DME) Dexcom G6 Transmitter Device See Rx Instructions .Route Qty: 1 4RF Rx Instructions: As directed (DME) Omnipod 5 G6 Pods (Gen 5) Cartridge See Rx Instructions .Route Qty: 5 4RF Rx Instructions: As directed change every 72 hrs (DME) FreeStyle Lite Strips Strip See Rx Instructions .ROUTE .COMPLEX Qty: 100 5RF Dose Instruction: DIRECTED-CHECKS 4 X/DAY Rx Instructions: DIRECTED-CHECKS 4 X/DAY (DME) Dexcom G6 Sensor Device See Rx Instructions .ROUTE .COMPLEX Qty: 3 5RF Dose Instruction: DIRECTED CHANGE EVERY 10 DAYS Rx Instructions: DIRECTED CHANGE EVERY 10 DAYS gabapentin 400 mg capsule 800 mg PO BID Qty: 120 2RF paroxetine HCl [Paxil] 10 mg tablet 10 mg PO QPM Qty: 30 2RF carvedilol 3.125 mg tablet 6.25 mg PO BID Qty: 60 2RF Rx Instructions: must administer with a meal/food furosemide 20 mg tablet 40 mg PO QAM 30 Days Qty: 60 2RF doxepin 25 mg capsule 25 mg PO BEDTIME imiquimod 5 % cream in packet 1 appl topical 3XW 14 Days Qty: 12 2RF Biktarvy 50-200-25 mg tablet 1 tab PO DAILY 30 Days Qty: 30 0RF (DME) blood-glucose meter [FreeStyle Lite Meter] Kit See Rx Instructions .Route Qty: 1 0RF Rx Instructions: As directed (DME) lancets [FreeStyle Lancets] 28 gauge misc See Rx Instructions .Route Qty: 100 4RF Rx Instructions: As directed checks 4 X/day Baqsimi 3 mg/actuation spray,non-aerosol 3 mg intranasal ONCE Qty: 2 4RF Print Language: Amharic
[2024-04-09 02:36] VITALS: BP 129/75; PULSE 88; RESP 16; TEMP 36.7; O2SAT 98
== END 2024-04-09 02:37 | disposition home or self-care (01) ==
PROVIDERS: Emergency Provider Emergency Medicine
DX: K52.9 Noninfective gastroenteritis and colitis, unspecified (principal); R10.2 Pelvic and perineal pain; Z79.899 Other long term (current) drug therapy
CPT/HCPCS: 36415; 74176; 80053; 81001; 83690; 85025; 99284

== ENCOUNTER 2024-04-21 13:29 | Outpatient (REF) | payer MEDICAID, SELFPAY | END 2024-04-21 13:30 | disposition home or self-care (01) | LOC: HO.HHCL 13:29 | PROVIDERS: Visit Provider General Practice | DX: Z13.89 Encounter for screening for other disorder (principal) ==

== ENCOUNTER 2024-05-15 14:57 | Outpatient (AMB) | payer MEDICAID, SELFPAY ==
--- NOTE | 2024-05-15 15:01 | A.OFFVIS_ITS ---
Vital Signs 05/15/24 15:02 Height 5 ft 1 in Weight 110 lb 3.698 oz BMI 20.8 BP 122/76 Blood Pressure Location Rt brachial Pulse 82 Pulse Source Pulse Oximeter Intake Visit Reasons: T2DM on a pump/CONFIRMED Intake Note: Patient presents today to re-establish treatment for Type 2 Diabetes Mellitus: Last Diabetic Eye exam: DUE Last Podiatry Exam: Does not see a Fur Sewer Most recent HbA1c: 6.8%, 02/13/2024 Random Glucose- 62mg/dL, 03:05 PM, re-check 3:23 PM, 102mg/dL Server Administrator Required: No Accompanied by: Self / Same As Patient Allergies No Known Allergies Allergy (Verified 05/15/24 15:08) HPI Comments Details: The patient is a type 2 diabetic on an insulin pump started over the last year. He was last seen by both Dr. Jones and Heidy LAGUERRE in February of this year. A1C was 6.8% in February. He is doing well on Omnipod pump with G6 but would like to convert to a G7. He is going to have dental surgery sometime over the next month. This will be an outpatient procedure. The last time he did this he took his pump off before he went to bed and took 10 units of Lantus. When he r estarted the pump after surgery he did not use temporary basal G6 sensor average glucose: [ 148] TIme in range: [ 0] % very high (above 250) 0 % high (181-250) One hundred % in range (70-180] 0 % low (69-55) 0 % very low (below 54) Insulin settings confirmed at today's visit 12 AM? to 12 AM? 0.5 units / hr Bolus setting Insulin Carbohydrate Ratio (s) 12 AM? to 12 AM? 1:14 Correction Factor / Sensitivity Factor 12 AM? to 12 AM? 1:50 Active Insulin Time:? 4 hours Target(s): 12 AM? to 12 AM? 120 mg/dL Correction Threshold 130 mg/dL Family history of T2DM in mother , father Type 2 DM . Has eyes checked yearly, last eye exam 9 mos a go , denies retinopathy. Denies neuropathy,Not sees podiatry. Denies nephropathy,Not on DOLORES/ARB. Has HLD, Not on statin. . Denies CAD. [facility] Medical History (Updated 05/15/24 @ 16:09 by Cathryn Gregory NP) Diabetes mellitus type 2, uncomplicated, on rougher for cement insulin pump Hepatitis C Cirrhosis Venereal warts HIV (human immunodeficiency virus infection) Diabetes mellitus Surgical History History of esophagogastroduodenoscopy (EGD) Family History Paternal Grandfather Colon cancer Social History Alcohol intake: former Patient Tobacco Use Status: Current everyday Tobacco user Tobacco use type: Cigarette Cigarettes Per Day: 4 Substance Use Type: IV Drugs Physical Exam Vital Signs: Last Vital Signs Pulse 82 05/15/24 15:02 BP 122/76 05/15/24 15:02 BMI result Body Mass Index 20.8 Const General: cooperative Nutritional Appearance: thin Orientation/consciousness: patient oriented x3 Limitations: no limitations Resp Effort & Inspection: normal respiratory effort Neuro General: patient oriented x3 Extrem Other: Visual exam of foot performed. No ulcerations or open lesions. No onchomycosis, no callouses. Sensation intact to monofilament exam. Vibratory sensation is normal with 128 Hz tuning fork. Results Reviewed Results Reviewed: Laboratory Last Values Glucose (Clinic) 102 mg/dL (60-115) 05/15/24 15:25 Laboratory Tests 11/01/22 05/31/23 09/25/23 11:14 11:06 08:18 Plt Count Potassium BUN Creatinine Estim Creat Clear Calc Estimated GFR Calcium 8.6 AST ALT Alkaline Phosphatase Triglycerides Cholesterol LDL Cholesterol, Calc HDL Cholesterol Lipase 25-OH Vitamin D Total 17.7 Urine Creatinine 35.33 Urine Microalbumin 156.0 Microalb/Creat Ratio 441.5 11/14/23 12/05/23 04/08/24 09:37 11:28 23:21 Plt Count 104 L D Potassium 4.5 BUN 18 H Creatinine 1.19 Estim Creat Clear Calc 51.8 Estimated GFR > 60 Calcium 9.0 8.4 D AST 55 H ALT 50 H Alkaline Phosphatase 133 H Triglycerides 88 Cholesterol 160 LDL Cholesterol, Calc 84 HDL Cholesterol 59 Lipase 47 25-OH Vitamin D Total Urine Creatinine Urine Microalbumin Microalb/Creat Ratio Assessment & Plan Assessment & Plan (1) Diabetes mellitus type 2, uncomplicated, on rougher for cement insulin pump: Code(s): E11.9 - Type 2 diabetes mellitus without complications; Z96.41 - Presence of insulin pump (external) (internal) Category: Medical Plan: 53-year-old diabetic male on insulin pump with excellent A1c. No changes to pump setting were done today. Advised prior to dental surgery take 10 units of Lantus late in the evening come off pump restart after surgery on a temporary basal he will return to clinic for G7 training and review of temp basal. I was unable to do this today as he did not have a pods on him. In the clinic he did have a mild low which came back up to normal with a 3rd of a can of tea mccarty, Patient teaching: The patient was counseled to always carry a source of sugar and on the rule of 15's: Take 3 glucose tablets and repeat again in 15 minutes if blood sugar is not in normal range. Continue to repeat every 15 minutes until blood sugar is normal. Symptoms of DKA were reviewed: early: frequent urination, dry mouth, ketones in the urine, severe symptoms: abdominal pain, nausea, vomiting and weakness. It is important to hydrate with sugar free liquids every 30 minutes and bring the sugars down to normal levels. High glucose/pump failure protocol. May need some review of this at next visit Orders: Orders Glutamic acid decarboxylase Ab 1 Week E11.9 - Type 2 diabetes mellitus without complications Islet Cell Antibody Scrn/Titer 1 Week E11.9 - Type 2 diabetes mellitus without complications Medications: New acetone (urine) test (Ketone Urine Test strips) As directed prn tid for sugar above 250 or nausea/vomiting 50 ea 1RF blood-glucose sensor (Dexcom G7 Sensor device) As directed every 10 days 3 ea 11RF pen needle, diabetic (Comfort EZ Pen [place]) As directed for prn use with in sulin tid 50 ea 1RF E11.9 - Type 2 diabetes mellitus without complications glucagon 3 mg/actuation (Baqsimi) 3 mg intranasal ONCE 30 days PRN 2 ea 1RF prn low glucose and unconsious E11.9 - Type 2 diabetes mellitus without complications Refilled glucagon 3 mg/actuation (Baqsimi) 3 mg intranasal ONCE 2 ea 4RF insulin glargine (Lantus Solostar U-100 Insulin) 10 units (0.1 mL) subcut QPM 15 mL 5RF Discontinued blood-glucose sensor (FreeStyle Lyle 3 Sensor device) Discontinued Reason: Doctor's Order Use as directed, change every 14 days 2 kits 0RF Coding Level of Care Code Est Pt Level 5 (47522) Complex EM visit Add On G2211 Diagnoses Diabetes mellitus type 2, uncomplicated, on fci insulin pump E11.9; Z96.41 Time Spent (min) 45 Comment Time spent reviewing labs/previous provider notes, face to face, chart documentation
[2024-05-15 15:02] VITALS: BP 122/76; PULSE 82; BMI 20.8
[2024-05-15 15:15] LABS: Glucose, Whole Blood 62 mg/dL (60-115)
[2024-05-15 15:29] LABS: Glucose, Whole Blood 102 mg/dL (60-115)
== END 2024-05-15 15:43 | disposition home or self-care (01) ==
PROVIDERS: Visit Provider Nurse Practitioner Adult Health
DX: E11.9 Type 2 diabetes mellitus without complications (principal); Z96.41 Presence of insulin pump (external) (internal)
CPT/HCPCS: 99215

== ENCOUNTER → 2024-05-15 14:57 | Outpatient (BNVA) | payer MEDICAID, SELFPAY | PROVIDERS: Visit Provider Nurse Practitioner Adult Health | DX: E11.9 Type 2 diabetes mellitus without complications (principal); Z96.41 Presence of insulin pump (external) (internal) | CPT/HCPCS: 82947; 99212 ==

== ENCOUNTER 2024-05-20 13:31 | Outpatient (AMB) | payer MEDICAID, SELFPAY ==
--- NOTE | 2024-05-20 13:31 | MHC.OFFVIS ---
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 Pt states he will sometimes get numbness and tingling in his toes. Pt denies wearing any compression stockings. 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 Complaints include pain over varicosities, swelling of lower extremities, cramping, fatigue, and heaviness of the lower extremities. It has been affecting there daily activities including ambulation. It is noted more so in left leg. Of note he does have a prior history of cirrhosis of the liver and hepatitis-C. In addition he does have a history of HIV. He reports that he does smoke about 3-4 cigarettes daily and he is a diabetic. Patient denies any previous venous surgery or injections. Patient denies any history of DVT/ PE. Patient denies any history of phlebitis. Trial of compression includes - [id number] They now present for vascular evaluation regarding their varicose veins. [facility] Medical History Diabetes mellitus type 2, uncomplicated, on senior care insulin pump Hepatitis C Cirrhosis Venereal warts HIV (human immunodeficiency virus infection) Diabetes mellitus Surgical History History of esophagogastroduodenoscopy (EGD) Family History Paternal Grandfather Colon cancer Social History Alcohol intake: former Patient Tobacco Use Status: Current everyday Tobacco user Tobacco use type: Cigarette Cigarettes Per Day: 4 Substance Use Type: IV Drugs Review of Systems Const Reports as per HPI ENT Reports no additional complaints Card Denies chest pain, Denies chest pain at rest and Denies chest pain with activity Resp Denies chest congestion and Denies cough GI Reports no additional complaints Musc Details: pain over varicosities, aching of lower extremities, swelling, cramping, heaviness and tiredness, itching Denies abnormal gait Skin/Breast Reports pruritus and Denies wounds Neuro Reports no additional complaints and Denies abnormal gait Psych Denies no additional complaints Physical Exam Vital Signs: Last Vital Signs BP 108/60 05/20/24 13:35 BMI result Body Mass Index 20.8 Const General: cooperative, healthy appearing and comfortable Orientation/consciousness: oriented to person, oriented to place and oriented to time Neck Carotids: no bruits Chest Chest palpation & inspection: normal inspection of the chest and normal palpation of entire chest wall Resp Effort & Inspection: normal respiratory effort and able to speak in complete sentences Cardio Rate: regular rate Heart sounds: S1 normal heart sound present and S2 normal heart sound present Peripheral pulses: Peripheral pulses 2+ throughout GI Inspection: Yes normal to inspection Skin Other: +2 edema, CEAP Classification C4 - skin color changes Ep - Etiology Primary As - superficial veins P - reflux General skin exam: dry skin Neuro General: oriented to person, oriented to place and oriented to time Extrem Right lower extremity: full ROM, normal capillary refill and edema Left lower extremity: full ROM, normal capillary refill and edema Psych Mental Status: mental status grossly normal Assessment & Plan Assessment & Plan (1) Varicose veins of left lower extremity with inflammation: Code(s): I83.12 - Varicose veins of left lower extremity with inflammation Category: Medical Plan: In short, the patient has evidence of venous insufficiency. I have discussed the pathophysiology with the patient. In addition I have provided informational material regarding venous disease to the patient. We have discussed conservative measures including compression, elevation, and exercise. I have also provided a handout regarding appropriate use of compression stockings and where to purchase good compression stockings as well. I have taken the liberty of ordering venous insufficiency testing with the patient. They will follow up with me after testing. The patient had an opportunity to ask questions regarding the treatment plan. All questions were answered. Imaging studies, laboratory studies and physical exam results were discussed and reviewed in detail. No major barriers to understanding were identified. The patient expressed understanding and agreement with the above treatment plan. The patient is aware they should contact our office by phone for worsening of the current condition or the appearance of new symptoms. Thank you for allowing me to participate in the vascular care of this patient. If you have any questions or concerns regarding the treatment for the above condition please do not hesitate to contact me. The office telephone contact is [phone]. This note is constructed using voice recognition software. While every effort has been made to ensure accuracy, medical office receptionist assistant errors may have been included. Thank you for allowing me to participate in the care of your patient. Yours sincerely, Jerry Courtney MD, FACS, R.P.V.I. Orders: Orders US venous duplex LE BI 1 Week I83.12 - Varicose veins of left lower extremity with inflammation Coding Level of Care Code Est Pt Level 4 (76484) Diagnoses Varicose veins of left lower extremity with inflammation I83.12
[2024-05-20 13:35] VITALS: BP 108/60; BMI 20.8
== END 2024-05-20 13:56 | disposition home or self-care (01) ==
PROVIDERS: PCP General Practice; Referring Provider General Practice; Visit Provider Surgery Vascular Surgery
DX: I83.12 Varicose veins of left lower extremity with inflammation (principal)
CPT/HCPCS: 99214

== ENCOUNTER → 2024-05-20 13:31 | Outpatient (BNVA) | payer MEDICAID, SELFPAY | PROVIDERS: PCP General Practice; Visit Provider Surgery Vascular Surgery | DX: I83.12 Varicose veins of left lower extremity with inflammation (principal) | CPT/HCPCS: 99212 ==

== ENCOUNTER 2024-05-26 13:18 | Outpatient (REF) | payer MEDICAID, SELFPAY ==
[2024-05-26 14:24] LABS: Alanine Aminotransferase 38 U/L (0-40); Albumin Level 3.1 g/dL (3.5-5.0); Alkaline Phosphatase 116 U/L (39-117); Anion Gap 13 (12-20); Aspartate Amino Transferase 48 U/L (5-37); Bilirubin Total 1.4 mg/dL (0.0-1.0); Blood Urea Nitrogen 14 mg/dL (9-16); Calcium 8.5 mg/dL (8.4-10.2); Carbon Dioxide 25 mmol/L (22-29); Chloride 106 mmol/L (96-108); Estimated Glomerular Filt Rate > 60; Glucose Random 114 mg/dL (60-115); Potassium 4.3 mmol/L (3.3-5.1); Sodium 140 mmol/L (135-145)
[2024-05-26 16:19] LABS: CT PCR NOT DETECTED (Not Detect.); NG PCR NOT DETECTED (Not Detect.)
[2024-05-27 08:32] LABS: Hepatitis A Antibody IgG REACTIVE (Nonreactive); ~Hepatitis A Antibody IgG 11.08 S/CO (0.00-0.99)
[2024-05-27 08:40] LABS: HBc Num1 4.54 S/CO (0.00-0.79); HBsAGNum1 0.33 S/CO (0.00-0.99); Hepatitis B Surface Antigen Negative (Negative)
[2024-05-27 10:39] LABS: HBS Num2 13.17 mIU/mL (0-7.99)
[2024-05-27 10:40] LABS: HBS Num3 11.28 mIU/mL (0-7.99); HBc Num2 4.84 S/CO; HBc Num3 4.56 S/CO; Hepatitis B Core Antibody Reactive (Nonreactive); ~Hepatitis B Surface Antibody GRAYZONE (Nonreactive)
[2024-05-28 10:13] LABS: Hepatitis B Core Antibody IgM NON-REACTIVE (NON-REACTIVE)
[2024-05-29 08:27] LABS: HIV RNA PCR Qn Copies NOT DETECTED copies/mL (NOT DETECTED); HIV RNA PCR Qn Log Copies NOT DETECTED (NOT DETECTED)
[2024-05-29 22:09] LABS: Glutamic acid decarboxylase Ab <5 IU/mL (<5)
[2024-05-31 15:17] LABS: TS Negative Control PASSED; TS Panel A 3; TS Panel B 0; TSpotTB NEGATIVE
[2024-05-31 15:18] LABS: TS Positive Control PASSED
[2024-06-09 00:28] LABS: Islet Cell Antibody Screen NEGATIVE (NEGATIVE)
== END 2024-05-26 13:19 | disposition home or self-care (01) ==
LOC: HO.LAB 13:18
PROVIDERS: Nurse Practitioner Adult Health; PCP General Practice; Visit Provider Internal Medicine
DX: B20 Human immunodeficiency virus [HIV] disease (principal); E11.9 Type 2 diabetes mellitus without complications; B18.2 Chronic viral hepatitis C; R76.8 Other specified abnormal immunological findings in serum; R16.0 Hepatomegaly, not elsewhere classified; Z79.899 Other long term (current) drug therapy; K74.60 Unspecified cirrhosis of liver; Z79.2 Long term (current) use of antibiotics
CPT/HCPCS: 36415; 80053; 86341; 86481; 86704; 86705; 86706; 86708; 87340; 87491; 87536; 87591; 99212

== ENCOUNTER 2024-05-26 14:00 | Outpatient (AMB) | payer MEDICAID, SELFPAY ==
--- NOTE | 2024-05-26 14:55 | MHC.OFFVIS ---
Vital Signs 05/26/24 14:56 Height 5 ft 1 in Weight 108 lb 0.424 oz BMI 20.4 BP 115/63 Blood Pressure Location Rt brachial Position Sitting Pulse 62 Intake Visit Reasons: 3 month f/u Intake Note: Jamal presents in the office as a 3 month follow up. CC: Stomach full of bloating. Allergies No Known Allergies Allergy (Verified 05/26/24 15:04) HPI Comments Details: 52 y.o M with PMH of decompensated cirrhosis (ascites, HE), HCV, HIV on Biktarvy x 6 years, who is here to establish care. Accompanied by nephew Naeem. 10/27/22: Moved from [place] a month ago. 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 Reports being told about HCV almost 20 years ago. Thinks may be was sexually transmitted, reports remote hx of IVDU. Not aware of hepatitis status of family/first degree relatives. Drinks etOH socially may be 2-3 times a year. Former smoker. Was diagnosed with cirrhosis almost 11 months ago when he developed ascites. Has been on lasix 20mg and spironolactone 50mg since then. Often has to get paracentesis every week. Also had an admission for hepatic encephaloapthy a few months ago and now takes lactulose, although does report that is not taking it daily. Had an EGD in April/May 2022 - had small varices. Has been on coreg since then. Never had a colonoscopy. Last ultrasound was may be 3-4 months ago, not aware of findings. Also has concurrent HIV, on Biktarvy through dept of public health. 11/28/22: Took spironolactone for only 3 weeks before he started noticing breast tenderness and enlargement so he discontinued the medication. However, when he was taking the medication, notice significant improvement in his ascites. Has not started watching his salt intake yet. Today, he also mentions that almost a year ago, when he was incarcerated, he was found to have a 2.5 cm spot on his liver. He was initially told this could be cancer. He then underwent a biopsy. However, does not recall what he was told. Also does not recall getting any treatment including resection, locoregional or systemic therapy. This is the first time pt brought up this information. Pt insists he did report this to the ER provider who referred him to GI however I do not see any previous documentation. Has been seen by ID for HIV, continues on biktarvy. 01/02/23 US Abd: 1. Heterogeneous liver with a 1.6 cm mass adjacent to the gallbladder fossa. MRI is recommended for further evaluation. 2. Thickened gallbladder wall with fluid in the wall and gallbladder polyp. Please correlate clinically. 01/15/23: Records were reviewed from [facility]. Was admitted in the hospital August 2022 for altered mental status and found to have 5 cm liver mass 5 cm on MRI. A liver biopsy was completed how inadequate sample was obtained. Repeat IR guided biopsy was not pursued due to necrosis. Plan was for interval AFP and MRI. He was not deemed a transplant candidate by that facility due to relapse of substance use and poor social support. Today, going for his MRI after this appt. Main complaint is unchanged which is R sided abd pain that goes to both his flanks, intermittent, cramping in nature. Otherwise, no nausea, vomiting, changes in appetite, or stool. Has been taking his Lasix and amiloride. Due for blood work. Salt restriction remains a barrier although patient has been trying to limit Na intake as much as possible. Remains abstinent from substance use x more than 2 years. EtOH use limited to 2-3 times a year. MRI 01/25/23: *? Cirrhotic liver, varices and splenomegaly. *? No imaging evidence of hepatocellular carcinoma. *? Compared to prior MRI from 08/26/2022, there has been resolution of the complex rim-enhancing lesion of segment 4 that previously measured up to approximately 5 cm. Instead, this follow-up MRI shows a small 0.8 cm focus of intrinsic T1 signal shortening from blood products or proteinaceous material at the site of the suspected abscess. No interval development of a hyperenhancing liver lesion or lymphadenopathy.? 03/28/23: No acute issues today. Feels that ascites is pretty much gone despite some nondiscretion with dietary salt. Has not had any confusional spells so he has reduced lactulose to 3-4 times per week. Energy levels are good. No report of abd pain, N,V, fatigue. MRI results were already relayed to him. 07/31/23: EGD/colo: 1. Esophageal varices (banding) 2. Portal hypertensive gastropathy 3. Portal hypertensive duodenopathy 4. Normal colon and terminal ileum mucosa 5. Total of 3 polyps removed 6. Medium internal hemorrhoids Path: A. Duodenum, biopsy: Duodenal mucosa with preserved villi and no specific change. B. Colon, transverse, polyps: Tubular adenoma, one; negative for high-grade dysplasia and carcinoma. C. Colon, sigmoid, polyp: Consistent with hyperplastic polyp 11/30/23: Here for follow up after his EGD/colo as well as completion of HCV tx. Has been doing well. No gastrointestinal complaints. No abd distention. Does not report trouble concentrating. No N/V/D. No blood in stool. Not completely adherent to salt restriction but has also not noticed any increase in abd girth. Reports good energy levels. Completed Epclusa 09/2023. Due for SVR12 labs. Last MRI was January 2023 - overdue for repeat imaging. Current meds: Carvedilol 6.25 BID Furosemide 20 once daily 05/26/24: Doing well from cirrhosis standpoint. HCV tx completed s/p SVR 12 in nov 2023. Currently no gastrointestinal complaints. Recently had dental work done so still has significant facial pain. Was prescribed Abx but did not take them yet. Labs reviewed and reassuring. Due for abd imaging for HCC screening. 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 Hepatitis C Cirrhosis Venereal warts HIV (human immunodeficiency virus infection) Diabetes mellitus Surgical History (Updated 05/26/24 @ 15:05 by NAKUL Ferrell) Hx of oral surgery History of esophagogastroduodenoscopy (EGD) Family History Paternal Grandfather Colon cancer Social History Alcohol intake: former Patient Tobacco Use Status: Current everyday Tobacco user Tobacco use type: Cigarette Cigarettes Per Day: 4 Substance Use Type: IV Drugs Review of Systems Const All systems reviewed & are unremarkable except as noted in HPI and below Physical Exam Vital Signs: Last Vital Signs Pulse 62 05/26/24 14:56 BP 115/63 05/26/24 14:56 BMI result Body Mass Index 20.4 Gen appear: No acute distress HEENT: no icterus, no cervical lymphadenopathy, temporal wasting Chest: No overt resp distress CVS: S1/S2, regular Abd: soft, non distended, no shifting dullness to percussion Psych: Stable affect, answering questions appropriately, no asterixis Neuro: A/Ox3 noted to move all extremities spontaneously Ext: no peripheral edema, spider angioma on chest Assessment & Plan Assessment & Plan (1) Hepatic cirrhosis due to chronic hepatitis C infection: Code(s): B18.2 - Chronic viral hepatitis C; K74.60 - Unspecified cirrhosis of liver Category: Medical (2) HIV (human immunodeficiency virus infection): Code(s): B20 - Human immunodeficiency virus [HIV] disease Category: Medical (3) Hepatitis B core antibody positive: Code(s): R76.8 - Other specified abnormal immunological findings in serum Category: Medical (4) Liver mass: Code(s): R16.0 - Hepatomegaly, not elsewhere classified Category: Medical (5) detention current use of diuretic: Code(s): Z79.899 - Other termite control service representative (current) drug therapy Category: Medical (6) Cirrhosis: Code(s): K74.60 - Unspecified cirrhosis of liver Category: Medical (7) Need for antibiotic prophylaxis for dental procedure: Code(s): Z79.2 - supervisor intermediates (current) use of antibiotics Category: Medical Plan #Decomp liver cirrhosis - Chronic HCV genotype 1a - SVR - Co-infection with HIV and occult HBV - MELD-Na 10, Child's Class B Completed Epclusa Sep 2023 with SVR confirmed earlier this year. Overall doing well from cirrhosis standpoint. No indication for transplant referral at this time. - Ascites/peripheral edema: No ascites on exam today. Cont Amiloride 10mg and furosemide 40mg Recheck BMP, urine Na and K. Low salt 2g diet reinforced. Pt was also advised to weigh himself frequently and to call office for weight gain of 3lbs in 2days or 5 lbs in 7 days. - Variceal screening: Last EGD 07/2023. On Coreg 6.25 BID for primary prophylaxis. Repeat EGD due in 2024. - HCC screening: MRI 01/05 reviewed. Due for next screening in Jun. MRI orders placed. - Resolved HBV status: will need prophylaxis prior to any immunosuppression. Checkign HBV DNA as compelted Epclusa. - Hepatic encephalopathy: None on hx/exam today. Educated on early s/sx of encephalopathy in which case he is to resume lactulose for goal 2-3 BMs per day. Avoid benzos, opiates, Benadryl and other OTC sedatives. - Pain control: NSAIDs to be completely avoided. Also reviewed avoidance of opiates due to hx of HE as above. Tylenol up to 2g/day is okay. - Nutrition: Reviewed 2g Na diet as above. Do not restrict protein. Add a night time snack to avoid prolonged period of fasting. - CRC screening: Had x1 tubular adenoma on colo 07/2023. Repeat recommended in 2029. - Labs: Updated MELD labs ordered. Follow up in 6 months. Orders: Orders MR abdomen wo/w con 05/26/24 R16.0 - Hepatomegaly, not elsewhere classified Coding Level of Care Code Est Pt Level 4 (66354) Diagnoses Hepatic cirrhosis due to chronic hepatitis C infection B18.2; K74.60 HIV (human immunodeficiency virus infection) B20 Hepatitis B core antibody positive R76.8 Liver mass R16.0 detention current use of diuretic Z79.899 Cirrhosis K74.60 Need for antibiotic prophylaxis for dental procedure Z79.2
[2024-05-26 14:56] VITALS: BP 115/63; PULSE 62; BMI 20.4
== END 2024-05-26 15:52 | disposition home or self-care (01) ==
PROVIDERS: PCP General Practice; Visit Provider Internal Medicine
DX: B18.2 Chronic viral hepatitis C (principal); K74.60 Unspecified cirrhosis of liver; B20 Human immunodeficiency virus [HIV] disease; R76.8 Other specified abnormal immunological findings in serum; R16.0 Hepatomegaly, not elsewhere classified; Z79.899 Other long term (current) drug therapy; Z79.2 Long term (current) use of antibiotics
CPT/HCPCS: 99214

== ENCOUNTER 2024-06-02 09:49 | Outpatient (REF) | payer MEDICAID, SELFPAY ==
--- NOTE | ~2024-06-02 | US_ITS ---
EXAMINATION: US LOWER EXTREMITY VENOUS (REFLUX EXAM), BILATERAL CLINICAL INDICATION: Chronic venous insufficiency within the lower extremity varicose veins with inflammation COMPARISON: None. TECHNIQUE: Color flow triplex imaging and compression Doppler was performed to evaluate both the deep and the superficial systems bilaterally. To evaluate the superficial system, the examination was performed in the upright position. Color-flow Doppler ultrasound and compression ultrasound were utilized. In addition, maneuvers were utilized to demonstrate reflux. FINDINGS: 1. DEEP VENOUS ULTRASOUND OF THE RIGHT LOWER EXTREMITY: Common Femoral Vein: Compressible, normal respiratory variation and augmented flow. Femoral Vein: Compressible, normal color flow and augmentation. Popliteal Vein: Compressible, normal augmentation. Deep Reflux: There is no evidence of reflux in the deep system in either the common femoral vein, superficial femoral or the popliteal vein. There is no evidence of a Sanders's cyst. 2. SUPERFICIAL ULTRASOUND WITH DOPPLER OF RIGHT LOWER EXTREMITY: GREAT SAPHENOUS VEIN: Saphenofemoral Junction: 0.7 cm; Reflux: 0 ms Proximal Thigh: 0.6 cm; Reflux: 0 ms Mid Thigh: 0.2 cm; Reflux: 0 ms Above Knee: 0.3 cm; Reflux: 1552 ms At Knee: 0.3 cm; Reflux: 2708 ms Below Knee: 0.2 cm; Reflux: 0 ms Mid Calf: 0.1 cm; Reflux: 0 ms Ankle: 0.1 cm; Reflux: 0 ms DUPLICATED MEDIAL GREAT SAPHENOUS VEIN: Diameter: 0.3 cm Reflux: None DUPLICATED LATERAL GREAT SAPHENOUS VEIN: Diameter: None imaged Reflux: NA SMALL SAPHENOUS VEIN: Saphenopopliteal Junction: 0.2 cm; Reflux: 0 ms Proximal: 0.2 cm; Reflux: 0 ms Distal: 0.2 cm; Reflux: 0 ms VEIN OF GIACOMINI: Size: NA Reflux: NA PERFORATORS: Location: None imaged Size: NA Reflux: NA VARICOSITIES: Location: None significant Size: NA Reflux: NA 3. DEEP VENOUS ULTRASOUND OF THE LEFT LOWER EXTREMITY: Common Femoral Vein: Compressible, normal respiratory variation and augmented flow. Femoral Vein: Compressible, normal color flow and augmentation. Popliteal Vein: Compressible, normal augmentation. Deep Reflux: There is no evidence of reflux in the deep system in either the common femoral vein, superficial femoral or the popliteal vein. There is no evidence of a Sanders's cyst. 4. SUPERFICIAL ULTRASOUND WITH DOPPLER OF LEFT LOWER EXTREMITY: GREAT SAPHENOUS VEIN: Saphenofemoral Junction: 0.5 cm; Reflux: 0 ms Proximal Thigh: 0.4 cm; Reflux: 0 ms Mid Thigh: 0.2 cm; Reflux: 0 ms Above Knee: 0.2 cm; Reflux: 0 ms At Knee: 0.2 cm; Reflux: 0 ms Below Knee: Not well visualized Mid Calf: Not well visualized Ankle: Not well visualized DUPLICATED MEDIAL GREAT SAPHENOUS VEIN: Diameter: None imaged Reflux: NA DUPLICATED LATERAL GREAT SAPHENOUS VEIN: Diameter: 0.2 cm Reflux: None SMALL SAPHENOUS VEIN: Saphenopopliteal Junction: 0.2 cm; Reflux: 0 ms Proximal: 0.2 cm; Reflux: 0 ms Distal: 0.2 cm; Reflux: 0 ms VEIN OF GIACOMINI: Size: NA Reflux: NA PERFORATORS: Location: None imaged Size: NA Reflux: NA VARICOSITIES: Location: None significant Size: NA Reflux: NA US/US venous duplex LE BI IMPRESSION: Right: Segmental areas of reflux in the right great saphenous vein at the distal thigh and knee. No significant varicose veins Left: No significant reflux in the great saphenous vein or small saphenous vein. No significant varicose veins Electronically signed by: Negro White MD 06/09/2024 03:57 PM EDT
== END 2024-06-02 09:50 | disposition home or self-care (01) ==
LOC: HO.US 09:49
PROVIDERS: PCP General Practice; Visit Provider Surgery Vascular Surgery
DX: I83.12 Varicose veins of left lower extremity with inflammation (principal)
CPT/HCPCS: 93970

== ENCOUNTER 2024-06-26 09:36 | Outpatient (AMB) | payer MEDICAID, SELFPAY ==
[2024-06-26 09:39] VITALS: BMI 20.8
--- NOTE | 2024-06-26 09:39 | MHC.OFFVIS ---
Vital Signs 06/26/24 09:39 Height 5 ft 1 in Weight 110 lb BMI 20.8 Intake Visit Reasons: follow up US Intake Note: follow up US 06/02/24, pt states bilateral LE VV w/ some mild pain in some spots. 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 Does have some spider telangiectasias in his legs which are of concern and upon discussion with him he notes that there is pain on the lateral aspect of his legs more from his hip down the lateral aspect of his thighs. There are some mild superficial varicosities in this region but nonsignificant. He does have some mild lower extremity swelling. No difficulty ambulating. Now presents for follow-up with venous insufficiency testing. 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 Hepatitis C Cirrhosis Venereal warts HIV (human immunodeficiency virus infection) Diabetes mellitus Surgical History Hx of oral surgery History of esophagogastroduodenoscopy (EGD) Family History Paternal Grandfather Colon cancer Social History Alcohol intake: former Patient Tobacco Use Status: Current everyday Tobacco user Tobacco use type: Cigarette Cigarettes Per Day: 4 Substance Use Type: IV Drugs Review of Systems Const All systems reviewed & are unremarkable except as noted in HPI and below Reports no additional complaints ENT Reports Normal hearing present Card Denies chest pain, Denies chest pain at rest, Denies chest pain with activity and Denies pedal edema Resp Denies cough GI Denies abdominal pain Musc Denies abnormal gait, Denies muscle cramps and Denies radiating pain into limb Skin/Breast Denies skin ulcer and Denies wounds Neuro Reports Normal hearing present and Denies abnormal gait Psych Reports no additional complaints Physical Exam Vital Signs: BMI result Body Mass Index 20.8 Const General: cooperative, healthy appearing and comfortable Orientation/consciousness: oriented to person, oriented to place and oriented to time HEENT Head: Yes normal to inspection Neck Neck: Yes normal visual inspection Carotids: no bruits Chest Chest palpation & inspection: normal inspection of the chest Resp Effort & Inspection: normal respiratory effort and able to speak in complete sentences Auscultation: clear to auscultation bilaterally, no crackles, no rales, no rhonchi and no wheezes Cardio Rate: regular rate Rhythm: regular rhythm Heart sounds: S1 normal heart sound present and S2 normal heart sound present Bruits: no carotid bruits Peripheral pulses: Peripheral pulses 2+ throughout GI Inspection: Yes normal to inspection Skin Wounds: no wounds Hair: normal Neuro General: oriented to person, oriented to place and oriented to time Cranial nerves: Yes CN's II-XII intact bilaterally and Yes Normal hearing present Cognition (Neuro): normal cognition Motor exam (neuro): 5/5 motor strength present throughout Extrem Other: venous exam: +1 edema. Spider telangiectasias Upon palpation direct tenderness on the iliotibial bands bilaterally lateral aspect of thigh General: No clubbing, No cyanosis and No edema Psych Appearance: grossly normal Mental Status: mental status grossly normal Speech and movement: Normal speech and movement present Results Reviewed Results Reviewed: Brief summary of venous insufficiency testing is as follows: right great saphenous vein: Focally positive at knee right small saphenous vein: negative right accessory vein: none present left great saphenous vein: negative left small saphenous vein: negative left accessory vein: none present Please note there is no evidence of any venous aneurysms or significant tortuosity Assessment & Plan Assessment & Plan (1) Leg pain: Code(s): M79.606 - Pain in leg, unspecified Category: Medical Qualifiers: Laterality: bilateral Qualified Code(s): M79.604 - Pain in right leg; M79.605 - Pain in left leg Plan: In short patient has bilateral lower extremity leg pain. It does not appear to be arterial in nature as he does have palpable pulses. Venous testing has been essentially negative. I do think that the majority of his pain is musculoskeletal and a radiates down the iliotibial bands. Should this continue patient may benefit from an orthopedics evaluation. Stable from a vascular perspective. We did discuss routine conservative measures including compression elevation and exercise. In terms the spider telangiectasias they are more cosmetic in nature. Should he require treatment of those happy to refer him to a cosmetic center. Will follow up with us on an as-needed basis. Thank you for allowing us to assist in his care. Coding Level of Care Code Est Pt Level 4 (29194) Diagnoses Pain in both lower extremities M79.604; M79.605 Laterality: bilateral
== END 2024-06-26 10:12 | disposition home or self-care (01) ==
PROVIDERS: PCP General Practice; Visit Provider Surgery Vascular Surgery
DX: M79.604 Pain in right leg (principal); M79.605 Pain in left leg
CPT/HCPCS: 99214

== ENCOUNTER → 2024-06-26 09:36 | Outpatient (BNVA) | payer MEDICAID, SELFPAY | PROVIDERS: PCP General Practice; Visit Provider Surgery Vascular Surgery | DX: M79.604 Pain in right leg (principal); M79.605 Pain in left leg | CPT/HCPCS: 99212 ==

== ENCOUNTER 2024-07-09 13:38 | Outpatient (AMB) | payer MEDICAID, SELFPAY ==
--- NOTE | 2024-07-09 13:58 | A.OFFVIS_ITS ---
Intake Intake Visit Reasons: 30 min/CONFIRMED Mint Machine Operator Required: No Accompanied by: Self / Same As Patient Allergies No Known Allergies Allergy (Verified 06/26/24 09:43) HPI Comprehensive Diabetes Asmnt Most Recent Diabetes Results: Microalb/Creat Ratio 441.5 ug/mg cr 05/31/23 Cholesterol 160 mg/dL (<200) 11/14/23 HDL Cholesterol 59 mg/dL (>40) 11/14/23 Triglycerides 88 mg/dL (<150) 11/14/23 Creatinine 1.09 mg/dL (0.5-1.4) 05/26/24 Blood Urea Nitrogen 14 mg/dL (9-16) 05/26/24 Sodium 140 mmol/L (135-145) 05/26/24 Potassium 4.3 mmol/L (3.3-5.1) 05/26/24 Chloride 106 mmol/L (96-108) 05/26/24 Carbon Dioxide 25 mmol/L (22-29) 05/26/24 Calcium 8.5 mg/dL (8.4-10.2) 05/26/24 AST 48 U/L (5-37) H 05/26/24 ALT 38 U/L (0-40) 05/26/24 Total Protein 7.0 g/dL (6.5-8.0) 05/26/24 Albumin 3.1 g/dL (3.5-5.0) L 05/26/24 [facility] Medical History Diabetes mellitus type 2, uncomplicated, on emt intermediate insulin pump Hepatitis C Cirrhosis Venereal warts HIV (human immunodeficiency virus infection) Diabetes mellitus Surgical History Hx of oral surgery History of esophagogastroduodenoscopy (EGD) Family History Paternal Grandfather Colon cancer Social History Alcohol intake: former Patient Tobacco Use Status: Current everyday Tobacco user Tobacco use type: Cigarette Cigarettes Per Day: 4 Substance Use Type: IV Drugs Assessment & Plan Assessment & Plan (1) Diabetes mellitus type 2, uncomplicated, on correction insulin pump: Code(s): E11.9 - Type 2 diabetes mellitus without complications; Z96.41 - Presence of insulin pump (external) (internal) Plan: Patient presents for pump training for Omni Pod 5 pump and CGM training today. The following topics were reviewed today: Pt is currently off pump Reports he will resume Omnipod 5 this afternoon Patient has requested a switch in pharmacies for his prescriptions, message sent to provider At last visit with provider patient expressed interest in transitioning from Dexcom G6 to Dexcom G7 compatible with Omnipod 5 Explained to patient at this time the Omnipod pods from local pharmacy are not compatible Dexcom G7. Once patient receives pods that is a compatible with Dexcom G6 and G7 we can transition him to Dexcom G7 sensors Patient reports he has not been taking basal insulin, recommended to patient if he does not resume pump therapy he should be taking Lantus daily along with Humalog before meals Patient stated he understood Omnipod user ID: [id number] Password: [email or web address]! Instructed patient to only use room temperature insulin, how to load cartridge or fill pod, with insulin. Fill tubing and cannula (if applicable) Troubleshooting after starting new pod or inserting new insulin set: Occlusion, adhesive tape sensitivity, redness Check BG 2 hours after site change Safety information: Importance of a backup plan, for manual injections, proper prescriptions and emergency supplies ketone strips, and rules for testing for ketones Patient understands the basic concepts of pump therapy, how to give insulin for meals and snacks, how to troubleshoot for hyper and hypoglycemia. Setting verified by CDCES, no changes to pump settings Basal rate(s) (units/hour) : 12 AM? to 12 AM? 0.5 units / hr Bolus setting Insulin Carbohydrate Ratio (s) 12 AM? to 12 AM? 1:14 Correction Factor / Sensitivity Factor 12 AM? to 12 AM? 1:50 Active Insulin Time:? 4 hours Target(s): 12 AM? to 12 AM? 120 mg/dL Correction Threshold 130 mg/dL Patient Instructions: Patient will follow-up with assistant health educator in 1 month Coding Level of Care Code Est Pt Level 1 (18527) Diagnoses Diabetes mellitus type 2, uncomplicated, on emt intermediate insulin pump E11.9; Z 96.41
== END 2024-07-09 14:01 | disposition home or self-care (01) ==
PROVIDERS: PCP General Practice; Visit Provider Registered Nurse Diabetes Educator
DX: E11.9 Type 2 diabetes mellitus without complications (principal); Z96.41 Presence of insulin pump (external) (internal)

== ENCOUNTER → 2024-07-09 13:38 | Outpatient (BNVA) | payer MEDICAID, SELFPAY | PROVIDERS: PCP General Practice; Visit Provider Registered Nurse Diabetes Educator | DX: E11.9 Type 2 diabetes mellitus without complications (principal); B20 Human immunodeficiency virus [HIV] disease; Z96.41 Presence of insulin pump (external) (internal); Z46.81 Encounter for fitting and adjustment of insulin pump | CPT/HCPCS: 99211 ==

== ENCOUNTER 2024-07-30 10:23 | Outpatient (REF) | payer MEDICAID, SELFPAY | END 2024-07-30 10:24 | disposition home or self-care (01) | LOC: HO.MRI 10:23 | PROVIDERS: PCP General Practice; Visit Provider Internal Medicine | DX: Z13.89 Encounter for screening for other disorder (principal) ==

== ENCOUNTER 2024-07-31 14:55 | Outpatient (AMB) | payer MEDICAID, SELFPAY ==
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
[2024-07-31 15:12] VITALS: BP 130/70; PULSE 102; BMI 21.2
== END 2024-07-31 15:29 | disposition home or self-care (01) ==
PROVIDERS: PCP General Practice; Visit Provider Surgery
DX: M79.5 Residual foreign body in soft tissue (principal)
CPT/HCPCS: 99203

== ENCOUNTER → 2024-07-31 14:55 | Outpatient (BNVA) | payer MEDICAID, SELFPAY | PROVIDERS: PCP General Practice; Visit Provider Surgery | DX: M79.5 Residual foreign body in soft tissue (principal) | CPT/HCPCS: 99202 ==

== ENCOUNTER 2024-08-14 12:38 | Outpatient (REF) | payer MEDICAID, SELFPAY | END 2024-08-14 12:39 | disposition home or self-care (01) | LOC: HO.MRI 12:38 | PROVIDERS: PCP General Practice; Visit Provider Internal Medicine | DX: Z13.89 Encounter for screening for other disorder (principal) ==

== ENCOUNTER 2024-08-18 12:15 | Outpatient (REF) | payer MEDICAID, SELFPAY ==
--- NOTE | ~2024-08-18 | US_ITS ---
EXAMINATION: ULTRASOUND EXTREMITY, NONVASCULAR. CLINICAL INFORMATION: Residual foreign body in the soft tissues. COMPARISON: No priors. TECHNIQUE: Limited real-time ultrasound of the region of concern in the left elbow using a linear transducer with grayscale and color Doppler technique. FINDINGS: There is a 3 mm linear hyperechoic abnormality within the fat planes of the posterior left elbow without flow on color Doppler interrogation. No solid or cystic lesion. No fluid collections. US/US extremity nonvascular IMPRESSION: Concerning 3 mm foreign body soft tissues posterior left elbow. Electronically signed by: Britton Nathan MD 08/27/2024 08:05 AM LOI
== END 2024-08-18 12:16 | disposition home or self-care (01) ==
LOC: HO.US 12:15
PROVIDERS: PCP General Practice; Visit Provider Surgery
DX: M79.5 Residual foreign body in soft tissue (principal)
CPT/HCPCS: 76882

== ENCOUNTER → 2024-08-18 12:16 | Outpatient (BNV) | payer MEDICAID, SELFPAY | PROVIDERS: PCP General Practice; Visit Provider Radiology Diagnostic Radiology | DX: M79.5 Residual foreign body in soft tissue (principal) | CPT/HCPCS: 76882 ==

== ENCOUNTER 2024-08-27 09:07 | Outpatient (REF) | payer MEDICAID, SELFPAY | END 2024-08-27 09:08 | disposition home or self-care (01) | LOC: HO.MRI 09:07 | PROVIDERS: PCP General Practice; Visit Provider Internal Medicine | DX: Z13.89 Encounter for screening for other disorder (principal) ==

== ENCOUNTER 2024-09-08 13:59 | Outpatient (AMB) | payer MEDICAID, SELFPAY ==
--- NOTE | 2024-09-08 14:18 | A.OFFVIS_ITS ---
Intake Intake Visit Reasons: DM/sensor issues Agile Scrum Master Required: No Accompanied by: Self / Same As Patient Allergies No Known Allergies Allergy (Verified 09/08/24 14:19) HPI Comprehensive Diabetes Asmnt Most Recent Diabetes Results: Microalb/Creat Ratio 441.5 ug/mg cr 05/31/23 Cholesterol 160 mg/dL (<200) 11/14/23 HDL Cholesterol 59 mg/dL (>40) 11/14/23 Triglycerides 88 mg/dL (<150) 11/14/23 Creatinine 1.09 mg/dL (0.5-1.4) 05/26/24 Blood Urea Nitrogen 14 mg/dL (9-16) 05/26/24 Sodium 140 mmol/L (135-145) 05/26/24 Potassium 4.3 mmol/L (3.3-5.1) 05/26/24 Chloride 106 mmol/L (96-108) 05/26/24 Carbon Dioxide 25 mmol/L (22-29) 05/26/24 Calcium 8.5 mg/dL (8.4-10.2) 05/26/24 AST 48 U/L (5-37) H 05/26/24 ALT 38 U/L (0-40) 05/26/24 Total Protein 7.0 g/dL (6.5-8.0) 05/26/24 Albumin 3.1 g/dL (3.5-5.0) L 05/26/24 [facility] Medical History (Updated 07/31/24 @ 15:22 by Jeet Medina MD) Foreign body (FB) in soft tissue Diabetes mellitus type 2, uncomplicated, on penitentiary insulin pump Hepatitis C Cirrhosis Venereal warts HIV (human immunodeficiency virus infection) Diabetes mellitus Surgical History Hx of oral surgery History of esophagogastroduodenoscopy (EGD) Family History Paternal Grandfather Colon cancer Social History Alcohol intake: former Patient Tobacco Use Status: Current everyday Tobacco user Tobacco use type: Cigarette Cigarettes Per Day: 4 Substance Use Type: IV Drugs Assessment & Plan Assessment & Plan (1) T2DM (type 2 diabetes mellitus): Code(s): E11.9 - Type 2 diabetes mellitus without complications Plan: Patient remains off Omnipod 5, he is currently waiting for ultrasound for pain in his stomach. Came to office today because his last Dexcom G6 sensor, fell off after he applied it. Patient given sample Dexcom G6 sensor, patient did not bring transmitter or Dexcom control her to today's visit Instructed patient insert Dexcom G6 sensor when he gets home, let Diabetes Education nurse know when he would like to reinitiate Omnipod 5 insulin pump Patient has follow-up appointment with tobacco educator on 09/16/2024 Patient Instructions: Call Dexcom customer support to obtain replacement G6 sensor for defective sensor Coding Level of Care Code Est Pt Level 1 (37158) Diagnoses T2DM (type 2 diabetes mellitus) E11.9
== END 2024-09-08 14:27 | disposition home or self-care (01) ==
LOC: HO.ENCR 13:59
PROVIDERS: PCP General Practice; Visit Provider Registered Nurse Diabetes Educator
DX: E11.9 Type 2 diabetes mellitus without complications (principal)

== ENCOUNTER → 2024-09-08 13:59 | Outpatient (BNVA) | payer MEDICAID, SELFPAY | PROVIDERS: PCP General Practice; Visit Provider Registered Nurse Diabetes Educator | DX: E11.9 Type 2 diabetes mellitus without complications (principal); R10.9 Unspecified abdominal pain; M79.5 Residual foreign body in soft tissue; Z96.41 Presence of insulin pump (external) (internal); Z79.4 Long term (current) use of insulin | CPT/HCPCS: 99211; 99212 ==

== ENCOUNTER 2024-09-08 14:12 | Outpatient (AMB) | payer MEDICAID, SELFPAY ==
--- NOTE | 2024-09-08 14:19 | MHC.OFFVIS ---
Vital Signs 09/08/24 14:41 Height 5 ft 1 in Weight 114 lb 2 oz BMI 21.6 BP 140/67 H Blood Pressure Location Rt brachial Position Sitting Pulse 78 Intake Visit Reasons: US extremity follow-up Intake Note: This patient presents for US extremity follow-up. Pt c/o; reports no complaints. Financial Administration Officer Required: No Accompanied by: Self / Same As Patient Allergies No Known Allergies Allergy (Verified 09/08/24 14:19) Medication List - Last Reconciled 09/08/24 by Jeet Medina MD acetone (urine) test (Ketone Urine Test strips) As directed prn tid for sugar above 250 or nausea/vomiting amiloride 10 mg PO DAILY atorvastatin 10 mg PO DAILY xarvellxn-qouanmja-voidrcv ala 50-200-25 mg (Biktarvy) 1 tab PO DAILY 30 days blood sugar diagnostic (FreeStyle Lite Strips) DIRECTED-CHECKS 4 X/DAY blood-glucose meter (FreeStyle Lite Meter kit) As directed blood-glucose sensor (Dexcom G6 Sensor device) DIRECTED CHANGE EVERY 10 DAYS blood-glucose sensor (Dexcom G7 Sensor device) As directed every 10 days blood-glucose transmitter (Dexcom G6 Transmitter device) As directed carvedilol 6.25 mg (2 x 3.125 mg) PO BID chlorhexidine gluconate 0.12% PO doxepin 25 mg PO BEDTIME furosemide 40 mg (2 x 20 mg) PO QAM 30 days gabapentin 800 mg (2 x 400 mg) PO BID glucagon 3 mg/actuation (Baqsimi) 3 mg intranasal ONCE glucagon 3 mg/actuation (Baqsimi) 3 mg intranasal ONCE PRN 30 days imiquimod 5% 1 appl topical 3XW 14 days insulin glargine (Lantus Solostar U-100 Insulin) 10 units (0.1 mL) subcut QPM insulin lispro Infuse up to 50 units per day via insulin pump subcutaneously daily; insulin pump cart,auto,BT-cntr (Omnipod 5 G6 Intro Kit (Gen 5) subcutaneous cartridge with controller) As directed insulin pump cart,automated,BT (Omnipod 5 G6 Pods (Gen 5) subcutaneous cartridge) As directed change every 72 hrs lancets (FreeStyle Lancets) As directed checks 4 X/day oxycodone 5 mg PO Q6H PRN pen needle, diabetic (Comfort EZ Pen [place]) As directed for prn use with insulin tid HPI HPI US extremity follow-up: Details: He is here for follow-up after an ultrasound of the soft tissue of the left elbow. He says he might have had a foreign body in the area a so I had sent him for this ultrasound. He denies any new complaints. He does not feel the foreign body at this time. He denies any pain currently. [facility] Medical History Foreign body (FB) in soft tissue Diabetes mellitus type 2, uncomplicated, on shelter insulin pump Hepatitis C Cirrhosis Venereal warts HIV (human immunodeficiency virus infection) Diabetes mellitus Surgical History Hx of oral surgery History of esophagogastroduodenoscopy (EGD) Family History Paternal Grandfather Colon cancer Social History Alcohol intake: former Patient Tobacco Use Status: Current everyday Tobacco user Tobacco use type: Cigarette Cigarettes Per Day: 4 Substance Use Type: IV Drugs Review of Systems Const Denies chills and Denies fever(s) Card Denies chest pain, Denies dyspnea and Denies dyspnea on exertion Resp Denies cough, Denies dyspnea and Denies dyspnea on exertion GI Denies hematochezia and Denies change in bowel habits Denies hematuria and Denies difficulty urinating Musc Denies back pain and Denies limited range of motion Neuro Denies focal weakness and Denies convulsions Psych Denies depression and Denies mood swings Physical Exam Vital Signs: Last Vital Signs Pulse 78 09/08/24 14:41 BP 140/67 H 09/08/24 14:41 BMI result Body Mass Index 21.6 Const General: comfortable and no acute distress Resp Effort & Inspection: normal respiratory effort GI Palpation (GI): Soft to palpation Extrem Other: No palpable mass, no palpable foreign body, no skin changes on the left elbow Assessment & Plan Assessment & Plan (1) Foreign body (FB) in soft tissue: Code(s): M79.5 - Residual foreign body in soft tissue Category: Medical Plan: His ultrasound is equivocal about the presence of any foreign body. He currently denies any pain or tenderness. He does not feel any mass. I made able to palpate any mass or any foreign body. I did tell him that if he is certain about the presence of the foreign body, I can excise this area along as he can specify where. This can be done under local anesthesia He says that he is currently does not bother him so he will call my office down the line. Coding Level of Care Code Est Pt Level 2 (40572) Diagnoses Foreign body (FB) in soft tissue M79.5
[2024-09-08 14:41] VITALS: BP 140/67; PULSE 78; BMI 21.6
== END 2024-09-08 14:48 | disposition home or self-care (01) ==
PROVIDERS: PCP General Practice; Visit Provider Surgery
DX: M79.5 Residual foreign body in soft tissue (principal)
CPT/HCPCS: 99212

== ENCOUNTER 2024-11-11 14:46 | Outpatient (AMB) | payer MEDICAID, SELFPAY ==
--- NOTE | 2024-11-11 12:51 | A.OFFVIS_ITS ---
Vital Signs 11/11/24 14:58 Height 5 ft 1 in Weight 114 lb 10.246 oz BMI 21.7 BP 148/72 H Blood Pressure Location Rt brachial Position Sitting Pulse 93 Pulse Source Pulse Oximeter Intake Visit Reasons: DM Intake Note: Patient presents today for a follow-up on Type 2 Diabetes Mellitus: Last Diabetic eye exam was on: 06/15/2024 Last Podiatry exam was on: Patient does not see a Director Of Music Most recent HbA1c: 6.4%, 11/11/2024 Random Glucose- 249 mg/dL, Today Industrial Registered Nurse Required: No Accompanied by: Self / Same As Patient Allergies No Known Allergies Allergy (Verified 09/08/24 14:19) HPI Comments Details: The patient is a type 2 diabetic on an insulin pump started over the last year. Most recent A1c 11/03/2024 6.4%. He has been off the pump for a week because he had an is show with pulling his sensor out and having some minor bleeding. He is planning on going back on the pump. He has been using MDI. Sensor average in the 150's. Shankar antibodies 06/07 less than 5 He reports he is living in temporary housing and has a difficulty obtaining food that is not high in carbohydrates. He was previously living with his sister. Insulin settings not confirmed at today's visit 12 AM? to 12 AM? 0.5 units / hr Bolus setting Insulin Carbohydrate Ratio (s) 12 AM? to 12 AM? 1:14 Correction Factor / Sensitivity Factor 12 AM? to 12 AM? 1:50 Active Insulin Time:? 4 hours Target(s): 12 AM? to 12 AM? 120 mg/dL Correction Threshold 130 mg/dL Family history of T2DM in mother , father Type 2 DM . Has eyes checked yearly, last eye exam 06/15/24 , denies retinopathy. Positive neuropathy, on gabapentin for numbness, tingling. Was evaluated by vascular were some leg pain which was not felt to be related to circulation. Does not see podiatry Microalbumin 05/27/2023 156 05/26/2024 eGFR>60,Not on DOLORES/ARB. Has HLD, on statin. ldl 84 11/14/23 He has a history of liver cirrhosis followed by GI medicine Denies CAD. Has seen perinatal educator throughout 2023 [facility] Medical History (Updated 11/11/24 @ 15:37 by Cathryn Gregory NP) Housing insecurity Foreign body (FB) in soft tissue Diabetes mellitus type 2, uncomplicated, on termite inspector insulin pump Hepatitis C Cirrhosis Venereal warts HIV (human immunodeficiency virus infection) Diabetes mellitus Surgical History Hx of oral surgery History of esophagogastroduodenoscopy (EGD) Family History Paternal Grandfather Colon cancer Social History Alcohol intake: former Patient Tobacco Use Status: Current everyday Tobacco user Tobacco use type: Cigarette Cigarettes Per Day: 4 Substance Use Type: IV Drugs Physical Exam Vital Signs: Last Vital Signs Pulse 93 11/11/24 14:58 BP 148/72 H 11/11/24 14:58 BMI result Body Mass Index 21.7 Const Other: Absence of Cushingoid features. Absence of acromegalic features. Neck exam reveals nl size thyroid about 15 gms. No thyroid nodules palpable. NO carotid bruit Heart S1 S2, Reg R/R. No M/R G. Skin exam reveals absence of vitiligo or acanthosis nigricans. Visual exam of foot performed. No ulcerations or open lesions. No inter digit maceration or fissuring. No onychomycosis, no callouses. Sensation intact to monofilament exam. Vibratory sensation is normal with 128 Hz tuning fork. Pulses positive good cap refill Results AMB Hemoglobin A1c AMB Hemoglobin A1c 6.4 % Last Edit by NAKUL Jordan on 11/11/24 15:24 Results Reviewed Results Reviewed: Laboratory Last Values Glucose (Clinic) 249 mg/dL (60-115) H 11/11/24 15:09 Hgb A1c (Clinic) 6.4 % (4.0-6.0) H 11/11/24 15:14 Assessment & Plan Assessment & Plan (1) Diabetes mellitus type 2, uncomplicated, on termite inspector insulin pump: Code(s): E11.9 - Type 2 diabetes mellitus without complications; Z96.41 - Presence of insulin pump (external) (internal) Category: Medical Plan: The patient is a 54-year-old type 2 diabetic on an insulin pump with the excellent glycemic control. He was temporarily off pump but we will restart. Most recent A1c was 6.4%. He has neuropathy on gabapentin, nephropathy with preserved renal function. He is due for a microalbumin and lipid profile which have been ordered by other providers. The patient had an opportunity to ask questions regarding treatment plan. The patient expressed understanding and agreement with the above treatment plan. The patient is aware they should contact our office by phone for worsening glucose readings or for any low blood sugars which may warrant a change in diabetes medication. Compliance is encouraged with medications and any followup testing/consults which may have been ordered. Orders: Orders AMB Hemoglobin A1c 11/11/24 E11.9 - Type 2 diabetes mellitus without complications, Z96.41 - Presence of insulin pump (external) (internal) Referrals Social Service Referral Z59.819 - Housing instability, housed unspecified Patient Instructions: Take 15 carb carbohydrate grams to treat a low sugar (3-4 glucose tablets, half a glass of juice or 15 carbohydrate grams of soft candy such as gummie snacks). Recheck your sugar in 15 minutes and re-treat again with 15 carbohydrate grams if low or still with symptoms. Do not drive a car or operate machinery if you do not know what your blood sugar is, if it is low or in excess of 300. Check your feet daily looking for any signs of infection, drainage, redness, ulceration and seek medical attention if this occurs. Break in shoes gradually and do not wear open-toed shoes or walk stocking footed or barefooted. The patient was counseled to achieve a target A1C of 7% (154 avg). Fasting blood sugars should be 90-130 in the morning and less than 180 two hours after meals. Reviewed the relationship between poor diabetic control and the development of complications. Diabetic ketoacidosis (DKA) A serious condition that can lead to diabetic coma (passing out for a long time) or even When your cells don't get the glucose they need for energy, your body begins to burn fat for energy, which produces ketones. Ketones are chemicals that the body creates when it breaks down fat to use for energy. The body does this when it doesn?t have enough insulin to use glucose, the body?s normal source of energy. When ketones build up in the blood, they make it more acidic. They are a warning sign that your diabetes is out of control or that you are getting sick. Symptoms of Diabetic Ketoacidosis (DKA) DKA usually develops slowly. But when vomiting occurs, this life-threatening condition can develop in a few hours. Early symptoms include the following: ? Thirst or a very dry mouth ? Frequent urination ? High blood glucose (blood sugar) levels ? High levels of ketones in the urine ? Then, other symptoms appear: ? Constantly feeling tired ? Dry or flushed skin ? Nausea, vomiting, or abdominal pain ? (Vomiting can be caused by many illnesses, not just ketoacidosis. If vomiting continues for more than 2 hours, contact your health care provider.) ? Difficulty breathing ? Fruity odor on breath ? A hard time paying attention, or confusion When should you test for ketones? It is advisable to check for ketones under the following conditions when: Your blood glucose is higher than 250mg/dl. Feeling nauseated, throwing up, or have pains in your abdominal region. Have a cold or flu. Have general body fatigue. Feel thirsty or have a very dry mouth. Have flushed skin. Have a fruity breath or a hard time breathing. You feel perplexed or in fog. How to Test Urine for Ketones You can detect ketones with a simple urine test using a test strip, similar to a blood testing strip. Ask your health care provider when and how you should test for ketones. Many experts advise to check your urine for ketones when your blood glucose is more than 250 mg/dl. When you are ill (when you have a cold or the flu, for example), check for ketones every 4 to 6 hours. And check every 4 to 6 hours when your blood sugar is more than 250 mg/dl. Also, check for ketones when you have any symptoms of DKA. How to lower your blood sugar level. ? Take medications as directed by physician. ? Drink extra water or noncaffeinated, nonsugared drinks to prevented hydration. ? Exercise if you are not sick However, if your blood sugar is above 250 mg/dl, check your urine for ketones. If you have ketones, do not exercise Exercising when ketones are present may make your blood sugar level go even higher. You'll need to work with your doctor to find the safest way for you to lower your blood sugar level. Coding Level of Care Code Est Pt Level 4 (67637) Complex EM visit Add On G2211 Diagnoses Diabetes mellitus type 2, uncomplicated, on retirement insulin pump E11.9; Z96.41
[2024-11-11 14:58] VITALS: BP 148/72; PULSE 93; BMI 21.7
[2024-11-11 15:14] LABS: Glucose, Whole Blood 249 mg/dL (60-115)
== END 2024-11-11 16:07 | disposition home or self-care (01) ==
PROVIDERS: PCP General Practice; Visit Provider Nurse Practitioner Adult Health
DX: E11.9 Type 2 diabetes mellitus without complications (principal); Z96.41 Presence of insulin pump (external) (internal)
CPT/HCPCS: 99214

== ENCOUNTER → 2024-11-11 14:46 | Outpatient (BNVA) | payer MEDICAID, SELFPAY | PROVIDERS: PCP General Practice; Visit Provider Nurse Practitioner Adult Health | DX: E11.9 Type 2 diabetes mellitus without complications (principal); Z96.41 Presence of insulin pump (external) (internal); Z79.4 Long term (current) use of insulin; Z59.819 Housing instability, housed unspecified | CPT/HCPCS: 82947; 83036; 99212 ==

== ENCOUNTER 2024-11-14 13:45 | Emergency (ER) | payer MEDICAID, SELFPAY ==
[2024-11-14 13:54] VITALS: BP 138/77; PULSE 71; RESP 18; TEMP 36.6; O2SAT 98; BMI 20.8
[2024-11-14 13:57] LABS: Glucose, Whole Blood 173 mg/dL (60-115)
--- NOTE | 2024-11-14 14:44 | ECG_ITS ---
Test Reason : weakness Blood Pressure : */* mmHG Vent. Rate : 66 BPM Atrial Rate : 66 BPM P-R Int : 142 ms QRS Dur : 80 ms QT Int : 388 ms P-R-T Axes : 20 56 44 degrees QTcB Int : 406 ms Normal sinus rhythm Normal ECG No previous ECGs available Referred By: Ravi Sandoval Electronically Signed By: CELESTINE AYALA
--- NOTE | 2024-11-14 14:46 | ED.GENADULT ---
HPI - General Adult General Chief complaint: General Medical Stated complaint: DKA? Time Seen by Provider: 11/14/24 18:20 Source: patient Limitations: language barrier History of Present Illness ED Provider: Gabby Higgins PA-C HPI narrative: 54-year-old male with a history of insulin-dependent diabetes, hep C, hep B, HIV, cirrhosis, presents with concerns for hyperglycemia. Patient states he took his prescribed 15 units of insulin prior to eating. He states that his blood sugar sensor was beeping, he was concerned his sugars were elevated, he did not have the remainder of his equipment with him to verify his blood sugar, he came to the emergency department for assessment. Patient is asymptomatic at this time, denies dizziness, nausea, vomiting or abdominal pain. Related Data Home Medications ?Medication ?Instructions ?Recorded ?Confirmed doxepin 25 mg capsule 25 mg PO BEDTIME 01/15/23 09/08/24 amiloride 5 mg tablet 10 mg PO DAILY 05/26/24 09/08/24 chlorhexidine gluconate 0.12 % PO 05/26/24 09/08/24 mouthwash oxycodone 5 mg tablet 5 mg PO Q6H PRN pain 05/26/24 09/08/24 Previous Rx's ?Medication ?Instructions ?Recorded gabapentin 400 mg capsule 800 mg (2 x 400 mg) PO BID #120 10/02/22 caps furosemide 20 mg tablet 40 mg (2 x 20 mg) PO QAM 30 days 10/27/22 #60 tabs bictegravir 50 mg-emtricitabine 1 tab PO DAILY 30 days #30 tabs 11/08/22 200 mg-tenofovir alafenam 25 mg tablet (Biktarvy) imiquimod 5 % topical cream packet 1 appl topical 3XW 14 days #12 ea 11/08/22 blood-glucose meter (FreeStyle #1 ea 03/09/23 Lite Meter kit) lancets 28 gauge (FreeStyle #100 ea 03/09/23 Lancets) carvedilol 3.125 mg tablet 6.25 mg (2 x 3.125 mg) PO BID #60 07/31/23 tabs atorvastatin 10 mg tablet 10 mg PO DAILY #90 tabs 08/27/23 blood sugar diagnostic (FreeStyle #100 strips 01/03/24 Lite Strips) insulin pump cartridge,automated #1 ea 04/10/24 dose,BT with controller subcutaneous (Omnipod 5 G6 Intro Kit (Gen 5) subcutaneous cartridge with controller) acetone (urine) test (Ketone Urine #50 ea 05/15/24 Test strips) blood-glucose sensor (Dexcom G7 #3 ea 05/15/24 Sensor device) glucagon 3 mg/actuation nasal 3 mg intranasal ONCE #2 ea 05/15/24 spray (Baqsimi) glucagon 3 mg/actuation nasal 3 mg intranasal ONCE PRN prn low 05/15/24 spray (Baqsimi) glucose and unconsious 30 days #2 ea pen needle, diabetic 32 gauge x #50 ea 05/15/24 (Comfort EZ Pen [place]) insulin pump cart,automated,BT #5 ea 07/09/24 (Omnipod 5 G6 Pods (Gen 5) subcutaneous cartridge) blood-glucose sensor (Dexcom G6 #3 ea 09/16/24 Sensor device) blood-glucose transmitter (Dexcom #1 ea 09/16/24 G6 Transmitter device) insulin glargine 100 unit/mL (3 10 unit (0.1 mL) subcut QPM #15 mL 09/16/24 mL) subcutaneous pen (Lantus Solostar U-100 Insulin) insulin lispro 100 unit/mL See Rx Instructions subcut DAILY 09/16/24 subcutaneous solution #20 mL Allergies Allergy/AdvReac Type Severity Reaction Status Date / Time No Known Allergies Allergy Verified 11/14/24 13:54 Review of Systems Review of Systems: Yes all other systems are reviewed and are negative Constitutional: Constitutional: Denies fatigue and Denies fever(s) ENT: Denies dizziness Cardiovascular: Cardiovascular: Denies chest pain and Denies dyspnea Respiratory: Respiratory: Denies dyspnea Gastrointestinal: Gastrointestinal: Denies abdominal pain and Denies nausea Musculoskeletal: Musculoskeletal: Denies muscle weakness Neurologic: Denies dizziness Endocrine: Endocrine: Denies fatigue [facility] Past Medical History Attestation statement: The following information was validated with the patient. Medical History (Updated 11/14/24 @ 19:20 by KWADWO Gil) Housing insecurity Foreign body (FB) in soft tissue Diabetes mellitus type 2, uncomplicated, on alf insulin pump Hepatitis C Cirrhosis Venereal warts HIV (human immunodeficiency virus infection) Diabetes mellitus Surgical History Hx of oral surgery History of esophagogastroduodenoscopy (EGD) Family History Family History Paternal Grandfather Colon cancer Social History Social History Alcohol intake: former Patient Tobacco Use Status: Current everyday Tobacco user Tobacco use type: Cigarette Cigarettes Per Day: 4 Smoked in Last 30 Days: No Use of substances other than those prescribed or required for medical reasons: No Substance Use Type: IV Drugs Advance Directives: No Advance Directives Information Provided: No Physical Exam ED Vital Signs: Vital Signs - 24 hr 11/14/24 13:54 11/14/24 19:01 Temperature 97.9 F 97.9 F Pulse Rate 71 71 Respiratory Rate 18 18 Blood Pressure 138/77 138/77 Pulse Oximetry 98 98 Oxygen Delivery Method Room Air Room Air BMI result Body Mass Index 20.8 Const Other: Alert well-appearing Orientation/consciousness: patient oriented x3 Resp Effort & Inspection: normal respiratory effort Cardio Other: Normal peripheral perfusion Skin Other: Warm dry no rash Neuro General: patient oriented x3, gait normal, no focal motor deficits and CN's II-XI intact bilaterally Psych Other: Calm cooperative Course Course Course Narrative: patient complains of waxing and waning sugars, feeling a mild headache thirsty mildly dizzy and also frequent low abdominal pain, no acute change today Labs are ordered This is rapid medical exam done by provider in triage with full history physical evaluation and disposition by ER provider Medical Decision Making Medical Decision Making [facility] Narrative: 54-year-old male with a history of insulin-dependent diabetes, hep C, hep B, HIV, cirrhosis, presents with concerns for hyperglycemia. Patient states he took his prescribed 15 units of insulin prior to eating. He states that his blood sugar sensor was beeping, he was concerned his sugars were elevated, he did not have the remainder of his equipment with him to verify his blood sugar, he came to the emergency department for assessment. Patient is asymptomatic at this time, denies dizziness, nausea, vomiting or abdominal pain. Problem: Diabetes , liver dizzy History: Per patient I have considered the following differential diagnoses: Hyperglycemia, HHS, DKA, electrolyte abnormality Plan: Screening labs including beta hydroxy urinalysis were obtained from triage, the patient was not in DKA his blood sugars are not elevated they are to 0s, he has no symptoms. He is eager for discharge. I have independently reviewed the following tests: Labs: Stable pancytopenia, no electrolyte abnormality, blood sugar 212,, beta hydroxy 0.09, LFTs are stable EKG: Sinus rhythm, rate of 66, no ischemic changes no ectopy QTC 406 Lab Data 11/14/24 15:09 11/14/24 15:09 Labs: Lab Results 11/14/24 11/14/24 11/14/24 Range/Units 13:55 15:09 15:16 WBC 4.1 L (4.8-10.8) X10*3/uL RBC 3.99 L (4.60-5.80) X10*6/uL Hgb 13.7 L (14.0-18.0) g/dl Hct 37.6 L (42.0-52.0) % MCV 94.2 (80.0-98.0) fL MCH 34.3 H (27.0-33.0) pg MCHC 36.4 H (31.0-36.0) g/dl RDW 14.7 (11.0-16.0) % Plt Count 82 L (160-400) X10*3/uL MPV 11.2 (9.4-12.4) fL Immature Gran % (Auto) 0.0 (0.0-0.4) % Neut % (Auto) 71.8 (45-73) % Lymph % (Auto) 15.3 L (20-40) % Cotton % (Auto) 10.0 (2-11) % Eos % (Auto) 2.4 (0-4) % Baso % (Auto) 0.5 (0-2) % Lymph # (Auto) 0.6 L (1.2-4.9) X10*3/uL Cotton # (Auto) 0.4 (0.1-1.2) X10*3/uL Eos # (Auto) 0.1 (0.0-0.4) X10*3/uL Baso # (Auto) 0.0 (0.0-0.2) X10*3/uL Abs Immat Gran (auto) 0.00 (0.00-0.03) X10*3/uL Absolute Neuts (auto) 3.0 (2.0-8.3) x10*3/uL Absolute Nucleated RBC 0.000 (0.0-0.012) X10*3/uL Nucleated RBC % (auto) 0.0 (0.0-0.2) /100WBC Sodium 142 (135-145) mmol/L Potassium 4.0 (3.3-5.1) mmol/L Chloride 110 H (96-108) mmol/L Carbon Dioxide 26 (22-29) mmol/L Anion Gap 10 L (12-20) BUN 14 (9-16) mg/dL Creatinine 0.96 (0.5-1.4) mg/dL Estim Creat Clear Calc 62.8 Estimated GFR > 60 POC Glucose 173 H (60-115) mg/dL Random Glucose 212 H (60-115) mg/dL Lactic Acid 1.3 (0.5-2.0) mmol/L Calcium 8.3 L (8.4-10.2) mg/dL Total Bilirubin 1.2 H (0.0-1.0) mg/dL Direct Bilirubin 0.4 (0.0-0.5) mg/dL AST 62 H (5-37) U/L ALT 40 (0-40) U/L Alkaline Phosphatase 158 H (39-117) U/L Lactate Dehydrogenase 263 (118-273) U/L Troponin I High Sens < 2.7 (<3.5-35.0) ng/L Total Protein 6.7 (6.5-8.0) g/dL Albumin 2.6 L (3.5-5.0) g/dL Lipase 11 (8-78) U/L Beta-Hydroxybutyrate 0.09 (0.02-0.27) mmol/L Urine Color Yellow Urine Appearance Clear Urine pH 7.5 (5.0-9.0) Ur Specific [place] 1.015 (1.005-1.025) Urine Protein 300 (3+) H (Neg-Trace) mg/dL Urine Glucose (UA) 100 H (Negative) mg/dL Urine Ketones Negative (Negative) mg/dL Urine Blood Small (1+) H (Negative) Urine Nitrite Negative (Negative) Ur Leukocyte Esterase Negative (Negative) Urine RBC 6-10 H (0-2) /HPF Urine WBC 0-5 (0-5) /HPF Ur Squamous Epith Cells 0-2 (0-2) /HPF Urine Bacteria None Seen (None Seen) Hyaline Casts 0-2 (0-2) /LPF Discharge Plan Discharge Clinical Impression: T2DM (type 2 diabetes mellitus) Patient Disposition: Home, Self-Care Instructions: Type 2 Diabetes Management for Adults (ED) Additional Instructions: Your blood sugar is 212, you had no associated lab abnormalities. Follow up with your primary care provider as needed. Prescriptions: No Action atorvastatin 10 mg tablet 10 mg PO DAILY Qty: 90 4RF (DME) FreeStyle Lite Strips Strip See Rx Instructions .ROUTE .COMPLEX Qty: 100 5RF Dose Instruction: DIRECTED-CHECKS 4 X/DAY Rx Instructions: DIRECTED-CHECKS 4 X/DAY (DME) Omnipod 5 G6 Intro Kit (Gen 5) Cartridge See Rx Instructions .Route Qty: 1 0RF Rx Instructions: As directed (DME) Omnipod 5 G6 Pods (Gen 5) Cartridge See Rx Instructions .Route Qty: 5 4RF Rx Instructions: As directed change every 72 hrs (DME) Dexcom G6 Sensor Device See Rx Instructions .ROUTE .COMPLEX Qty: 3 5RF Dose Instruction: DIRECTED CHANGE EVERY 10 DAYS Rx Instructions: DIRECTED CHANGE EVERY 10 DAYS (DME) Dexcom G6 Transmitter Device See Rx Instructions .Route Qty: 1 4RF Rx Instructions: As directed insulin glargine [Lantus Solostar U-100 Insulin] 100 unit/mL (3 mL) insulin pen 10 unit subcut QPM Qty: 15 5RF insulin lispro 100 unit/mL solution See Rx Instructions subcut DAILY Qty: 20 4RF Rx Instructions: Infuse up to 50 units per day via insulin pump subcutaneously daily; gabapentin 400 mg capsule 800 mg PO BID Qty: 120 2RF carvedilol 3.125 mg tablet 6.25 mg PO BID Qty: 60 2RF Rx Instructions: must administer with a meal/food furosemide 20 mg tablet 40 mg PO QAM 30 Days Qty: 60 2RF doxepin 25 mg capsule 25 mg PO BEDTIME imiquimod 5 % cream in packet 1 appl topical 3XW 14 Days Qty: 12 2RF Biktarvy 50-200-25 mg tablet 1 tab PO DAILY 30 Days Qty: 30 0RF (DME) blood-glucose meter [FreeStyle Lite Meter] Kit See Rx Instructions .Route Qty: 1 0RF Rx Instructions: As directed (DME) lancets [FreeStyle Lancets] 28 gauge misc See Rx Instructions .Route Qty: 100 4RF Rx Instructions: As directed checks 4 X/day oxycodone 5 mg tablet 5 mg PO Q6H PRN (Reason: pain) chlorhexidine gluconate 0.12 % mouthwash PO amiloride 5 mg tablet 10 mg PO DAILY (DME) Dexcom G7 Sensor Device See Rx Instructions .ROUTE .MEDSUPPLY Qty: 3 11RF Rx Instructions: As directed every 10 days (DME) Ketone Urine Test Strip See Rx Instructions .Route Qty: 50 1RF Rx Instructions: As directed prn tid for sugar above 250 or nausea/vomiting Baqsimi 3 mg/actuation spray,non-aerosol 3 mg intranasal ONCE Qty: 2 4RF (DME) pen needle, diabetic [Comfort EZ Pen [place]] 32 gauge x 5/32 needle See Rx Instructions .Route Qty: 50 1RF Rx Instructions: As directed for prn use with insulin tid Baqsimi 3 mg/actuation spray,non-aerosol 3 mg intranasal ONCE PRN (Reason: prn low glucose and unconsious) 30 Days Qty: 2 1RF Print Language: [place]
[2024-11-14 15:20] LABS: MANUAL DIFF FLAG NO
[2024-11-14 15:30] LABS: Basophils Percent Auto 0.5 % (0-2); Eosinophils Absolute Auto 0.1 X10*3/uL (0.0-0.4); Eosinophils Percent Auto 2.4 % (0-4); Hematocrit 37.6 % (42.0-52.0); Hemoglobin 13.7 g/dl (14.0-18.0); Lymphocytes Absolute Auto 0.6 X10*3/uL (1.2-4.9); Lymphocytes Percent Auto 15.3 % (20-40); Mean Corpuscular HGB Conc 36.4 g/dl (31.0-36.0); Mean Corpuscular Hemoglobin 34.3 pg (27.0-33.0); Mean Corpuscular Volume 94.2 fL (80.0-98.0); Mean Platelet Volume 11.2 fL (9.4-12.4); Monocytes Absolute Auto 0.4 X10*3/uL (0.1-1.2); Neutrophils Percent Auto 71.8 % (45-73); Platelet Count 82 X10*3/uL (160-400); Red Blood Count 3.99 X10*6/uL (4.60-5.80); Red Cell Distribution Width 14.7 % (11.0-16.0); White Blood Count 4.1 X10*3/uL (4.8-10.8)
[2024-11-14 15:36] LABS: Lactic Acid 1.3 mmol/L (0.5-2.0)
[2024-11-14 15:45] LABS: Alanine Aminotransferase 40 U/L (0-40); Albumin Level 2.6 g/dL (3.5-5.0); Anion Gap 10 (12-20); Aspartate Amino Transferase 62 U/L (5-37); Beta-Hydroxybutyrate 0.09 mmol/L (0.02-0.27); Bilirubin Direct 0.4 mg/dL (0.0-0.5); Bilirubin Total 1.2 mg/dL (0.0-1.0); Blood Urea Nitrogen 14 mg/dL (9-16); Calcium 8.3 mg/dL (8.4-10.2); Carbon Dioxide 26 mmol/L (22-29); Chloride 110 mmol/L (96-108); Creatinine Clr Calc Pharmacy 62.8; Estimated Glomerular Filt Rate > 60; Glucose Random 212 mg/dL (60-115); Lactate Dehydrogenase 263 U/L (118-273); Lipase 11 U/L (8-78); Sodium 142 mmol/L (135-145); Total Protein 6.7 g/dL (6.5-8.0)
[2024-11-14 15:49] LABS: Color Urine Yellow; Glucose Urine UA 100 mg/dL (Negative); Leukocyte Esterase Urine Negative (Negative); Nitrite Urine Negative (Negative); PH 7.5 (5.0-9.0); Specific Gravity - Urine 1.015 (1.005-1.025); UMIC TRIGGER UACC YES; Urine Blood Small (1+) (Negative); Urine Ketones Negative (Negative); Urine Protein 300 (3+) mg/dL (Neg-Trace)
[2024-11-14 15:50] LABS: Appearance Urine Clear
[2024-11-14 15:56] LABS: Bacteria Urine None Seen (None Seen); Hyaline Casts Urine 0-2 /LPF (0-2); Squamous Epithelial Cell Urine 0-2 /HPF (0-2); WBC Urine 0-5 /HPF (0-5)
[2024-11-14 16:24] LABS: Alkaline Phosphatase 158 U/L (39-117)
[2024-11-14 17:08] LABS: Troponin-I High Sensitivity < 2.7 ng/L (<3.5-35.0)
[2024-11-14 19:01] VITALS: BP 138/77; PULSE 71; RESP 18; TEMP 36.6; O2SAT 98
[2024-11-14 19:17] VITALS: BP 154/86; PULSE 74; RESP 16; TEMP 36.7; O2SAT 99
[2024-11-14 19:26] VITALS: BP 154/86; PULSE 74; RESP 16; TEMP 36.7; O2SAT 99
== END 2024-11-14 19:28 | disposition home or self-care (01) ==
PROVIDERS: Physician Assistant Medical; Emergency Provider Emergency Medicine; PCP General Practice
DX: E11.65 Type 2 diabetes mellitus with hyperglycemia (principal); R53.1 Weakness; Z79.4 Long term (current) use of insulin; F17.210 Nicotine dependence, cigarettes, uncomplicated; Z79.899 Other long term (current) drug therapy
CPT/HCPCS: 36415; 80048; 80076; 81001; 82010; 82947; 83605; 83615; 83690; 84484; 85025; 93005; 99283; 99284

== ENCOUNTER → 2024-11-14 14:44 | Outpatient (BNV) | payer MEDICAID, SELFPAY | PROVIDERS: Emergency Provider Emergency Medicine; PCP General Practice; Visit Provider Internal Medicine | DX: R53.1 Weakness (principal) | CPT/HCPCS: 93010 ==

== ENCOUNTER 2024-12-04 08:46 | Outpatient (REF) | payer MEDICAID, SELFPAY ==
--- NOTE | ~2024-12-04 | US_ITS ---
CLINICAL HISTORY: K74.60 - Unspecified cirrhosis of liver US abdomen complete Comparison: None Findings: Pancreas not evaluated due to bowel gas. The aorta and inferior vena cava are normal caliber. Coarse hepatic echotexture compatible with known cirrhosis. Liver length measures 8.3 cm. 4 mm hepatic calcification/calcified granuloma. Small perihepatic ascites. There is no intrahepatic bile duct dilatation. The common duct is 8 mm in diameter. A few tiny gallbladder polyps not requiring further workup/follow-up. Gallbladder wall thickening secondary to the underlying hepatic disease. No gallstone. There is no sonographic Chavez sign. The main portal vein is antegrade. The right kidney is 9.5 cm in length. The left kidney is 12.4 cm in length. A few bilateral renal cysts measuring up to 19 mm and not requiring further follow-up/workup. Otherwise unremarkable kidneys. Enlarged spleen measuring 16.6 cm in length. No ascites. IMPRESSION: No hepatic mass lesion. Splenomegaly and small perihepatic ascites likely due to portal hypertension. Minimal dilated extrahepatic bile duct. This document has been electronically signed by: Huma Bob MD on 12/05/2024 10:37:02
== END 2024-12-04 08:47 | disposition home or self-care (01) ==
LOC: HO.US 08:46
PROVIDERS: PCP General Practice; Visit Provider Internal Medicine
DX: K74.60 Unspecified cirrhosis of liver (principal)
CPT/HCPCS: 76700

== ENCOUNTER → 2024-12-04 08:47 | Outpatient (BNV) | payer MEDICAID, SELFPAY | PROVIDERS: PCP General Practice; Visit Provider Radiology Diagnostic Radiology | DX: K74.60 Unspecified cirrhosis of liver (principal) | CPT/HCPCS: 76700 ==

== ENCOUNTER 2024-12-17 08:36 | Emergency (ER) | payer MEDICAID, SELFPAY ==
--- NOTE | ~2024-12-17 | CT_ITS ---
EXAMINATION: CT ABDOMEN AND PELVIS WITHOUT CONTRAST CLINICAL INFORMATION: Lower abdominal pain. Bloating. No bowel movement. COMPARISON: April 09, 2024. TECHNIQUE: Multidetector volumetric imaging was performed from the superior aspect of the liver through the pubic symphysis. Sagittal and coronal reformatted images were obtained on the technologist's workstation. This CT examination was performed using dose optimization techniques as appropriate, variously including the following: *Automated exposure control *Adjustment of mA and/or kV according to patient size (this includes techniques or standardized protocols for targeted exams where dose is matched to indication/reason for exam; i.e. extremities or head) *Use of iterative reconstruction technique. DLP: 247 mGy centimeter. FINDINGS: Limited evaluation of the intra-abdominal organs and vascular structures due to lack of IV contrast. LUNG BASES: No acute airspace disease. LIVER, GALLBLADDER, AND BILIARY TREE: Liver measures 8 cm with a nodular surface. Gallbladder is contracted. Thickened gallbladder wall. No intrahepatic or extrahepatic biliary ductal dilatation. PANCREAS: No peripancreatic fluid collections. SPLEEN: 15 cm. ADRENAL GLANDS: No nodular lesions. KIDNEYS AND URETERS: No hydronephrosis. Increased density with a cortical defect in the anterior midportion/upper pole right kidney. Cystic lesions both kidneys. BLADDER: Fluid-filled. GASTROINTESTINAL TRACT: Abundant stool throughout the large intestine mostly in the right hemicolon. Few scattered diverticula. No pericolonic edema pattern. No intestinal obstruction pattern. No pneumoperitoneum. No pneumatosis intestinalis. Appendix is normal. ABDOMINAL WALL: No gross umbilical hernia. LYMPH NODES: Mild prominent mesenteric and retroperitoneal lymph nodes, nonspecific. VASCULAR: No aneurysm, abdominal aorta. Soft tissue fullness in the gastroesophageal junction likely related to prominent varices. Prominent vessels in the splenorenal region. The umbilical vein is not enlarged. PELVIC VISCERA: Inadequate evaluation. OSSEOUS STRUCTURES: Spondylosis, L4-5 and L5-S1. No acute fracture or listhesis. Old healed rib fractures lower right hemithorax. CT/CT abdomen pelvis wo IV con IMPRESSION: Consider cirrhosis without overt ascites or intestinal obstruction pattern. Overall stable. Fleischner guidelines were followed. Electronically signed by: Britton Nathan MD 12/17/2024 01:07 PM LOI
[2024-12-17 08:42] VITALS: BP 172/93; PULSE 71; RESP 16; TEMP 36.6; O2SAT 100; BMI 22.0
[2024-12-17 09:42] LABS: Basophils Percent Auto 0.2 % (0-2); Eosinophils Absolute Auto 0.1 X10*3/uL (0.0-0.4); Eosinophils Percent Auto 2.8 % (0-4); Hematocrit 37.3 % (42.0-52.0); Hemoglobin 13.6 g/dl (14.0-18.0); Lymphocytes Absolute Auto 0.9 X10*3/uL (1.2-4.9); Lymphocytes Percent Auto 20.8 % (20-40); MANUAL DIFF FLAG NO; Mean Corpuscular HGB Conc 36.5 g/dl (31.0-36.0); Mean Corpuscular Hemoglobin 34.7 pg (27.0-33.0); Mean Corpuscular Volume 95.2 fL (80.0-98.0); Mean Platelet Volume 10.2 fL (9.4-12.4); Monocytes Absolute Auto 0.5 X10*3/uL (0.1-1.2); Monocytes Percent Auto 12.7 % (2-11); Neutrophils Absolute Auto 2.7 x10*3/uL (2.0-8.3); Neutrophils Percent Auto 63.5 % (45-73); Red Blood Count 3.92 X10*6/uL (4.60-5.80); Red Cell Distribution Width 14.2 % (11.0-16.0); White Blood Count 4.2 X10*3/uL (4.8-10.8)
[2024-12-17 09:43] LABS: Platelet Count 73 X10*3/uL (160-400)
[2024-12-17 09:44] LABS: Appearance Urine Clear; Color Urine Yellow; Glucose Urine UA 100 mg/dL (Negative); Leukocyte Esterase Urine Negative (Negative); Nitrite Urine Negative (Negative); PH 8.5 (5.0-9.0); Specific Gravity - Urine <= 1.005 (1.005-1.025); UMIC TRIGGER UACC YES; Urine Blood Small (1+) (Negative); Urine Ketones Negative (Negative); Urine Protein 100 (2+) mg/dL (Neg-Trace)
[2024-12-17 09:49] LABS: Bacteria Urine None Seen (None Seen); Hyaline Casts Urine 0-2 /LPF (0-2); Squamous Epithelial Cell Urine 0-2 /HPF (0-2); WBC Urine 0-5 /HPF (0-5)
[2024-12-17 09:56] LABS: Anion Gap 7 (12-20); Blood Urea Nitrogen 11 mg/dL (9-16); Calcium 8.3 mg/dL (8.4-10.2); Carbon Dioxide 27 mmol/L (22-29); Chloride 111 mmol/L (96-108); Creatinine Clr Calc Pharmacy 68.6; Estimated Glomerular Filt Rate > 60; Glucose Random 115 mg/dL (60-115); Sodium 141 mmol/L (135-145)
--- NOTE | 2024-12-17 12:22 | ED.MALEGU ---
HPI - Male Genitourinary General Chief complaint: Urogenital-Male Stated complaint: Low Bacl and Stomach Pain Time Seen by Provider: 12/17/24 15:55 History of Present Illness ED Provider: Tomy CORTEZ Narrative: The patient is a 54-year-old male with a history of HIV and type 2 diabetes who takes insulin. He also has a history of hepatitis-C and a history of cirrhosis. The patient says that he has been having intermittent abdominal pains for a few months. He sometimes feels that he has difficulty urinating. He sometimes feels that he has difficulty passing stools. He comes to the emergency room because of these symptoms. No definite fevers, sweats, chills. He says that he feels the pain across his lower abdomen primarily. His symptoms wax and wane. He sometimes feels bloated. He has no unilateral flank pain. 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 He says he has never been an like. He says he used to use drugs. Related Data Home Medications ?Medication ?Instructions ?Recorded ?Confirmed doxepin 25 mg capsule 25 mg PO BEDTIME 01/15/23 09/08/24 amiloride 5 mg tablet 10 mg PO DAILY 05/26/24 09/08/24 chlorhexidine gluconate 0.12 % PO 05/26/24 09/08/24 mouthwash oxycodone 5 mg tablet 5 mg PO Q6H PRN pain 05/26/24 09/08/24 Previous Rx's ?Medication ?Instructions ?Recorded gabapentin 400 mg capsule 800 mg (2 x 400 mg) PO BID #120 10/02/22 caps furosemide 20 mg tablet 40 mg (2 x 20 mg) PO QAM 30 days 10/27/22 #60 tabs bictegravir 50 mg-emtricitabine 1 tab PO DAILY 30 days #30 tabs 11/08/22 200 mg-tenofovir alafenam 25 mg tablet (Biktarvy) imiquimod 5 % topical cream packet 1 appl topical 3XW 14 days #12 ea 11/08/22 blood-glucose meter (FreeStyle #1 ea 03/09/23 Lite Meter kit) lancets 28 gauge (FreeStyle #100 ea 03/09/23 Lancets) carvedilol 3.125 mg tablet 6.25 mg (2 x 3.125 mg) PO BID #60 07/31/23 tabs atorvastatin 10 mg tablet 10 mg PO DAILY #90 tabs 08/27/23 blood sugar diagnostic (FreeStyle #100 strips 01/03/24 Lite Strips) insulin pump cartridge,automated #1 ea 04/10/24 dose,BT with controller subcutaneous (Omnipod 5 G6 Intro Kit (Gen 5) subcutaneous cartridge with controller) acetone (urine) test (Ketone Urine #50 ea 05/15/24 Test strips) blood-glucose sensor (Dexcom G7 #3 ea 05/15/24 Sensor device) glucagon 3 mg/actuation nasal 3 mg intranasal ONCE #2 ea 05/15/24 spray (Baqsimi) glucagon 3 mg/actuation nasal 3 mg intranasal ONCE PRN prn low 05/15/24 spray (Baqsimi) glucose and unconsious 30 days #2 ea pen needle, diabetic 32 gauge x #50 ea 05/15/24 (Comfort EZ Pen [place]) insulin pump cart,automated,BT #5 ea 07/09/24 (Omnipod 5 G6 Pods (Gen 5) subcutaneous cartridge) blood-glucose sensor (Dexcom G6 #3 ea 09/16/24 Sensor device) blood-glucose transmitter (Dexcom #1 ea 09/16/24 G6 Transmitter device) insulin glargine 100 unit/mL (3 10 unit (0.1 mL) subcut QPM #15 mL 09/16/24 mL) subcutaneous pen (Lantus Solostar U-100 Insulin) insulin lispro 100 unit/mL See Rx Instructions subcut DAILY 09/16/24 subcutaneous solution #20 mL polyethylene glycol 3350 17 17 g PO DAILY #238 grams 12/17/24 gram/dose oral powder (Miralax) Allergies Allergy/AdvReac Type Severity Reaction Status Date / Time No Known Allergies Allergy Verified 12/17/24 08:44 Review of Systems Review of Systems: Yes all other systems are reviewed and are negative PMFSH Past Medical History Medical History (Updated 12/17/24 @ 16:17 by Vikram Huitron MD) Housing insecurity Foreign body (FB) in soft tissue Diabetes mellitus type 2, uncomplicated, on manager long term care insulin pump Hepatitis C Cirrhosis Venereal warts HIV (human immunodeficiency virus infection) Diabetes mellitus Surgical History Hx of oral surgery History of esophagogastroduodenoscopy (EGD) Family History Family History Paternal Grandfather Colon cancer Social History Social History Alcohol intake: former Patient Tobacco Use Status: Current everyday Tobacco user Tobacco use type: Cigarette Cigarettes Per Day: 4 Substance Use Type: IV Drugs Do you have a plan to hurt others: No Plan Physical Exam Vital Signs: Vital Signs: Last Vital Signs Temp 97.9 F 12/17/24 08:42 Pulse 71 12/17/24 08:42 Resp 16 12/17/24 08:42 BP 172/93 H 12/17/24 08:42 Pulse Ox 100 12/17/24 08:42 O2 Del Method Room Air 12/17/24 08:42 BMI result Body Mass Index 22.0 Const: Other: The patient is a slim 54-year-old male who was awake and alert. He does not appear acutely ill. Orientation/consciousness: patient oriented x3 HEENT: Head: Yes normal to inspection Mouth: Normal oral and palatal mucosa present and moist mucous membranes Eyes: General: appearance normal, both eyes and all related structures Neck: Neck: Yes normal visual inspection, Yes full ROM and Yes no lymphadenopathy Resp: Effort & Inspection: normal respiratory effort Auscultation: clear to auscultation bilaterally Cardio: Rate: regular rate Rhythm: regular rhythm Heart sounds: S1 normal heart sound present and S2 normal heart sound present GI: Other: The abdomen is flat and soft. He reports tenderness in both lower quadrants and in his right upper quadrant. No rebound or guarding. Rectal exam did not reveal any acute hemorrhoids. Rectal tone was normal. No stool in the rectal vault. No impaction. : General: Yes no CVA tenderness Back/Spine/Pelvis: Back: no CVA tenderness Skin: Other: Skin is dry and unremarkable Neuro: General: patient oriented x3, tone normal, moves all extremities, no focal motor deficits and CN's II-XI intact bilaterally Extrem: General: Yes normal to inspection and Yes no pedal edema Course Course Course Narrative: This is a Rapid Medical Exam performed in triage by Calista Sharpe PA-C. Full HPI, ROS and PE to be performed by primary ED provider. 54-year-old male with a past medical history of diabetes, cirrhosis, hepatitis-C presenting to the ED c/o lower abdominal discomfort, bloating, and constipation without BM x2 days. Also reports difficulty urinating. Is passing flatus. PE: +abd bloating, +lower abd ttp, no rebound or guarding Plan: labs, UA, CTAP Medical Decision Making Medical Decision Making MDM Narrative: The patient is a 54-year-old male with a history of HIV, hepatitis-C, cirrhosis, and type 2 diabetes who presents with vague abdominal symptoms over several weeks to months. His abdomen seems fairly benign. He has no CVA percussion tenderness. He does not appear toxic or obviously acutely ill. His abdomen is nonsurgical. Investigations had been ordered at triage. White count is 4.2, hemoglobin 13.6, platelet count 73, no left shift Basic metabolic panel is unremarkable with normal renal function. LFT showed mild transaminitis and mildly elevated alk phos. Findings are similar to previous findings. Urinalysis shows a small amount of blood. CT scan of the abdomen and pelvis without contrast shows findings suggestive of cirrhosis without ascites. There is a lot of stool without intestinal obstruction. Overall the CT is stable. Since there is a lot of stool in the patient's colon on the CT scan the patient will be prescribed MiraLax. Otherwise he seems safe for discharge to follow up with his PCP. Lab Data 12/17/24 09:21 12/17/24 09:21 Labs: Lab Results 12/17/24 12/17/24 Range/Units 09:21 14:19 WBC 4.2 L (4.8-10.8) X10*3/uL RBC 3.92 L (4.60-5.80) X10*6/uL Hgb 13.6 L (14.0-18.0) g/dl Hct 37.3 L (42.0-52.0) % MCV 95.2 (80.0-98.0) fL MCH 34.7 H (27.0-33.0) pg MCHC 36.5 H (31.0-36.0) g/dl RDW 14.2 (11.0-16.0) % Plt Count 73 L (160-400) X10*3/uL MPV 10.2 (9.4-12.4) fL Immature Gran % (Auto) 0.0 (0.0-0.4) % Neut % (Auto) 63.5 (45-73) % Lymph % (Auto) 20.8 (20-40) % Villalba % (Auto) 12.7 H (2-11) % Eos % (Auto) 2.8 (0-4) % Baso % (Auto) 0.2 (0-2) % Lymph # (Auto) 0.9 L (1.2-4.9) X10*3/uL Villalba # (Auto) 0.5 (0.1-1.2) X10*3/uL Eos # (Auto) 0.1 (0.0-0.4) X10*3/uL Baso # (Auto) 0.0 (0.0-0.2) X10*3/uL Abs Immat Gran (auto) 0.00 (0.00-0.03) X10*3/uL Absolute Neuts (auto) 2.7 (2.0-8.3) x10*3/uL Absolute Nucleated RBC 0.000 (0.0-0.012) X10*3/uL Nucleated RBC % (auto) 0.0 (0.0-0.2) /100WBC Sodium 141 (135-145) mmol/L Potassium 4.0 (3.3-5.1) mmol/L Chloride 111 H (96-108) mmol/L Carbon Dioxide 27 (22-29) mmol/L Anion Gap 7 L (12-20) BUN 11 (9-16) mg/dL Creatinine 0.88 (0.5-1.4) mg/dL Estim Creat Clear Calc 68.6 Estimated GFR > 60 POC Glucose 342 H (60-115) mg/dL Random Glucose 115 (60-115) mg/dL Calcium 8.3 L (8.4-10.2) mg/dL Magnesium 1.9 (1.6-2.6) mg/dL Total Bilirubin 1.0 (0.0-1.0) mg/dL Direct Bilirubin 0.4 (0.0-0.5) mg/dL AST 107 H (5-37) U/L ALT 65 H (0-40) U/L Alkaline Phosphatase 164 H (39-117) U/L Total Protein 7.3 (6.5-8.0) g/dL Albumin 2.8 L (3.5-5.0) g/dL Lipase 18 (8-78) U/L Urine Color Yellow Urine Appearance Clear Urine pH 8.5 (5.0-9.0) Ur Specific [place] <= 1.005 (1.005-1.025) Urine Protein 100 (2+) H (Neg-Trace) mg/dL Urine Glucose (UA) 100 H (Negative) mg/dL Urine Ketones Negative (Negative) mg/dL Urine Blood Small (1+) H (Negative) Urine Nitrite Negative (Negative) Ur Leukocyte Esterase Negative (Negative) Urine RBC 11-20 H (0-2) /HPF Urine WBC 0-5 (0-5) /HPF Ur Squamous Epith Cells 0-2 (0-2) /HPF Urine Bacteria None Seen (None Seen) Hyaline Casts 0-2 (0-2) /LPF Discharge Plan Discharge Clinical Impression: Lower abdominal pain, Constipation Patient Disposition: Home, Self-Care Additional Instructions: Blood testing and your urine testing today seems reassuring. Your CT scan shows that you have a lot of stool in your colon. This may be causing some of your symptoms. I have sent a prescription for a product called MiraLax to your pharmacy. Please mix a capful of this powder in a large glass of water and take this every day for several days. My hope is that this will ?clean you out? and I hope this will help your symptoms. Also please follow up with your regular doctor to discuss your symptoms and your overall health. Return to the emergency room if significantly worse. Prescriptions: New polyethylene glycol 3350 [Miralax] 17 gram/dose powder 17 g PO DAILY Qty: 238 0RF No Action atorvastatin 10 mg tablet 10 mg PO DAILY Qty: 90 4RF (DME) FreeStyle Lite Strips Strip See Rx Instructions .ROUTE .COMPLEX Qty: 100 5RF Dose Instruction: DIRECTED-CHECKS 4 X/DAY Rx Instructions: DIRECTED-CHECKS 4 X/DAY (DME) Omnipod 5 G6 Intro Kit (Gen 5) Cartridge See Rx Instructions .Route Qty: 1 0RF Rx Instructions: As directed (DME) Omnipod 5 G6 Pods (Gen 5) Cartridge See Rx Instructions .Route Qty: 5 4RF Rx Instructions: As directed change every 72 hrs (DME) Dexcom G6 Sensor Device See Rx Instructions .ROUTE .COMPLEX Qty: 3 5RF Dose Instruction: DIRECTED CHANGE EVERY 10 DAYS Rx Instructions: DIRECTED CHANGE EVERY 10 DAYS (DME) Dexcom G6 Transmitter Device See Rx Instructions .Route Qty: 1 4RF Rx Instructions: As directed insulin glargine [Lantus Solostar U-100 Insulin] 100 unit/mL (3 mL) insulin pen 10 unit subcut QPM Qty: 15 5RF insulin lispro 100 unit/mL solution See Rx Instructions subcut DAILY Qty: 20 4RF Rx Instructions: Infuse up to 50 units per day via insulin pump subcutaneously daily; gabapentin 400 mg capsule 800 mg PO BID Qty: 120 2RF carvedilol 3.125 mg tablet 6.25 mg PO BID Qty: 60 2RF Rx Instructions: must administer with a meal/food furosemide 20 mg tablet 40 mg PO QAM 30 Days Qty: 60 2RF doxepin 25 mg capsule 25 mg PO BEDTIME imiquimod 5 % cream in packet 1 appl topical 3XW 14 Days Qty: 12 2RF Biktarvy 50-200-25 mg tablet 1 tab PO DAILY 30 Days Qty: 30 0RF (DME) blood-glucose meter [FreeStyle Lite Meter] Kit See Rx Instructions .Route Qty: 1 0RF Rx Instructions: As directed ([facility] [place] [facility] [place] lancets [FreeStyle Lancets] 28 gauge misc See Rx Instructions .Route Qty: 100 4RF Rx Instructions: As directed checks 4 X/day oxycodone 5 mg tablet 5 mg PO Q6H PRN (Reason: pain) chlorhexidine gluconate 0.12 % mouthwash PO amiloride 5 mg tablet 10 mg PO DAILY (DME) Dexcom G7 Sensor Device See Rx Instructions .ROUTE .MEDSUPPLY Qty: 3 11RF Rx Instructions: As directed every 10 days (DME) Ketone Urine Test Strip See Rx Instructions .Route Qty: 50 1RF Rx Instructions: As directed prn tid for sugar above 250 or nausea/vomiting Baqsimi 3 mg/actuation spray,non-aerosol 3 mg intranasal ONCE Qty: 2 4RF (DME) pen needle, diabetic [Comfort EZ Pen [place]] 32 gauge x 5/32 needle See Rx Instructions .Route Qty: 50 1RF Rx Instructions: As directed for prn use with insulin tid Baqsimi 3 mg/actuation spray,non-aerosol 3 mg intranasal ONCE PRN (Reason: prn low glucose and unconsious) 30 Days Qty: 2 1RF Referrals: Mercedes Luna MD [Primary Care Provider] - (Constipation, chronic intra-abdominal findings on CT scan) Print Language: Arabic
[2024-12-17 13:03] LABS: Alanine Aminotransferase 65 U/L (0-40); Albumin Level 2.8 g/dL (3.5-5.0); Alkaline Phosphatase 164 U/L (39-117); Aspartate Amino Transferase 107 U/L (5-37); Bilirubin Direct 0.4 mg/dL (0.0-0.5); Lipase 18 U/L (8-78); Magnesium 1.9 mg/dL (1.6-2.6); Total Protein 7.3 g/dL (6.5-8.0)
[2024-12-17 14:24] LABS: Glucose, Whole Blood 342 mg/dL (60-115)
--- NOTE | 2024-12-17 14:25 | PC.NURSE ---
POC obtained per pt request, pt had his own insulin which he gave himself with ok of PIT provider
[2024-12-17 16:18] VITALS: BP 133/80; PULSE 69; RESP 16; TEMP 36.4; O2SAT 100
[2024-12-17 17:09] VITALS: BP 133/80; PULSE 69; RESP 16; TEMP 36.4; O2SAT 100
== END 2024-12-17 17:12 | disposition home or self-care (01) ==
PROVIDERS: Physician Assistant; Emergency Provider Emergency Medicine; PCP General Practice
DX: R10.30 Lower abdominal pain, unspecified (principal); K59.00 Constipation, unspecified; Z21 Asymptomatic human immunodeficiency virus [HIV] infection status; E11.9 Type 2 diabetes mellitus without complications; Z79.4 Long term (current) use of insulin
CPT/HCPCS: 36415; 74176; 80048; 80076; 81001; 82947; 83690; 83735; 85025; 99283; 99284

== ENCOUNTER → 2024-12-17 12:18 | Outpatient (BNV) | payer MEDICAID, SELFPAY | PROVIDERS: PCP General Practice; Visit Provider Radiology Diagnostic Radiology | DX: R10.84 Generalized abdominal pain (principal) | CPT/HCPCS: 74176 ==

== ENCOUNTER 2024-12-22 10:47 | Outpatient (REF) | payer MEDICAID, SELFPAY | END 2024-12-22 10:48 | disposition home or self-care (01) | LOC: HO.LAB 10:47 | PROVIDERS: PCP General Practice; Visit Provider Internal Medicine | DX: Z13.89 Encounter for screening for other disorder (principal) ==

== ENCOUNTER 2025-01-01 10:42 | Outpatient (AMB) | payer MEDICAID, SELFPAY ==
--- NOTE | 2025-01-01 10:54 | A.OFFVIS_ITS ---
Intake Intake Visit Reasons: Dexcom G7 Thrasher Feeder Required: No Accompanied by: Self / Same As Patient Allergies No Known Allergies Allergy (Verified 12/17/24 08:44) HPI Comprehensive Diabetes Asmnt Most Recent Diabetes Results: Creatinine 0.88 mg/dL (0.5-1.4) 12/17/24 Blood Urea Nitrogen 11 mg/dL (9-16) 12/17/24 Sodium 141 mmol/L (135-145) 12/17/24 Potassium 4.0 mmol/L (3.3-5.1) 12/17/24 Chloride 111 mmol/L (96-108) H 12/17/24 Carbon Dioxide 27 mmol/L (22-29) 12/17/24 Calcium 8.3 mg/dL (8.4-10.2) L 12/17/24 AST 107 U/L (5-37) H 12/17/24 ALT 65 U/L (0-40) H 12/17/24 Total Protein 7.3 g/dL (6.5-8.0) 12/17/24 Albumin 2.8 g/dL (3.5-5.0) L 12/17/24 [facility] Medical History (Updated 12/18/24 @ 00:01 by Bibiana Frye) Housing insecurity Foreign body (FB) in soft tissue Diabetes mellitus type 2, uncomplicated, on residential insulin pump Hepatitis C Cirrhosis Venereal warts HIV (human immunodeficiency virus infection) Diabetes mellitus Surgical History Hx of oral surgery History of esophagogastroduodenoscopy (EGD) Family History Paternal Grandfather Colon cancer Social History Alcohol intake: former Patient Tobacco Use Status: Current everyday Tobacco user Tobacco use type: Cigarette Cigarettes Per Day: 4 Substance Use Type: IV Drugs Assessment & Plan Assessment & Plan (1) Diabetes mellitus type 2, uncomplicated, on residential insulin pump: Code(s): E11.9 - Type 2 diabetes mellitus without complications; Z96.41 - Presence of insulin pump (external) (internal) Plan The following topics were reviewed today: Pt is still off pump, he was supposed to transition from Dexcom G6 to Dexcom G7 sensors at today's visit but he did not bring Omnipod management accounts manager so we were unable to complete transition Demonstrated to patient on Omnipod 5 simulator how to switch from Dexcom G6 sensors to Dexcom G7 sensors. Patient reports he will reinitiate pump therapy this afternoon. Patient stated he understood Omnipod user ID: [id number] Password: [email or web address] Instructed patient to only use room temperature insulin, how to load cartridge or fill pod, with insulin. Fill tubing and cannula (if applicable) Troubleshooting after starting new pod or inserting new insulin set: Occlusion, adhesive tape sensitivity, redness Check BG 2 hours after site change Safety information: Importance of a backup plan, for manual injections, proper prescriptions and emergency supplies ketone strips, and rules for testing for ketones Patient understands the basic concepts of pump therapy, how to give insulin for meals and snacks, how to troubleshoot for hyper and hypoglycemia. Setting verified by CDCES, no changes to pump settings Basal rate(s) (units/hour) : 12 AM? to 12 AM? 0.5 units / hr Bolus setting Insulin Carbohydrate Ratio (s) 12 AM? to 12 AM? 1:14 Correction Factor / Sensitivity Factor 12 AM? to 12 AM? 1:50 Active Insulin Time:? 4 hours Target(s): 12 AM? to 12 AM? 120 mg/dL Correction Threshold 130 mg/dL Patient Instructions: Patient will follow-up with critical care educator in 2 weeks Coding Level of Care Code Est Pt Level 1 (10457) Diagnoses Diabetes mellitus type 2, uncomplicated, on residential insulin pump E11.9; Z96.41
== END 2025-01-01 10:56 | disposition home or self-care (01) ==
LOC: HO.ENCR 10:42
PROVIDERS: PCP General Practice; Visit Provider Registered Nurse Diabetes Educator
DX: E11.9 Type 2 diabetes mellitus without complications (principal); Z96.41 Presence of insulin pump (external) (internal)

== ENCOUNTER → 2025-01-01 10:42 | Outpatient (BNVA) | payer MEDICAID, SELFPAY | PROVIDERS: PCP General Practice; Visit Provider Registered Nurse Diabetes Educator | DX: E11.9 Type 2 diabetes mellitus without complications (principal); Z96.41 Presence of insulin pump (external) (internal); Z79.4 Long term (current) use of insulin | CPT/HCPCS: 99211 ==

== ENCOUNTER 2025-01-05 10:06 | Outpatient (AMB) | payer MEDICAID, SELFPAY ==
--- NOTE | 2025-01-05 10:46 | MHC.OFFVIS ---
Vital Signs 01/05/25 10:48 Height 5 ft Weight 108 lb 0.424 oz BMI 21.1 BP 141/78 H Blood Pressure Location Lt brachial Position Sitting Pulse 74 Intake Visit Reasons: 6 month f/u US Intake Note: Jamal presents in the office as a 6 month follow up. CC: here for results of his Ultrasound. Bloating in the stomach, liquid stools and some times he has hard stools because he has issues for his BM and pains in the stomach. When he does not take his medication he will have liquid stools. Allergies No Known Allergies Allergy (Verified 12/17/24 08:44) HPI Comments Details: 52 y.o M with PMH of decompensated cirrhosis (ascites, HE), HCV, HIV on Biktarvy x 6 years, who is here to establish care. Accompanied by nephad Hartley. 10/27/22: Moved from [place] a month ago. 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 Reports being told about HCV almost 20 years ago. Thinks may be was sexually transmitted, reports remote hx of IVDU. Not aware of hepatitis status of family/first degree relatives. Drinks etOH socially may be 2-3 times a year. Former smoker. Was diagnosed with cirrhosis almost 11 months ago when he developed ascites. Has been on lasix 20mg and spironolactone 50mg since then. Often has to get paracentesis every week. Also had an admission for hepatic encephaloapthy a few months ago and now takes lactulose, although does report that is not taking it daily. Had an EGD in April/May 2022 - had small varices. Has been on coreg since then. Never had a colonoscopy. Last ultrasound was may be 3-4 months ago, not aware of findings. Also has concurrent HIV, on Biktarvy through dept of public health. 11/28/22: Took spironolactone for only 3 weeks before he started noticing breast tenderness and enlargement so he discontinued the medication. However, when he was taking the medication, notice significant improvement in his ascites. Has not started watching his salt intake yet. Today, he also mentions that almost a year ago, when he was incarcerated, he was found to have a 2.5 cm spot on his liver. He was initially told this could be cancer. He then underwent a biopsy. However, does not recall what he was told. Also does not recall getting any treatment including resection, locoregional or systemic therapy. This is the first time pt brought up this information. Pt insists he did report this to the ER provider who referred him to GI however I do not see any previous documentation. Has been seen by ID for HIV, continues on biktarvy. 01/02/23 US Abd: 1. Heterogeneous liver with a 1.6 cm mass adjacent to the gallbladder fossa. MRI is recommended for further evaluation. 2. Thickened gallbladder wall with fluid in the wall and gallbladder polyp. Please correlate clinically. 01/15/23: Records were reviewed from [facility]. Was admitted in the hospital August 2022 for altered mental status and found to have 5 cm liver mass 5 cm on MRI. A liver biopsy was completed how inadequate sample was obtained. Repeat IR guided biopsy was not pursued due to necrosis. Plan was for interval AFP and MRI. He was not deemed a transplant candidate by that facility due to relapse of substance use and poor social support. Today, going for his MRI after this appt. Main complaint is unchanged which is R sided abd pain that goes to both his flanks, intermittent, cramping in nature. Otherwise, no nausea, vomiting, changes in appetite, or stool. Has been taking his Lasix and amiloride. Due for blood work. Salt restriction remains a barrier although patient has been trying to limit Na intake as much as possible. Remains abstinent from substance use x more than 2 years. EtOH use limited to 2-3 times a year. MRI 01/25/23: *? Cirrhotic liver, varices and splenomegaly. *? No imaging evidence of hepatocellular carcinoma. *? Compared to prior MRI from 08/26/2022, there has been resolution of the complex rim-enhancing lesion of segment 4 that previously measured up to approximately 5 cm. Instead, this follow-up MRI shows a small 0.8 cm focus of intrinsic T1 signal shortening from blood products or proteinaceous material at the site of the suspected abscess. No interval development of a hyperenhancing liver lesion or lymphadenopathy.? 03/28/23: No acute issues today. Feels that ascites is pretty much gone despite some nondiscretion with dietary salt. Has not had any confusional spells so he has reduced lactulose to 3-4 times per week. Energy levels are good. No report of abd pain, N,V, fatigue. MRI results were already relayed to him. 07/31/23: EGD/colo: 1. Esophageal varices (banding) 2. Portal hypertensive gastropathy 3. Portal hypertensive duodenopathy 4. Normal colon and terminal ileum mucosa 5. Total of 3 polyps removed 6. Medium internal hemorrhoids Path: A. Duodenum, biopsy: Duodenal mucosa with preserved villi and no specific change. B. Colon, transverse, polyps: Tubular adenoma, one; negative for high-grade dysplasia and carcinoma. C. Colon, sigmoid, polyp: Consistent with hyperplastic polyp 11/30/23: Here for follow up after his EGD/colo as well as completion of HCV tx. Has been doing well. No gastrointestinal complaints. No abd distention. Does not report trouble concentrating. No N/V/D. No blood in stool. Not completely adherent to salt restriction but has also not noticed any increase in abd girth. Reports good energy levels. Completed Epclusa 09/2023. Due for SVR12 labs. Last MRI was January 2023 - overdue for repeat imaging. Current meds: Carvedilol 6.25 BID Furosemide 20 once daily 05/26/24: Doing well from cirrhosis standpoint. HCV tx completed s/p SVR 12 in nov 2023. Currently no gastrointestinal complaints. Recently had dental work done so still has significant facial pain. Was prescribed Abx but did not take them yet. Labs reviewed and reassuring. Due for abd imaging for HCC screening. 01/05/25: Recently houseless, was unable to pay rent and was also buying pain meds off the street. Currently sharing space with his nephew. Reports worsening back pain and lower abd pain worse donna since hes been lifting heavy furniture to move.Was seen in ER for lower back and lower abd pain as well. LFTs done at ER visit were higher than baseline. Pt has since then discontinued getting oxy from the street. Current meds: Amiloride 10 mg daily Carvedilol 3.25 once daily Furesomide 20 mg once daily PFSH Medical History Housing insecurity Foreign body (FB) in soft tissue Diabetes mellitus type 2, uncomplicated, on alf insulin pump Hepatitis C Cirrhosis Venereal warts HIV (human immunodeficiency virus infection) Diabetes mellitus Surgical History Hx of oral surgery History of esophagogastroduodenoscopy (EGD) Family History Paternal Grandfather Colon cancer Social History Alcohol intake: former Patient Tobacco Use Status: Current everyday Tobacco user Tobacco use type: Cigarette Cigarettes Per Day: 4 Substance Use Type: IV Drugs Review of Systems Const All systems reviewed & are unremarkable except as noted in HPI and below Physical Exam Vital Signs: Last Vital Signs Pulse 74 01/05/25 10:48 BP 141/78 H 01/05/25 10:48 BMI result Body Mass Index 21.1 Gen appear: No acute distress HEENT: no icterus, no cervical lymphadenopathy, temporal wasting Chest: No overt resp distress Spine: no point tenderness, R lumbrical mildly tender to deep palpation Neuro: A/Ox3 noted to move all extremities spontaneously, no asterixis Ext: no peripheral edema, spider angioma on chest Assessment & Plan Assessment & Plan (1) Hepatic cirrhosis due to chronic hepatitis C infection: Code(s): B18.2 - Chronic viral hepatitis C; K74.60 - Unspecified cirrhosis of liver Category: Medical (2) HIV (human immunodeficiency virus infection): Code(s): B20 - Human immunodeficiency virus [HIV] disease Category: Medical (3) Hepatitis B core antibody positive: Code(s): R76.8 - Other specified abnormal immunological findings in serum Category: Medical (4) Liver mass: Code(s): R16.0 - Hepatomegaly, not elsewhere classified Category: Medical (5) FDC current use of diuretic: Code(s): Z79.899 - Other principal network 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 Overall doing well from cirrhosis standpoint. However cautioned him re use of street drugs. Reviewed elevation in LFTs. Pt has since then DCed anyway. - Ascites/peripheral edema: No ascites on exam today. Cont Amiloride 10mg. DECREASE furosemide 20mg. Low salt 2g diet reinforced. Pt was also advised to weigh himself frequently and to call office for weight gain of 3lbs in 2days or 5 lbs in 7 days. - Variceal screening: Last EGD 07/2023. On Coreg 3.125 mg ONCE daily. Advised to INCREASE to BID for primary prophylaxis. Repeat EGD due - ordered. - HCC screening: CT triple phase ordered. - Resolved HBV status: will need prophylaxis prior to any immunosuppression. - Hepatic encephalopathy: None on hx/exam today. Educated on early s/sx of encephalopathy in which case he is to resume lactulose for goal 2-3 BMs per day. Avoid benzos, opiates, Benadryl and other OTC sedatives. - Pain control: NSAIDs to be completely avoided. Also reviewed avoidance of opiates due to hx of HE as above. Tylenol up to 2g/day is okay. - Nutrition: Reviewed 2g Na diet as above. Do not restrict protein. Add a night time snack to avoid prolonged period of fasting. - CRC screening: Had x1 tubular adenoma on colo 07/2023. Repeat recommended in 2029. - Labs: Updated MELD labs ordered. - HIV coinfection: reminded to re-establish care with ID. Cont Biktarvy. Follow up in 3months. 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
[2025-01-05 10:48] VITALS: BP 141/78; PULSE 74; BMI 21.1
== END 2025-01-05 11:14 | disposition home or self-care (01) ==
LOC: HO.HGI 10:06
PROVIDERS: PCP General Practice; Visit Provider Internal Medicine
DX: B18.2 Chronic viral hepatitis C (principal); K74.60 Unspecified cirrhosis of liver; B20 Human immunodeficiency virus [HIV] disease; R76.8 Other specified abnormal immunological findings in serum; R16.0 Hepatomegaly, not elsewhere classified; Z79.899 Other long term (current) drug therapy; Z79.2 Long term (current) use of antibiotics; F11.90 Opioid use, unspecified, uncomplicated
CPT/HCPCS: 99214

== ENCOUNTER → 2025-01-05 10:06 | Outpatient (BNVA) | payer MEDICAID, SELFPAY | PROVIDERS: PCP General Practice; Visit Provider Internal Medicine | DX: K74.60 Unspecified cirrhosis of liver (principal); B18.2 Chronic viral hepatitis C; B20 Human immunodeficiency virus [HIV] disease; R76.8 Other specified abnormal immunological findings in serum; R16.0 Hepatomegaly, not elsewhere classified; F11.90 Opioid use, unspecified, uncomplicated; Z79.2 Long term (current) use of antibiotics; Z79.899 Other long term (current) drug therapy | CPT/HCPCS: 99212 ==

== ENCOUNTER 2025-01-15 10:47 | Outpatient (REF) | payer MEDICAID, SELFPAY | END 2025-01-15 10:48 | disposition home or self-care (01) | LOC: HO.LAB 10:47 | PROVIDERS: Absent Provider Internal Medicine; PCP General Practice; Visit Provider Internal Medicine | DX: Z13.89 Encounter for screening for other disorder (principal) ==

== ENCOUNTER 2025-01-24 10:19 | Emergency (ER) | payer MEDICAID, SELFPAY ==
--- NOTE | ~2025-01-24 | XR_ITS ---
CLINICAL HISTORY: FB great toe 4 view right foot Comparison: None Findings: There is faint slightly radiopaque foreign material just medial to the mid 1st proximal phalanx. No significant arthritic change or erosions. No ankle effusion. No radiopaque foreign body. IMPRESSION: There is faint slightly radiopaque foreign material just medial to the mid 1st proximal phalanx. This document has been electronically signed by: Rishi Vera MD on 01/24/2025 11:47:19
[2025-01-24 10:32] VITALS: BP 142/78; PULSE 73; RESP 16; TEMP 36.4; O2SAT 99; BMI 21.7
--- NOTE | 2025-01-24 10:35 | ED.GENADULT ---
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 Denies injury to other area, numbness, tingling, weakness, drainage, bleeding Related Data Home Medications ?Medication ?Instructions ?Recorded ?Confirmed doxepin 25 mg capsule 25 mg PO BEDTIME 01/15/23 09/08/24 amiloride 5 mg tablet 10 mg PO DAILY 05/26/24 09/08/24 chlorhexidine gluconate 0.12 % PO 05/26/24 09/08/24 mouthwash oxycodone 5 mg tablet 5 mg PO Q6H PRN pain 05/26/24 09/08/24 insulin pump cart,auto,BT,G6/7 #5 ea 01/05/25 (Omnipod 5 G6-G7 Pods (Gen 5) subcutaneous cartridge) Previous Rx's ?Medication ?Instructions ?Recorded gabapentin 400 mg capsule 800 mg (2 x 400 mg) PO BID #120 10/02/22 caps bictegravir 50 mg-emtricitabine 1 tab PO DAILY 30 days #30 tabs 11/08/22 200 mg-tenofovir alafenam 25 mg tablet (Biktarvy) imiquimod 5 % topical cream packet 1 appl topical 3XW 14 days #12 ea 11/08/22 blood-glucose meter (FreeStyle #1 ea 03/09/23 Lite Meter kit) lancets 28 gauge (FreeStyle #100 ea 03/09/23 Lancets) atorvastatin 10 mg tablet 10 mg PO DAILY #90 tabs 08/27/23 blood sugar diagnostic (FreeStyle #100 strips 01/03/24 Lite Strips) insulin pump cartridge,automated #1 ea 04/10/24 dose,BT with controller subcutaneous (Omnipod 5 G6 Intro Kit (Gen 5) subcutaneous cartridge with controller) acetone (urine) test (Ketone Urine #50 ea 05/15/24 Test strips) glucagon 3 mg/actuation nasal 3 mg intranasal ONCE #2 ea 05/15/24 spray (Baqsimi) glucagon 3 mg/actuation nasal 3 mg intranasal ONCE PRN prn low 05/15/24 spray (Baqsimi) glucose and unconsious 30 days #2 ea pen needle, diabetic 32 gauge x #50 ea 05/15/24 5/32 (Comfort EZ Pen [place]) insulin pump cart,automated,BT #5 ea 07/09/24 (Omnipod 5 G6 Pods (Gen 5) subcutaneous cartridge) insulin glargine 100 unit/mL (3 10 unit (0.1 mL) subcut QPM #15 mL 09/16/24 mL) subcutaneous pen (Lantus Solostar U-100 Insulin) polyethylene glycol 3350 17 17 g PO DAILY #238 grams 12/17/24 gram/dose oral powder (Miralax) blood-glucose sensor (Dexcom G7 #3 ea 12/23/24 Sensor device) furosemide 20 mg tablet 20 mg PO QAM 30 days #30 tabs 01/05/25 carvedilol 6.25 mg tablet 6.25 mg PO BID 90 days #180 tabs 01/06/25 insulin lispro 100 unit/mL See Rx Instructions subcut DAILY 01/14/25 subcutaneous solution #20 mL cephalexin 500 mg capsule 500 mg PO QID 7 days #28 caps 01/24/25 Allergies Allergy/AdvReac Type Severity Reaction Status Date / Time No Known Allergies Allergy Verified 01/24/25 10:38 Review of Systems Review of Systems: Yes all other systems are reviewed and are negative Constitutional: Constitutional: Reports as per [facility] Past Medical History Attestation statement: The following information was validated with the patient. Source: old records reviewed Medical History Housing insecurity Foreign body (FB) in soft tissue Diabetes mellitus type 2, uncomplicated, on roasterman insulin pump Hepatitis C Cirrhosis Venereal warts HIV (human immunodeficiency virus infection) Diabetes mellitus Surgical History Hx of oral surgery History of esophagogastroduodenoscopy (EGD) Family History Family History Paternal Grandfather Colon cancer Social History Social History Alcohol intake: former Patient Tobacco Use Status: Current everyday Tobacco user Tobacco use type: Cigarette Cigarettes Per Day: 4 Substance Use Type: IV Drugs Advance Directives: No Advance Directives Information Provided: No Do you have a plan to hurt others: No Plan Physical Exam ED Vital Signs: Vital Signs - 24 hr 01/24/25 10:32 Temperature 97.6 F Pulse Rate 73 Respiratory Rate 16 Blood Pressure 142/78 H Pulse Oximetry 99 Oxygen Delivery Method Room Air BMI result Body Mass Index 21.7 Const General: cooperative, healthy appearing and no acute distress Orientation/consciousness: patient oriented x3 Limitations: no limitations HENMT Head: Yes normal to inspection and Yes atraumatic Ears: hearing grossly normal bilaterally General nose exam: Normal external nose present Face and sinus: Yes normal facial exam Eyes General: appearance normal, both eyes and all related structures EOM: EOMs intact bilaterally Neck Neck: Yes normal visual inspection and Yes no meningeal signs Resp Effort & Inspection: normal respiratory effort and no respiratory distress Cardio Rate: regular rate Skin Other: + visible/palpable foreign body noted to medial aspect of right great toe. No active bleeding. No surrounding erythema, no fluctuance/induration. Mildly tender. Rashes: no rashes Wounds: no wounds Neuro General: patient oriented x3, tone normal and no meningeal signs Cranial nerves: Yes CN's II-XII intact bilaterally Gait exam (Neuro): Normal gait present Extrem General: Yes normal to inspection Course Course Course Narrative: This is a rapid medical exam performed by Hien Paula NP: Additional HPI, ROS, PE not included below will be deferred to primary provider. Patient is a 54-year-old male with history of T2DM, HIV, hepatitis C, cirrhosis presenting to the ED with complaint of toothpick embedded in right great toe. 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 Has photo on his phone. Unsure last tdap. Plan: xray XR foot RT min 3V IMPRESSION: There is faint slightly radiopaque foreign material just medial to the mid 1st proximal phalanx. Results discussed with patient including worrisome signs and symptoms and strict return precautions, and when to return to the emergency department. They verbalized understanding and feel safe for discharge at this time. Medications Administered Discontinued Medications Generic Name Dose Route Start Last Admin Trade Name Chi PRN Reason Stop Dose Admin Diphtheria/Tetanus/Acell Pertussis 0.5 ml 01/24/25 10:39 01/24/25 10:50 Diphth,Pertus(Acell),Tet Adult 0.5 Ml Syringe IM 01/24/25 10:40 0.5 ml .ONCE ONE Administration Lidocaine HCl 5 ml 01/24/25 11:08 01/24/25 11:27 Lidocaine Hcl 1 % Mpf 5 Ml Vial INFILTRATI 01/24/25 11:09 5 ml ONCE ONE Administration Procedures Foreign Body Removal Site: right and foot Description of foreign body: other (wood) Technique: manual removal (w/elodia) Confirmed by:: direct visualization Complications: none Post-procedure exam: awake, alert Neurovascular: normal distal pulse, normal capillary fill, distal light touch sensation intact, distal motor function normal, no signs of compartment syndrome and no change from pre-procedure Medical Decision Making Medical Decision Making MDM Narrative: 54-year-old male with a past medical history of diabetes, HIV (undetectable per patient), hepatitis, cirrhosis, presenting to the ED complaining of toothpick imbedded to right great toe s/p accidentally stepping on it 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 On exam vital signs stable, NAD, nontoxic appearing, physical exam as noted above. Concern for foreign body to right great toe. Low suspicion for fracture. No evidence of acute infection/cellulitis or abscess. Unlikely osteo Plan: X-ray ordered in triage, update tetanus, foreign body removal Please refer to course for remaining clinical decision making, interpretation of labs/imaging results, and discussions with consultants and/or family members. Differential Diagnosis Differential Diagnoses: The differential diagnosis associated with the presentation includes As above Independent Interpretation I performed an independent interpretation of an: Plain X-Ray Radiology Impression Discussion of test interpretation with radiology: I have reviewed the radiologist's reading. External Record Review External record reviewed: Inpatient record, Office record, Outpatient record, Prior outpatient labs, Prior outpatient radiology, Primary care record and Outside ED record Tests considered The following testing was considered but not selected: As above Prescription Management I considered prescription management with: Pain Medication and Antibiotic Chronic Conditions Patient?s care impacted by: Diabetes Social Determinants Patient?s care significantly limited by Social Determinants of Health including: Inadequate housing, Low income, Alcoholism and drug addiction in family and Problems related to primary support group Discharge Plan Discharge Clinical Impression: Foreign body in foot Patient Disposition: Home, Self-Care Instructions: Puncture Wound (DC) Additional Instructions: The tooth tick was removed from your foot. Your tetanus was updated Keflex as an antibiotic please take as prescribed until completion If area begins to look infected, is red, there is pus drainage, you fever or increasing pain return to the ED Prescriptions: New cephalexin 500 mg capsule 500 mg PO QID 7 Days Qty: 28 0RF No Action atorvastatin 10 mg tablet 10 mg PO DAILY Qty: 90 4RF (DME) FreeStyle Lite Strips Strip See Rx Instructions .ROUTE .COMPLEX Qty: 100 5RF Dose Instruction: DIRECTED-CHECKS 4 X/DAY Rx Instructions: DIRECTED-CHECKS 4 X/DAY (DME) Omnipod 5 G6 Intro Kit (Gen 5) Cartridge See Rx Instructions .Route Qty: 1 0RF Rx Instructions: As directed (DME) Omnipod 5 G6 Pods (Gen 5) Cartridge See Rx Instructions .Route Qty: 5 4RF Rx Instructions: As directed change every 72 hrs insulin glargine [Lantus Solostar U-100 Insulin] 100 unit/mL (3 mL) insulin pen 10 unit subcut QPM Qty: 15 5RF (DME) Dexcom G7 Sensor Device See Rx Instructions .ROUTE .MEDSUPPLY Qty: 3 11RF Rx Instructions: As directed every 10 days carvedilol 6.25 mg tablet 6.25 mg PO BID 90 Days Qty: 180 2RF Rx Instructions: must administer with a meal/food insulin lispro 100 unit/mL solution See Rx Instructions subcut DAILY Qty: 20 4RF Rx Instructions: Infuse up to 50 units per day via insulin pump subcutaneously daily; gabapentin 400 mg capsule 800 mg PO BID Qty: 120 2RF polyethylene glycol 3350 [Miralax] 17 gram/dose powder 17 g PO DAILY Qty: 238 0RF doxepin 25 mg capsule 25 mg PO BEDTIME imiquimod 5 % cream in packet 1 appl topical 3XW 14 Days Qty: 12 2RF Biktarvy 50-200-25 mg tablet 1 tab PO DAILY 30 Days Qty: 30 0RF (DME) blood-glucose meter [FreeStyle Lite Meter] Kit See Rx Instructions .Route Qty: 1 0RF Rx Instructions: As directed (DME) lancets [FreeStyle Lancets] 28 gauge misc See Rx Instructions .Route Qty: 100 4RF Rx Instructions: As directed checks 4 X/day oxycodone 5 mg tablet 5 mg PO Q6H PRN (Reason: pain) chlorhexidine gluconate 0.12 % mouthwash PO amiloride 5 mg tablet 10 mg PO DAILY (DME) Ketone Urine Test Strip See Rx Instructions .Route Qty: 50 1RF Rx Instructions: As directed prn tid for sugar above 250 or nausea/vomiting Baqsimi 3 mg/actuation spray,non-aerosol 3 mg intranasal ONCE Qty: 2 4RF (DME) pen needle, diabetic [Comfort EZ Pen [place]] 32 gauge x /32 needle See Rx Instructions .Route Qty: 50 1RF Rx Instructions: As directed for prn use with insulin tid Baqsimi 3 mg/actuation spray,non-aerosol 3 mg intranasal ONCE PRN (Reason: prn low glucose and unconsious) 30 Days Qty: 2 1RF (DME) Omnipod 5 G6-G7 Pods (Gen 5) Cartridge See Rx Instructions subcut Q3D Qty: 5 Rx Instructions: As directed furosemide 20 mg tablet 20 mg PO QAM 30 Days Qty: 30 2RF Referrals: Mercedes Luna MD [Primary Care Provider] - 5 days Print Language: Romanian
[2025-01-24] MEDS: Diphth,Pertus(ACell),Tet Adult 0.5 ML SYRINGE IM (10:50)
[2025-01-24] MEDS: Lidocaine HCl 1 % MPF 5 ML VIAL INFILTRATI (11:27)
[2025-01-24 11:59] VITALS: BP 142/78; PULSE 73; RESP 16; TEMP 36.4; O2SAT 99
== END 2025-01-24 11:59 | disposition home or self-care (01) ==
PROVIDERS: Emergency Provider Emergency Medicine; PCP General Practice
DX: M60.271 Foreign body granuloma of soft tissue, not elsewhere classified, right ankle and foot (principal); M79.671 Pain in right foot; Z23 Encounter for immunization; Z79.899 Other long term (current) drug therapy
CPT/HCPCS: 10120; 73630; 90471; 90715; 96372; 99282; 99284; J2003

== ENCOUNTER → 2025-01-24 10:38 | Outpatient (BNV) | payer MEDICAID, SELFPAY | PROVIDERS: Emergency Provider Emergency Medicine; PCP General Practice; Visit Provider Radiology Diagnostic Radiology | DX: S90.451A Superficial foreign body, right great toe, initial encounter (principal) | CPT/HCPCS: 73630 ==

== ENCOUNTER 2025-02-04 16:54 | Outpatient (REF) | payer MEDICAID, SELFPAY ==
[2025-02-06 20:03] LABS: HIV RNA PCR Qn Copies NOT DETECTED copies/mL (NOT DETECTED); HIV RNA PCR Qn Log Copies NOT DETECTED (NOT DETECTED)
[2025-02-08 17:29] LABS: Absolute CD3 Count 425 cells/uL (840-3060); Absolute CD4 Count 226 cells/uL (490-1740); Absolute CD8 Count 192 cells/uL (180-1170); Absolute Lymphocytes 761 cells/uL (850-3900); CD4 CD8 Ratio 1.18 (0.86-5.00); Percent CD3 Cells 56 % (57-85); Percent CD4 Cells 30 % (30-61); Percent CD8 Cells 25 % (12-42)
== END 2025-02-04 16:55 | disposition home or self-care (01) ==
LOC: HO.LAB 16:54
PROVIDERS: PCP General Practice; Visit Provider Internal Medicine
DX: Z21 Asymptomatic human immunodeficiency virus [HIV] infection status (principal)
CPT/HCPCS: 36415; 86359; 86360; 87536

== ENCOUNTER 2025-02-11 16:03 | Outpatient (AMB) | payer MEDICAID, SELFPAY ==
--- NOTE | 2025-02-11 16:38 | A.OFFVIS_ITS ---
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 Drug Required: No Accompanied by: Self / Same As Patient Allergies No Known Allergies Allergy (Verified 01/24/25 10:38) HPI Comprehensive Diabetes Asmnt Most Recent Diabetes Results: Creatinine 0.88 mg/dL (0.5-1.4) 12/17/24 Blood Urea Nitrogen 11 mg/dL (9-16) 12/17/24 Sodium 141 mmol/L (135-145) 12/17/24 Potassium 4.0 mmol/L (3.3-5.1) 12/17/24 Chloride 111 mmol/L (96-108) H 12/17/24 Carbon Dioxide 27 mmol/L (22-29) 12/17/24 Calcium 8.3 mg/dL (8.4-10.2) L 12/17/24 AST 107 U/L (5-37) H 12/17/24 ALT 65 U/L (0-40) H 12/17/24 Total Protein 7.3 g/dL (6.5-8.0) 12/17/24 Albumin 2.8 g/dL (3.5-5.0) L 12/17/24 [facility] [place] Medical History Housing insecurity Foreign body (FB) in soft tissue Diabetes mellitus type 2, uncomplicated, on mcc insulin pump Hepatitis C Cirrhosis Venereal warts HIV (human immunodeficiency virus infection) Diabetes mellitus Surgical History Hx of oral surgery History of esophagogastroduodenoscopy (EGD) Family History Paternal Grandfather Colon cancer Social History Alcohol intake: former Patient Tobacco Use Status: Current everyday Tobacco user Tobacco use type: Cigarette Cigarettes Per Day: 4 Substance Use Type: IV Drugs Assessment & Plan Assessment & Plan (1) Diabetes 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 Patient had resumed insulin pump therapy however, had not transitioned over to Dexcom G7 sensors. At today's visit instructed patient how to set up Dexcom G7 sensors with Omnipod 5 Instructed patient to only use room temperature insulin, how to load cartridge or fill pod, with insulin. Fill tubing and cannula (if applicable) Troubleshooting after starting new pod or inserting new insulin set: Occlusion, adhesive tape sensitivity, redness Check BG 2 hours after site change Safety information: Importance of a backup plan, for manual injections, proper prescriptions and emergency supplies ketone strips, and rules for testing for ketones Patient understands the basic concepts of pump therapy, how to give insulin for meals and snacks, how to troubleshoot for hyper and hypoglycemia. Setting verified by [facility], no changes to pump settings Basal rate(s) (units/hour) : 12 AM? to 12 AM? 0.5 units / hr Bolus setting Insulin Carbohydrate Ratio (s) 12 AM? to 12 AM? 1:14 Correction Factor / Sensitivity Factor 12 AM? to 12 AM? 1:50 Active Insulin Time:? 4 hours Target(s): 12 AM? to 12 AM? 120 mg/dL Correction Threshold 130 mg/dL Patient Instructions: Patient will follow-up as needed Coding Level of Care Code Est Pt Level 1 (58363) Diagnoses Diabetes mellitus type 2, uncomplicated, on mcc insulin pump E11.9; Z96.41
== END 2025-02-11 16:49 | disposition home or self-care (01) ==
LOC: HO.ENCR 16:04
PROVIDERS: PCP General Practice; Visit Provider Registered Nurse Diabetes Educator
DX: E11.9 Type 2 diabetes mellitus without complications (principal); Z96.41 Presence of insulin pump (external) (internal)

== ENCOUNTER → 2025-02-11 16:03 | Outpatient (BNVA) | payer MEDICAID, SELFPAY | PROVIDERS: PCP General Practice; Visit Provider Registered Nurse Diabetes Educator | DX: E11.9 Type 2 diabetes mellitus without complications (principal); Z46.81 Encounter for fitting and adjustment of insulin pump; Z79.4 Long term (current) use of insulin | CPT/HCPCS: 99211 ==